=== PATIENT | female | born 1975 | race Caucasian/White ===

== ENCOUNTER 2021-02-22 16:15 | Emergency (ER) | payer BC, SELFPAY ==
--- NOTE | ~2021-02-22 | CT_ITS ---
EXAMINATION: CT abd pelvis lumbar wo con DATE: 02/22/2021 19:32 INDICATION: Right flank pain TECHNIQUE: Computed tomography (CT) of the abdomen, pelvis, and lumbar spine was performed without in travenous contrast. The dose-length product (DLP) was 402.48 mGy-cm. Automated exposure control and i terative reconstruction technique were employed. COMPARISON: 06/20/2013 FINDINGS: Abdomen/pelvis: Minimal dependent atelectasis is present in the lung bases. The heart size is normal. There are changes of interval gastric sleeve surgery. The gallbladder is surgically absent. The live r, spleen, pancreas, and adrenal glands are normal. The kidneys are unremarkable. No stones are ident ified in the kidneys, ureters, or bladder. There is no hydronephrosis or hydroureter. No pathological ly enlarged abdominal or pelvic lymph nodes are identified. There is no free intraperitoneal gas or e vidence of bowel obstruction. The appendix is normal. Lumbar spine: There is no fracture, dislocation, or subluxation. The vertebral body heights, alignmen t, and intervertebral disc spaces are normal. The prevertebral soft tissues are normal. IMPRESSION: 1. No CT correlate for the patient's symptoms. Reviewed, dictated and finalized at location F. [facility]
[2021-02-22 16:17] VITALS: BP 182/90; PULSE 95; RESP 20; TEMP 36.2; O2SAT 99
[2021-02-22 18:36] VITALS: BP 158/104; PULSE 84; RESP 17; TEMP 36.4; O2SAT 98
[2021-02-22 18:41] VITALS: BP 168/72; PULSE 80; RESP 18; O2SAT 99
--- NOTE | 2021-02-22 18:57 | ED.BACK ---
HPI - Back Pain/Injury General Chief Complaint: Back Pain/Injury Stated Complaint: right lower back pain Time Seen by Provider: 02/22/21 18:42 Source: patient Mode of arrival: ambulatory Limitations: no limitations History of Present Illness HPI Narrative: This is a 45 year old female that presents to the ER for right sided flank pain present over the last couple of days. No recent injuries or trauma. Reports the pain is constant. It is burning in nature. Also reports some pressure in her bladder. Denies fever, vomiting, dysuria, hematuria, saddle anesthesia or bowel/bladder incontinence. Related Data Allergies Allergy/AdvReac Type Severity Reaction Status Date / Time metformin Allergy Unknown Verified 12/27/11 16:14 [email or web address] Allergy Unknown Verified 04/03/13 15:17 Review of Systems Review of Systems: CONSTITUTIONAL: Denies fever GASTROINTESTINAL: Denies abdominal pain, nausea, vomiting GENITOURINARY: Denies dysuria or hematuria. SKIN: Denies rash MUSCULOSKELETAL: Reports back pain NEUROLOGIC: Denies numbness, or weakness. All systems reviewed & are unremarkable except as noted in HPI and below PMFSH Surgical History Surgical History (Updated 02/22/21 @ 19:00 by Effie Cisneros PA-C) History of bariatric surgery Family History Family History (Updated 10/10/13 @ 07:13 by DOCTOR UNKNOWN) Father Family history of lung cancer Other Cerebrovascular accident Diabetes mellitus Family history of allergic disorder Family history of cardiovascular disease Hypertension Social History Social History (Updated 02/22/21 @ 19:00 by Effie Cisneros PA-C) Alcohol intake: never Substance use: never Exam Narrative: GENERAL: Well-appearing, well-nourished, and in no acute distress. HEAD: Normocephalic, atraumatic. EYES: EOMI. CHEST: Clear to auscultation. No respiratory distress. No wheezes rales or rhonchi HEART: Regular rate and rhythm. No murmur heard. Normal peripheral pulses. ABDOMEN: Soft, nontender, nondistended, normal active bowel sounds. BACK: Tender to palpation of the right lumbar paraspinal musculature EXTREMITIES: Normal range of motion. No edema. SKIN: Warm, dry, no rash. NEURO: No focal deficits. Alert and oriented x3. Normal gait PSYCH: Normal mood and affect Course Vital Signs Vital signs: Vital Signs Temperature 97.2 F L 02/22/21 16:17 Pulse Rate 95 02/22/21 16:17 Respiratory Rate 20 02/22/21 16:17 Blood Pressure 182/90 H 02/22/21 16:17 Pulse Oximetry 99 02/22/21 16:17 Temperature 97.6 F 02/22/21 18:36 Pulse Rate 80 02/22/21 18:41 Respiratory Rate 18 02/22/21 18:41 Blood Pressure 168/72 H 02/22/21 18:41 Pulse Oximetry 99 02/22/21 18:41 MDM - Back Pain/Injury MDM Narrative Medical decision making narrative: Patient presents to the emergency department for right-sided lower back pain present over the last couple of days. No known injury or trauma. Patient is neurologically intact. She is afebrile and nontoxic-appearing. CBC and metabolic panel without concerning findings. UA without evidence of infection. CT scan of the abdomen/pelvis/lumbar spine without acute findings. Patient was updated on case findings. Reports improvement with IV pain medication. She is stable and felt appropriate for further outpatient evaluation. Instructed to have close follow-up with her primary doctor. She was given warnings to return to the ER. Lab Data Attestation: I reviewed the patient's lab results. Result diagrams: 02/22/21 19:23 02/22/21 19:23 Labs: Lab Results 02/22/21 02/22/21 02/22/21 Range/Units 18:52 19:23 19:23 WBC 6.8 (4.5-10.0) K/mm3 RBC 3.85 L (4.2-5.4) M/mm3 Hgb 12.3 (12.0-15.0) g/dL Hct 35.9 L (37.0-47.0) % MCV 93.2 (80-100) fl MCH 31.9 (26-34) pg MCHC 34.3 (32-36) g/dl RDW 12.4 (11.5-14.5) % Plt Count 201 (150-375) k/mm3 MPV 10.0 (7.4-10.4) fl Im
[2021-02-22 19:08] LABS: Add Urine Microscopic? YES; Appearance Urine Clear (Clear); Bilirubin Urine Negative (Negative); Blood Urine Negative (Negative); Color Urine Yellow (Yellow); Glucose Urine UA Negative (Negative); Ketones Urine Negative (Negative); Leukocyte Esterase Ur Negative LEU/UL (Negative); Mucus Urine Rare /lpf; Nitrate Urine Negative (Negative); Protein Urine Negative (Negative); RBC Urine 0-2 /hpf (0-2); Specific Grav Ur 1.013 (1.001-1.035); Squamous Epithelial Cell Urine Occasional /hpf (Few); WBC Urine 0-3 /hpf
[2021-02-22 19:29] LABS: Basophils Percent Auto 0.4 % (0.2-1.2); Eosinophils Absolute Auto 0.4 K/mm3 (0-0.3); Eosinophils Percent Auto 5.4 % (0-4.4); Hematocrit 35.9 % (37.0-47.0); Hemoglobin 12.3 g/dL (12.0-15.0); Immature Granulocyte Absolute 0.02 K/mm3 (0.00-0.031); Immature Granulocyte Percent A 0.3 % (0-0.5); Lymphocytes Percent Auto 33.8 % (18.3-44.2); Mean Corpuscular HGB Conc 34.3 g/dl (32-36); Mean Corpuscular Hemoglobin 31.9 pg (26-34); Mean Corpuscular Volume 93.2 fl (80-100); Monocytes Absolute Auto 0.5 K/mm3 (0.1-0.6); Monocytes Percent Auto 7.9 % (2.6-8.5); Neutrophils Absolute Auto 3.5 K/mm3 (1.3-6.7); Neutrophils Percent Auto 52.2 % (45.5-73.1); Platelet Count Result 201 k/mm3 (150-375); Red Blood Count 3.85 M/mm3 (4.2-5.4); Red Cell Distribution Width 12.4 % (11.5-14.5); White Blood Count 6.8 K/mm3 (4.5-10.0)
[2021-02-22 19:40] LABS: Anion Gap 6 mmol/L (8-16); Blood Urea Nitrogen 14 mg/dL (7-17); Calcium 9.4 mg/dL (8.4-10.2); Carbon Dioxide 25 mmol/L (22-30); Chloride 105 mmol/L (98-107); Estimated CRCL calculation 113 ml/min; Estimated Glomerular Filt Rate > 60; Glucose 94 mg/dL (65-110); Potassium 3.8 mmol/L (3.4-5.0); Sodium 136 mmol/L (137-145)
[2021-02-22] MEDS: ONDANSETRON INJ 4 MG/2 ML VIAL IV PUSH (20:01)
[2021-02-22] MEDS: MORPHINE SULFATE (*CRX) 4 MG/ML INJ IV PUSH (20:02)
== END 2021-02-22 21:56 | disposition home or self-care (01) ==
PROVIDERS: Physician Assistant; Emergency Provider Emergency Medicine; PCP Internal Medicine
DX: S39.012A Strain of muscle, fascia and tendon of lower back, initial encounter (principal); Z98.84 Bariatric surgery status; X58.XXXA Exposure to other specified factors, initial encounter
CPT/HCPCS: 36415; 72131; 74176; 80048; 81001; 81025; 85025; 96374; 96375; 99284; J0131; J2270; J2405

== ENCOUNTER 2021-06-21 08:19 | Emergency (ER) | payer BC, SELFPAY ==
--- NOTE | ~2021-06-21 | CT_ITS ---
EXAMINATION: CT lumbar spine wo con DATE: 06/21/2021 09:20 INDICATION: Acute low back pain TECHNIQUE: Computed tomography (CT) of the lumbar spine was performed without intravenous contrast. T he dose-length product (DLP) was 733.42 mGy-cm. Iterative reconstruction was used. COMPARISON: 02/22/2021 FINDINGS: There is no fracture, dislocation, or subluxation. The vertebral body heights and intervert ebral disc spaces are normal. The paravertebral soft tissues are unremarkable. IMPRESSION: 1. Normal lumbar spine. Reviewed, dictated and finalized at location A. IMPRESSION: 1. Normal lumbar spine.
[2021-06-21 08:25] VITALS: BP 153/90; PULSE 90; RESP 18; TEMP 37.4; O2SAT 97
[2021-06-21 09:14] LABS: Basophils Percent Auto 0.6 % (0.2-1.2); Eosinophils Absolute Auto 0.6 K/mm3 (0-0.3); Eosinophils Percent Auto 8.7 % (0-4.4); Hematocrit 37.6 % (37.0-47.0); Hemoglobin 13.1 g/dL (12.0-15.0); Immature Granulocyte Absolute 0.01 K/mm3 (0.00-0.031); Immature Granulocyte Percent A 0.2 % (0-0.5); Lymphocytes Absolute Auto 1.76 K/mm3 (0.9-3.2); Lymphocytes Percent Auto 27.8 % (18.3-44.2); Mean Corpuscular HGB Conc 34.8 g/dl (32-36); Mean Corpuscular Volume 91.9 fl (80-100); Mean Platelet Volume 9.8 fl (7.4-10.4); Monocytes Absolute Auto 0.6 K/mm3 (0.1-0.6); Neutrophils Absolute Auto 3.3 K/mm3 (1.3-6.7); Neutrophils Percent Auto 52.7 % (45.5-73.1); Platelet Count Result 177 k/mm3 (150-375); Red Blood Count 4.09 M/mm3 (4.2-5.4); Red Cell Distribution Width 12.8 % (11.5-14.5); White Blood Count 6.3 K/mm3 (4.5-10.0)
[2021-06-21] MEDS: HYDROmorphone HCL INJ (*CRX) 1 MG/ML SYR 0.5 MG IV PUSH (09:16)
[2021-06-21] MEDS: KETOROLAC 15 MG/ML VIAL (*BKC) IV PUSH (09:16)
[2021-06-21 09:25] LABS: Bilirubin Urine Negative (Negative); Blood Urine Negative (Negative); Color Urine Yellow (Yellow); Glucose Urine UA Negative (Negative); Ketones Urine Negative (Negative); Leukocyte Esterase Ur Negative LEU/UL (Negative); Nitrate Urine Negative (Negative); Protein Urine Negative (Negative); Specific Grav Ur 1.025 (1.001-1.035); Urobilinogen Urine 0.2 mg/dL (<2.0); pH Urine 6.5 (5.0-9.0)
[2021-06-21 09:26] LABS: Alanine Aminotransferase 15 U/L (6-35); Albumin Level 4.1 g/dL (3.5-5.1); Alkaline Phosphatase 62 U/L (38-126); Anion Gap 3 mmol/L (8-16); Aspartate Amino Transferase 25 U/L (14-36); Bilirubin,Total 0.4 mg/dL (0.2-1.3); Blood Urea Nitrogen 15 mg/dL (7-17); Calcium 8.7 mg/dL (8.4-10.2); Carbon Dioxide 27 mmol/L (22-30); Chloride 106 mmol/L (98-107); Estimated CRCL calculation 96 ml/min; Estimated Glomerular Filt Rate > 60; Glucose 88 mg/dL (65-110); Potassium 3.5 mmol/L (3.4-5.0); Sodium 136 mmol/L (137-145)
[2021-06-21 09:26] LABS: Add Urine Microscopic? NO; Appearance Urine Clear (Clear)
[2021-06-21 10:08] VITALS: O2SAT 98
[2021-06-21 10:09] VITALS: BP 134/87; O2SAT 97
[2021-06-21 10:15] VITALS: O2SAT 97
[2021-06-21 10:16] VITALS: BP 135/91; O2SAT 98
--- NOTE | 2021-06-21 10:16 | ED.BACK ---
HPI - Back Pain/Injury General Chief Complaint: Back Pain/Injury Stated Complaint: low back pain Time Seen by Provider: 06/21/21 08:25 Source: patient and family Mode of arrival: ambulatory Limitations: no limitations History of Present Illness HPI Narrative: 45-year-old with a history of depression, hypertension here with complaints of low back pain for past few days. Patient denies any trauma or lifting heavy and objects. No history of bladder or bowel incontinence. States there is some bone rubbing in her lower back and it is causing to have severe pain. She denies any urinary symptoms. MD elicited complaint: back pain Onset (ago): day(s) (3) Timing: constant Severity: severe Similar Symptoms Previously: No Quality: aching Location: lumbar spine Radiation: none Exacerbating factors: none Relieving factors: none Context: other (none) Associated symptoms: denies other symptoms Related Data Allergies Allergy/AdvReac Type Severity Reaction Status Date / Time metformin Allergy Unknown Other Verified 06/21/21 08:29 [email or web address] Allergy Unknown Other Verified 06/21/21 08:29 Review of Systems Review of Systems: All systems reviewed & are unremarkable except as noted in HPI and below Constitutional: Constitutional: Reports no additional constitutional complaints Eyes: Eyes: Reports no additional eye complaints ENT: Reports system reviewed and no additional complaints, except as documented Cardiovascular: Cardiovascular: Reports no additional cardiovascular complaints Respiratory: Respiratory: Reports no additional respiratory complaints Gastrointestinal: Gastrointestinal: Reports no additional gastrointestinal complaints Genitourinary: Genitourinary: Reports no additional female genitourinary complaints Musculoskeletal: Musculoskeletal: Reports as per HPI Neurologic: Reports system reviewed and no additional complaints, except as documented PMFSH Surgical History Surgical History History of bariatric surgery Family History Family History Father Family history of lung cancer Other Cerebrovascular accident Diabetes mellitus Family history of allergic disorder Family history of cardiovascular disease Hypertension Social History Social History Alcohol intake: never Substance use: never Exam Narrative: GENERAL: Well-appearing, well-nourished, and in no acute distress. HEAD: Normocephalic, atraumatic. EYES: PERRLA and EOMI. NECK: Supple. CHEST: Clear to auscultation. No respiratory distress. HEART: Regular rate and rhythm. No murmur heard. Normal peripheral pulses. ABDOMEN: Soft, nontender, nondistended, normal active bowel sounds. EXTREMITIES: Normal range of motion. No edema. Back pain in the L5-S1 area. No point tenderness. SLR positive at 40 degrees on the right SKIN: Warm, dry, no rash. NEURO: No focal deficits. Alert and oriented x3. PSYCH: Normal mood and affect. Course Course Emergency Course: Patient comfortably resting on the bed her pain is improved she was able to ambulate to the bathroom. Informed her about the lab work, CT findings. Recommended her to take pain medication and muscle relaxers as prescribed, follow-up with her primary doc. Vital Signs Vital signs: Vital Signs Temperature 37.4 C 06/21/21 08:25 Pulse Rate 90 06/21/21 08:25 Respiratory Rate 18 06/21/21 08:25 Blood Pressure 153/90 H 06/21/21 08:25 Pulse Oximetry 97 06/21/21 08:25 Temperature 37.4 C 06/21/21 08:25 Pulse Rate 90 06/21/21 08:25 Respiratory Rate 18 06/21/21 08:25 Blood Pressure 153/90 H 06/21/21 08:25 Pulse Oximetry 97 06/21/21 08:25 MDM - Back Pain/Injury MDM Narrative Medical decision making narrative: 45-year-old with history of hypertension now having lower back pain with no trauma or lifting she
[2021-06-21 10:35] VITALS: BP 135/91; PULSE 81; RESP 16; O2SAT 97
== END 2021-06-21 10:36 | disposition home or self-care (01) ==
PROVIDERS: Emergency Provider Family Medicine; PCP Internal Medicine
DX: S39.012A Strain of muscle, fascia and tendon of lower back, initial encounter (principal); I10 Essential (primary) hypertension; Z98.84 Bariatric surgery status; X58.XXXA Exposure to other specified factors, initial encounter
CPT/HCPCS: 36415; 72131; 80053; 81003; 85025; 96374; 96375; 99284; J1100; J1170; J1885

== ENCOUNTER 2022-04-24 21:05 | Emergency (ER) | payer BC, SELFPAY ==
[2022-04-24 21:05] VITALS: BP 150/90; PULSE 109; RESP 18; TEMP 38.2; O2SAT 98
--- NOTE | 2022-04-24 21:15 | ED.URI ---
HPI - URI/Sore Throat General Chief Complaint: Upper Respiratory Infection Stated Complaint: Sore Throat Time Seen by Provider: 04/24/22 21:15 Source: patient and RN notes reviewed Mode of arrival: ambulatory Limitations: no limitations History of Present Illness MD elicited complaint: sore throat Onset (ago): day(s) (2) Consistency: constant Severity: moderate Able to tolerate fluids by mouth: Yes Exacerbating factors: swallowing Relieving factors: nothing Associated symptoms: fever, chills, myalgias, headache, sore throat and nausea Related Data Home Medications Medication Instructions Recorded Confirmed esomeprazole magnesium 40 mg 40 mg PO DAILY 04/24/22 04/24/22 capsule,delayed release (Nexium) paroxetine HCl 40 mg tablet 40 mg PO DAILY 04/24/22 04/24/22 Allergies Allergy/AdvReac Type Severity Reaction Status Date / Time metformin Allergy Unknown Other Verified 06/21/21 08:29 [email or web address] Allergy Unknown Other Verified 06/21/21 08:29 [facility] Past Medical History Medical History (Updated 04/25/22 @ 00:00 by Bar Quach) Depression GERD (gastroesophageal reflux disease) Surgical History Surgical History History of bariatric surgery Family History Family History Father Family history of lung cancer Other Cerebrovascular accident Diabetes mellitus Family history of allergic disorder Family history of cardiovascular disease Hypertension Social History Social History Alcohol intake: never Substance use: never Exam Const: General: no acute distress, alert and ill appearing acutely Nutritional Appearance: well nourished Orientation/consciousness: patient oriented x3 Limitations: no limitations HENMT: Head: normal to inspection Ears: TM's normal bilaterally Face/Nose/Sinus: Normal external nose present Face and sinus: normal facial exam Mouth: Yes moist mucous membranes abnormal Throat: uvula midline, abnormal tonsil on the left erythema, exudates and hypertrophy and posterior oropharynx abnormal erythema and exudates Eyes: Conjunctivae: conjunctivae normal Pupils: Equal, round and reactive pupils present EOM: EOMs intact bilaterally Neck: Neck: normal visual inspection and lymphadenopathy left anterior cervical soft and tender Resp: Effort & Inspection: normal respiratory effort Auscultation: clear to auscultation bilaterally Cardio: Rate: regular rate Rhythm: regular rhythm GI: GI Palp: Yes Soft to palpation and No Tenderness to palpation present (GI) Auscultation: normal bowel sounds Back/Spine/Pelvis: Cervical Spine: cervical ROM normal Thoracic/Lumbar Spine: thoraco-lumbar ROM normal Skin: General skin exam: normal color Rashes: no rashes Neuro: General: patient oriented x3, moves all extremities, no focal motor deficits and CN's II-XI intact bilaterally Speech: normal speech Gait exam (Neuro): Normal gait present Extrem: General: normal to inspection and no clubbing, cyanosis or edema Psych: Mental Status: mental status grossly normal Affect: normal affect Attitude: cooperative Course Vital Signs Vital signs: Vital Signs Temperature 38.2 C H 04/24/22 21:05 Pulse Rate 109 H 04/24/22 21:05 Respiratory Rate 18 04/24/22 21:05 Blood Pressure 150/90 H 04/24/22 21:05 Pulse Oximetry 98 04/24/22 21:05 Oxygen Delivery Room Air 04/24/22 21:05 Temperature 38.2 C H 04/24/22 22:20 Pulse Rate 94 04/24/22 22:20 Respiratory Rate 20 04/24/22 22:20 Blood Pressure 132/85 04/24/22 22:20 Pulse Oximetry 98 04/24/22 22:20 Oxygen Delivery Room Air 04/24/22 22:20 MDM - URI/Sore Throat Differential Diagnosis Differential diagnosis: Likely upper respiratory infection, viral infection, bronchitis, influenza, pharyngitis and other (COVID) Lab Data Attestation: I reviewed the
[2022-04-24] MEDS: ACETAMINOPHEN 500 MG TABLET 1000 MG PO (21:21)
[2022-04-24 21:49] VITALS: BP 136/82; PULSE 98; RESP 18; TEMP 38.7; O2SAT 97
[2022-04-24 21:50] VITALS: TEMP 38.7
[2022-04-24 21:52] LABS: Strep Group A RT-PCR DETECTED (Negative)
[2022-04-24 22:04] LABS: Influenza A QL RT-PCR Negative (Negative); Influenza B QL RT-PCR Negative (Negative); SARS-CoV-2 RNA PCR Negative (Negative)
[2022-04-24] MEDS: AMOXICILLIN 250 MG CAP PO (22:14)
[2022-04-24 22:20] VITALS: BP 132/85; PULSE 94; RESP 20; TEMP 38.2; O2SAT 98
== END 2022-04-24 22:22 | disposition home or self-care (01) ==
PROVIDERS: Emergency Provider Emergency Medicine; PCP Internal Medicine
DX: J02.0 Streptococcal pharyngitis (principal); Z20.822 Contact with and (suspected) exposure to COVID-19
CPT/HCPCS: 87636; 87651; 99283; A9270

== ENCOUNTER → 2022-07-06 09:05 | Outpatient (CLI) | payer BC, SELFPAY ==
--- NOTE | ~2022-07-06 | US_ITS ---
US abdomen limited INDICATION: Abdominal pain nausea and vomiting. PROCEDURE: Realtime right upper abdominal ultrasound. COMPARISON: No prior studies for comparison. FINDINGS: The pancreas is normal without focal mass or pancreatic ductal dilation. Liver echotexture is normal without focal mass or intrahepatic biliary dilatation. There is normal directional flow i n the portal vein. Gallbladder is surgically absent. Common bile duct measures 5 mm. No sonographic Camara's sign. IMPRESSION: 1: Unremarkable limited abdominal ultrasound. Reviewed, dictated and finalized at location B.
== END ==
PROVIDERS: PCP Nurse Practitioner Family; Visit Provider Nurse Practitioner Family
DX: R10.10 Upper abdominal pain, unspecified (principal)
CPT/HCPCS: 76705

== ENCOUNTER 2022-07-07 07:39 | Outpatient (CLI) | payer BC, SELFPAY ==
[2022-07-07 08:15] LABS: Basophils Absolute Auto 0.1 K/mm3 (0.0-0.1); Basophils Percent Auto 0.6 % (0.2-1.2); Eosinophils Absolute Auto 0.4 K/mm3 (0-0.3); Eosinophils Percent Auto 4.8 % (0-4.4); Hematocrit 40.3 % (37.0-47.0); Hemoglobin 13.4 g/dL (12.0-15.0); Immature Granulocyte Absolute 0.03 K/mm3 (0.00-0.031); Immature Granulocyte Percent A 0.4 % (0-0.5); Lymphocytes Absolute Auto 2.72 K/mm3 (0.9-3.2); Lymphocytes Percent Auto 33.7 % (18.3-44.2); Mean Corpuscular HGB Conc 33.3 g/dl (32-36); Mean Corpuscular Hemoglobin 30.7 pg (26-34); Mean Corpuscular Volume 92.4 fl (80-100); Mean Platelet Volume 10.3 fl (7.4-10.4); Monocytes Absolute Auto 0.6 K/mm3 (0.1-0.6); Monocytes Percent Auto 7.7 % (2.6-8.5); Neutrophils Absolute Auto 4.3 K/mm3 (1.3-6.7); Neutrophils Percent Auto 52.8 % (45.5-73.1); Platelet Count Result 283 k/mm3 (150-375); Red Blood Count 4.36 M/mm3 (4.2-5.4); Red Cell Distribution Width 13.1 % (11.5-14.5); White Blood Count 8.1 K/mm3 (4.5-10.0)
[2022-07-07 08:22] LABS: Appearance Urine Clear (Clear); Bacteria Urine None Seen /hpf; Bilirubin Urine Negative (Negative); Blood Urine Negative (Negative); Color Urine Yellow (Yellow); Glucose Urine UA Negative (Negative); Ketones Urine Negative (Negative); Leukocyte Esterase Ur 2+ LEU/UL (NEGATIVE); Nitrate Urine Negative (Negative); Non Pathogenic Casts 0-2; Protein Urine Trace mg/dL (Negative); Specific Grav Ur 1.027 (1.001-1.035); Squamous Epithelial Cell Urine Occasional /hpf (Few)
[2022-07-07 08:30] LABS: Add Urine Microscopic? YES
[2022-07-07 09:22] LABS: Vitamin D 25 Hydroxy 15.8 ng/mL
[2022-07-07 09:44] LABS: Alanine Aminotransferase 19 U/L (6-35); Albumin Level 4.3 g/dL (3.5-5.1); Alkaline Phosphatase 74 U/L (38-126); Anion Gap 7 mmol/L (8-16); Aspartate Amino Transferase 29 U/L (14-36); Bilirubin,Total 0.4 mg/dL (0.2-1.3); Blood Urea Nitrogen 11 mg/dL (7-17); Carbon Dioxide 28 mmol/L (22-30); Chloride 105 mmol/L (98-107); Cholesterol 201 mg/dL (0-200); Estimated Glomerular Filt Rate > 60; Glucose 87 mg/dL (65-110); HDL Direct 53 mg/dL; Magnesium 2.2 mg/dL (1.6-2.3); Potassium 3.7 mmol/L (3.4-5.0); Sodium 140 mmol/L (137-145); Triglycerides 113 mg/dL (<150)
[2022-07-07 09:56] LABS: LDL Cholesterol Direct 120 mg/dL
[2022-07-07 10:50] LABS: Folic Acid 3.4 ng/mL (2.76->20)
[2022-07-07 11:20] LABS: Iron 104 ug/dL (37-170)
[2022-07-07 11:31] LABS: Percent Iron Saturation 39 % (20-50)
== END 2022-07-07 07:40 | disposition home or self-care (01) ==
PROVIDERS: PCP Nurse Practitioner Family; Visit Provider Nurse Practitioner Family
DX: Z00.00 Encounter for general adult medical examination without abnormal findings (principal); Z13.29 Encounter for screening for other suspected endocrine disorder; Z13.6 Encounter for screening for cardiovascular disorders; E55.9 Vitamin D deficiency, unspecified; Z98.84 Bariatric surgery status; M62.838 Other muscle spasm; F41.9 Anxiety disorder, unspecified; F32.9 Major depressive disorder, single episode, unspecified; D64.9 Anemia, unspecified
CPT/HCPCS: 36415; 80053; 80061; 81001; 82306; 82607; 82728; 82746; 83540; 83550; 83735; 84443; 85025

== ENCOUNTER 2022-09-23 10:40 | Outpatient (CLI) | payer BC, SELFPAY ==
--- NOTE | ~2022-09-23 | XR_ITS ---
Thoracic spine: Clinical Indication: Back pain AP and lateral views were performed. No fracture is seen. There is normal alignment of the vertebrae. The intervertebral disc spaces appe ar normal. Paravertebral soft tissues appear normal. Impression: No significant abnormalities noted. Reviewed, dictated and finalized at [facility]. Impression: No significant abnormalities noted.
== END 2022-09-23 10:41 | disposition home or self-care (01) ==
PROVIDERS: PCP Nurse Practitioner Family; Visit Provider Nurse Practitioner Family
DX: M54.6 Pain in thoracic spine (principal)
CPT/HCPCS: 72070

== ENCOUNTER 2022-10-09 14:00 | Emergency (ER) | payer BC, SELFPAY ==
--- NOTE | ~2022-10-09 | XR_ITS ---
EXAMINATION: 1. XR femur LT min 2V 2. XR hip BI 2V w AP pelvis DATE: 10/09/2022 15:03 INDICATION: Posterior left hip and buttock pain radiating down the left leg post fall one day prior. TECHNIQUE: 1. Anteroposterior view of the pelvis and anteroposterior and frog-leg lateral views of both the left and right hips were obtained. 2. AP and lateral views of the left femur were each obtained on overlapping proximal and distal image s. COMPARISON: None. FINDINGS: Bone alignment is normal. No fracture or suspected avascular necrosis. Coccygeal profunda and mild os teoarthritis of both hips. Additional mild osteoarthritis at the bilateral sacroiliac joints and mild osteitis pubis. Cystic change at the anterosuperior left femoral neck. Joint space at the left knee appear normal on nonweightbearing imaging. No left knee joint effusion. Soft tissues are unremarkable . IMPRESSION: 1. 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 No acute osseous abn ormality. Reviewed, dictated and finalized at location A. IMPRESSION: 1. Mild polyarticular osteoarthritis in the bilateral hip and sacroiliac joints . No acute osseous abnormality.
[2022-10-09 14:00] VITALS: BP 151/88; PULSE 88; RESP 16; TEMP 37.3; O2SAT 99
[2022-10-09 14:11] VITALS: BP 151/88; PULSE 88; RESP 16; TEMP 37.3; O2SAT 99
[2022-10-09] MEDS: methylPREDNISolone ACETATE 40 MG/ML VIAL 80 MG IM (14:28)
[2022-10-09] MEDS: ORPHENADRINE CITRATE 30 MG/ML 2 ML VIAL 60 MG IM (14:29)
[2022-10-09] MEDS: MORPHINE SULFATE (*CRX) 4 MG/ML INJ IM (14:29)
--- NOTE | 2022-10-09 14:40 | ED.FALL ---
HPI - Fall General Chief Complaint: Fall Stated Complaint: fall Time Seen by Provider: 10/09/22 14:09 Source: patient and family Mode of arrival: ambulatory Limitations: physical limitation History of Present Illness HPI Narrative: 46 yo F with PMHx of soham-en-y gastric bypass surgery, depression, anxiety, presented to ED after sustaining a fall from standing position and landed in the left buttock area. She said pain is 10/10 and she also has numbness and tingling down her LLE. She denied any saddle anesthesia. She has normal urine and bowel habits. MD complaint: fall Onset (ago): hour(s) Fall from: standing Fall witnessed: yes, by family Place fall occurred: street Loss of consciousness: none Prolonged down time: no Symptoms prior to fall: none Context: tripped/slipped Location of injury: pelvis and buttocks Location of injury - extremities: Left: thigh Severity: severe Severity scale (1-10): 10 Quality: stabbing Associated symptoms (after fall): numbness Related Data Allergies Allergy/AdvReac Type Severity Reaction Status Date / Time metformin Allergy Unknown Other Verified 10/09/22 14:10 [email or web address] Allergy Unknown Other Verified 10/09/22 14:10 Review of Systems Constitutional: Constitutional: Reports as per HPI and Reports no additional constitutional complaints Eyes: Eyes: Reports as per HPI and Reports no additional eye complaints ENT: Reports system reviewed and no additional complaints, except as documented and Reports as per HPI Cardiovascular: Cardiovascular: Reports as per HPI and Reports no additional cardiovascular complaints Respiratory: Respiratory: Reports as per HPI and Reports no additional respiratory complaints Gastrointestinal: Gastrointestinal: Reports as per HPI and Reports no additional gastrointestinal complaints Genitourinary: Genitourinary: Reports as per HPI Musculoskeletal: Musculoskeletal: Reports no additional musculoskeletal complaints and Reports as per HPI Integumentary/Breasts: Skin/Breast: Reports system reviewed and no additional complaints, except as docu and Reports as per HPI Neurologic: Reports system reviewed and no additional complaints, except as documented and Reports as per HPI Psychiatric: Psychiatric: Reports no additional psychiatric complaints and Reports as per HPI Endocrine: Endocrine: Reports no additional endocrine complaints and Reports as per HPI Hematologic/Lymphatic: Hematologic/Lymphatic: Reports no additional hematologic/lymphatic complaints and Reports as per HPI Allergic/Immunologic: Allergic/Immunologic: Reports no additional allergic/immunologic complaints and Reports as per HPI [facility] Past Medical History Medical History (Updated 10/09/22 @ 15:32 by Nico Michel MD) Allergies Anemia Anxiety Cholecystectomy planned Depression Elevated BP without diagnosis of hypertension Encounter to establish care GERD (gastroesophageal reflux disease) History of abdominal hernia Insomnia Major depression Migraines Muscle spasm Screening mammogram for breast cancer Thoracic back pain Tobacco abuse Upper abdominal pain Vitamin D deficiency Vitamin deficiency Surgical History Surgical History (Updated 05/31/22 @ 12:03 by Darcie Kwan NP) History of bariatric surgery History of hysterectomy Family History Family History (Updated 05/30/22 @ 10:27 by TODD Aguilar) Father Family history of lung cancer Hypertension Grandparent Cancer Hypertension Depression Diabetes mellitus Anxiety Mother Hypertension Depression Anxiety Sibling Depression Anxiety Other Cerebrovascular accident Family history of allergic disorder Family history of cardiovascular disease Social History Social History Smoking packs per day: 1 Smoking cigarettes per day: 20.0 Smoking status: Current every day smoker Alcohol intake: current Alcohol use details: Rarely Substance u
[2022-10-09 15:24] VITALS: BP 140/78; PULSE 87; RESP 16; O2SAT 99
== END 2022-10-09 15:39 | disposition home or self-care (01) ==
PROVIDERS: Emergency Provider Emergency Medicine; PCP Nurse Practitioner Family
DX: M25.552 Pain in left hip (principal); F17.210 Nicotine dependence, cigarettes, uncomplicated; W01.0XXA Fall on same level from slipping, tripping and stumbling without subsequent striking against object, initial encounter
CPT/HCPCS: 73521; 73552; 96372; 99284; J1030; J2270; J2360

== ENCOUNTER 2022-11-11 11:36 | Emergency (ER) | payer OTHER, BC, SELFPAY ==
--- NOTE | ~2022-11-11 | CT_ITS ---
EXAMINATION: CT cervical spine wo con DATE: 11/11/2022 13:28 INDICATION: Head injury. TECHNIQUE: Computed tomography (CT) of the cervical spine was performed without intravenous contrast. Automated exposure control and iterative reconstruction technique were employed. The dose-length pro duct was 443.12 mGy-cm. COMPARISON: None FINDINGS: There is 9 degrees dextrocurvature of cervical spine. There is mild kyphosis of cervical sp ine. Vertebral body heights are normal. There is mildly decreased disc height at C3-C4. The following disc levels are specifically discussed: C2-C3: There is no uncovertebral joint osteoarthritis. There is mild right and severe left facet join t osteoarthritis. There is mild left neural foraminal stenosis. There is no central canal stenosis. C3-C4: There is mild left uncovertebral joint osteoarthritis. There is moderate left facet joint oste oarthritis. There is no neural foraminal stenosis. There is mild central canal stenosis. C4-C5: There is no uncovertebral joint osteoarthritis. There is no facet joint osteoarthritis. There is no neural foraminal stenosis. There is no central canal stenosis. C5-C6: There is no uncovertebral joint osteoarthritis. There is no facet joint osteoarthritis. There is no neural foraminal stenosis. There is no central canal stenosis. C6-C7: There is no uncovertebral joint osteoarthritis. There is no facet joint osteoarthritis. There is no neural foraminal stenosis. There is mild central canal stenosis. C7-T1: There is no uncovertebral joint osteoarthritis. There is mild bilateral facet joint osteoarthr itis. There is no neural foraminal stenosis. There is no central canal stenosis. IMPRESSION: 1. No fracture. 2. Mild cervical spondylosis. Reviewed, dictated and finalized at location E.
--- NOTE | ~2022-11-11 | CT_ITS ---
EXAMINATION: CT BRAIN W/O DATE: 11/11/2022 13:28 INDICATION: Trauma. TECHNIQUE: Computed tomography (CT) of the head was performed without intravenous contrast. The dose- length product was 681.00 mGy-cm. Automated exposure control and iterative reconstruction technique w ere employed. COMPARISON: No prior studies for comparison. FINDINGS: Normal brain parenchymal volume for age. Normal witt-white differentiation. No acute intrac ranial hemorrhage, infarction, mass or mass effect. No ventriculomegaly or midline shift. Midline sagittal images demonstrate a normal corpus callosum, c raniovertebral junction and sella turcica. Basilar cisterns are patent. Paranasal sinuses and mastoids are pneumatized. No depressed skull fractures. IMPRESSION: 1. No acute intracranial abnormality. Reviewed, dictated and finalized at location B.
--- NOTE | ~2022-11-11 | XR_ITS ---
EXAMINATION: XR hip RT 2V w AP pelvis DATE: 11/11/2022 13:34 INDICATION: Right hip pain. Fall. TECHNIQUE: An anteroposterior view of the pelvis and 2 views of right hip were obtained. COMPARISON: Pelvis and hip radiographs 10/09/2022 FINDINGS: Bone alignment is normal. No fracture. There is mild osteoarthritis of the hips. Osteitis p ubis is noted. IMPRESSION: 1. Mild osteoarthritis of the hips. Reviewed, dictated and finalized at location E.
[2022-11-11 11:41] VITALS: BP 167/92; PULSE 77; RESP 17; TEMP 36.7; O2SAT 100
[2022-11-11] MEDS: ONDANSETRON HCL ODT 4 MG TABLET PO (12:38)
[2022-11-11] MEDS: CYCLOBENZAPRINE HCL 10 MG TABLET PO (12:38)
--- NOTE | 2022-11-11 12:47 | ED.GENADULT ---
HPI - General Adult General Chief complaint: Fall Stated complaint: fall, dizzy Time Seen by Provider: 11/11/22 12:09 History of Present Illness HPI narrative: Sara Rivas is a 46 y/o female who presents with reports of ground level fall, slipping on a wet floor at about 1100 today while at work. She says that she slipped on the floor falling backwards hitting the back of her head and her right hip She reports she was able to get back up, she sat at her desk and then started to feel a little out of it, fuzzy vision so she decided to come get checked out. Reports feeling a little nauseated, with a slight headache - she took Excedrin [employer] Related Data Home Medications Medication Instructions Recorded Confirmed esomeprazole magnesium 40 mg mg 11/11/22 capsule,delayed release Allergies Allergy/AdvReac Type Severity Reaction Status Date / Time metformin Allergy Unknown Other Verified 10/09/22 14:10 varenicline Allergy Unknown Other Verified 10/09/22 14:10 Review of Systems Review of Systems: CONSTITUTIONAL: Denies fever, chills, or sweats. EYES: Denies visual changes, redness, or discharge. ENT: Denies rhinorrhea, congestion, sore throat, or otalgia. CARDIOVASCULAR: Denies chest pain, palpitations, or edema. RESPIRATORY: Denies cough or dyspnea. GASTROINTESTINAL: Denies abdominal pain, nausea, vomiting, or diarrhea. GENITOURINARY: Denies dysuria or hematuria. SKIN: Denies rash or itching. MUSCULOSKELETAL: Denies back pain, joint pain, or myalgia. NEUROLOGIC: Reports headache, Denies numbness. PSYCHIATRIC: Denies anxiety or depression. [facility] Past Medical History Medical History Allergies Anemia Anxiety Cholecystectomy planned Depression Elevated BP without diagnosis of hypertension Encounter to establish care GERD (gastroesophageal reflux disease) History of abdominal hernia Insomnia Major depression Migraines Muscle spasm Screening mammogram for breast cancer Thoracic back pain Tobacco abuse Upper abdominal pain Vitamin D deficiency Vitamin deficiency Surgical History Surgical History History of bariatric surgery History of hysterectomy Family History Family History Father Family history of lung cancer Hypertension Grandparent Cancer Hypertension Depression Diabetes mellitus Anxiety Mother Hypertension Depression Anxiety Sibling Depression Anxiety Other Cerebrovascular accident Family history of allergic disorder Family history of cardiovascular disease Social History Social History Smoking packs per day: 1 Smoking cigarettes per day: 20.0 Smoking status: Current every day smoker Alcohol intake: current Alcohol use details: Rarely Substance use: never Substance use type: does not use Lack of Transportation: No Lack of Food: Never True Current Housing: I Have Housing Concerned About Future Housing: No Difficulty Paying Gas/Electric Bills: No Difficulty Paying for Meds: No Currently Unemployed: No Education: High School Diploma/GED Difficulty w/ Childcare or Family Care: No Exam Narrative: GENERAL: Well-appearing, well-nourished, and in no acute distress. HEAD: Normocephalic, atraumatic. EYES: PERRLA and EOMI. ENT: Nares clear, no rhinorrhea or epistaxis. Mucous membranes moist. Oropharynx without tonsillar hypertrophy exudate or other lesions. NECK: Supple. No adenopathy or masses. No carotid bruits or JVD CHEST: Clear to auscultation. No respiratory distress. No wheezes rales or rhonchi HEART: Regular rate and rhythm. No murmur heard. Normal peripheral pulses. ABDOMEN: Soft, nontender, nondistended, normal active bowel sounds. EXTREMITIES: Normal range of motion. No edema. SKIN: Warm, dry, no rash. NEURO: No f
[2022-11-11 14:09] VITALS: BP 134/97; PULSE 81; RESP 16; O2SAT 97
== END 2022-11-11 14:13 | disposition home or self-care (01) ==
PROVIDERS: Emergency Provider Nurse Practitioner Family; PCP Nurse Practitioner Family
DX: S79.911A Unspecified injury of right hip, initial encounter (principal); K21.9 Gastro-esophageal reflux disease without esophagitis; E55.9 Vitamin D deficiency, unspecified; F41.9 Anxiety disorder, unspecified; F32.9 Major depressive disorder, single episode, unspecified; F17.210 Nicotine dependence, cigarettes, uncomplicated; Z86.2 Personal history of diseases of the blood and blood-forming organs and certain disorders involving the immune mechanism; Z98.84 Bariatric surgery status; Z90.710 Acquired absence of both cervix and uterus; M47.812 Spondylosis without myelopathy or radiculopathy, cervical region; M16.0 Bilateral primary osteoarthritis of hip; W01.0XXA Fall on same level from slipping, tripping and stumbling without subsequent striking against object, initial encounter
CPT/HCPCS: 70450; 72125; 73502; 99284; A9270

== ENCOUNTER 2024-01-27 11:13 | Emergency (ER) | payer SELFPAY ==
--- NOTE | ~2024-01-27 | XR_ITS ---
EXAMINATION: XR tibia fibula RT 2V, XR ankle RT min 3V DATE: 01/27/2024 11:49 INDICATION: Trauma to the right lower leg with pain and swelling at the right ankle TECHNIQUE: 1. Anteroposterior and lateral views of the right tibia and fibula were obtained. 2. Anteroposterior, oblique, mortise, and lateral views of the right ankle were obtained. COMPARISON: None. FINDINGS: Bone alignment is normal. No fracture. Joint spaces appear normal at the right knee, ankle and visual ized mid and hindfoot. Moderate-sized Achilles and plantar calcaneal spurs. Mild subcutaneous edema a t the medial aspect of the distal lower leg and extending over the medial malleolus. No ankle joint e ffusion. IMPRESSION: 1. No osseous abnormality. Reviewed, dictated and finalized at location A. R OFF DRYING KILN IMPRESSION: 1. No osseous abnormality. IMPRESSION: 1. No osseous abnormality.
[2024-01-27 11:15] VITALS: BP 148/90; PULSE 84; RESP 20; TEMP 37.4
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
[2024-01-27] MEDS: KETOROLAC 30 MG/ML VIAL (*BKC) IM (12:02)
[2024-01-27 12:21] VITALS: BP 137/84; PULSE 74; RESP 20; TEMP 36.8; O2SAT 98
--- OUTSIDE RECORDS SUMMARY | 2024-01-31 09:09 | XMS_ITS | Continuity of Care Document ---
Author Organization [facility] Address [address] [place] [address] [address] [place] [address] Phone Care Team Providers Care [place]us[place] Name Role Phone Zheng OD, Ciro Unavailable Unavailable Procedures Procedure Date Eye Exam & Treatment Advance Directives Directive Yes / No Effective Date File Name No Information Encounters Encounter Description Practice Location Reason(s) For Visit Diagnoses Date Provider Providers Copied on Encounter [facility], [address] [place] [address] [address], [place], [place], [id number], [place] tel:[phone] [facility] No Information 8-200 9 Zheng OD Ciro. [address] [facility] [place] , [address], [place], [address], [place]. tel:[phone] Family History Family Member Type Diagnosis Age At Onset No Information Payers Payer name Insurance type Covered constitution party ID Authoriza tion(s) Medicaid [facility] [id number] Social History Type Description Quantity Date Captured [...]
--- OUTSIDE RECORDS SUMMARY | 2024-01-31 11:31 | XMS_ITS | Continuity of Care Document ---
Author Organization [facility] Address [address] [place] [address] [address] [place] [address] Phone Care Team Providers Care [employer] Name Role Phone Zheng OD, Ciro Unavailable Unavailable Procedures Procedure Date Eye Exam & Treatment Advance Directives Directive Yes / No Effective Date File Name No Information Encounters Encounter Description Practice Location Reason(s) For Visit Diagnoses Date Provider Providers Copied on Encounter [facility], [address] [place] [address] [address], [place], [place], [id number], [place] tel:[phone] [facility] No Information 8-200 9 Zheng OD Ciro. [address] [facility] [place] , [address], [place], [address], [place]. tel:[phone] Family History Family Member Type Diagnosis Age At Onset No Information Payers Payer name Insurance type Covered republican ID Authoriza tion(s) Medicaid [facility] [id number] Social History Type Description Quantity Date Captured [...]
== END 2024-01-27 12:21 | disposition home or self-care (01) ==
PROVIDERS: Emergency Provider Internal Medicine Critical Care Medicine
DX: S80.11XA Contusion of right lower leg, initial encounter (principal); S93.401A Sprain of unspecified ligament of right ankle, initial encounter; F17.210 Nicotine dependence, cigarettes, uncomplicated; Z23 Encounter for immunization; W50.0XXA Accidental hit or strike by another person, initial encounter
CPT/HCPCS: 73590; 73610; 90471; 96372; 99284; J1885

== ENCOUNTER 2024-02-22 19:43 | Observation (INO) | payer OTHER, SELFPAY ==
[2024-02-22] VITALS (28 sets, daily range): BP systolic 113–157; BP diastolic 72–97; PULSE 63–110; RESP 13–22; TEMP 36.6; O2SAT 97–100; BMI 26.1
--- NOTE | ~2024-02-22 | CT_ITS ---
EXAMINATION: CTA chest abdomen DATE: 02/22/2024 21:23 INDICATION: chest pain radiating to back, suspected dissection . TECHNIQUE: Computed tomography (CT) of the chest, abdomen, and pelvis was performed with 100 mL Omnip aque-350 intravenous contrast in the arterial phase. Automated exposure control and iterative reconst ruction technique were employed. The dose-length product was 653.26 mGy-cm. COMPARISON: CT abdomen pelvis 02/22/2021 FINDINGS: CHEST: Thoracic aorta: No significant dilation. No dissection. Lung parenchyma and airways: Lungs and airways are clear. Thoracic inlet, axillae and chest wall: No thyroid or soft tissue mass. No axillary lymphadenopathy. Mediastinum: No mass or lymphadenopathy. Heart and pericardium: Normal heart size. No pericardial effusion. Coronary artery calcifications: . Pleura: No effusion or mass. Thoracic bones: No acute osseous finding in the chest. ABDOMEN/PELVIS: Liver: Normal. Biliary/Gallbladder: Gallbladder is absent. No bile duct dilation. Pancreas: No mass or duct dilation. Spleen: Normal. Adrenals:No mass. Kidneys: No suspicious mass, obstructing stone, or hydronephrosis. GI tract: Status post gastric sleeve surgery. Moderate gastric wall edema. No small or large bowel di lation. Normal appendix. Mesentery/Peritoneum: No ascites, mass, or free air. Retroperitoneum: No mass Pelvis: Normal urinary bladder. Absent uterus. Bilateral ovaries not confidently identified. Soft Tissues: Soft tissues and body wall unremarkable. Abdominopelvic bones: No acute osseous finding in the abdomen/pelvis. IMPRESSION: Moderate gastritis. Reviewed, dictated and finalized at location K. [employer] IMPRESSION: Moderate gastritis.
--- NOTE | 2024-02-22 19:45 | ECG_ITS ---
Test Date: 2024-02-22 19:44:49 Measurements Intervals [place] Rate: 84 P: 24 MD: 167 QRS: 9 QRSD: 88 T: 25 QT: 366 QTc: 435 Interpretive Statements SINUS RHYTHM No previous ECG available for comparison Electronically Signed On 02-23-2024 16:18:10 DATA SCIENCE AND IOT MANAGER by Vianney Jones M.D.
--- NOTE | 2024-02-22 19:47 | ED_ITS ---
HPI - General Adult General Chief complaint: Shortness of Breath/Dyspnea Stated complaint: chest pain Time Seen by Provider: 02/22/24 19:44 History of Present Illness HPI narrative: Sara is a 48F with a PMH of insomnia, GERD, tobacco abuse, anxiety, previous bariatric surgery, and anemia that presented to the ED with chest pain. She has right sided chest pain that radiates to her back and she feels short of breath for a couple hours how. She is also very nervous. No vomiting or syncope reported. Related Data Home Medications ?Medication ?Instructions ?Recorded ?Confirmed ?Last Taken ?Type esomeprazole magnesium 40 mg 40 mg PO Q24H 11/11/22 02/22/24 02/22/24 History capsule,delayed release Allergies Allergy/AdvReac Type Severity Reaction Status Date / Time metformin Allergy Unknown Other Verified 02/22/24 20:10 [email or web address] Allergy Unknown Other Verified 02/22/24 20:10 Review of Systems 2 Review of Systems: All systems reviewed & are unremarkable except as noted in HPI and below PMFSH Past Medical History Medical History Thoracic back pain Migraines Vitamin D deficiency Vitamin deficiency Insomnia Screening mammogram for breast cancer Tobacco abuse Elevated BP without diagnosis of hypertension Encounter to establish care History of abdominal hernia Upper abdominal pain Major depression Anemia Muscle spasm Anxiety Allergies Cholecystectomy planned Depression GERD (gastroesophageal reflux disease) Surgical History Surgical History History of hysterectomy History of bariatric surgery Family History Family History Father Family history of lung cancer Hypertension Grandparent Cancer Hypertension Depression Diabetes mellitus Anxiety Mother Hypertension Depression Anxiety Sibling Depression Anxiety Other Cerebrovascular accident Family history of allergic disorder Family history of cardiovascular disease Social History Social History Smoking packs per day: 1 Smoking cigarettes per day: 20.0 Years smoked: 33 Smoking pack-years: 33.00 Smoking status: Current every day smoker Alcohol intake: current Drinks per week: 1 Alcohol use details: Rarely Substance use: former Substance use type: marijuana Do You Feel Safe in your Home?: Yes Lack of Transportation: No Lack of Food: Never True Current Housing: I Have Housing Concerned About Future Housing: No Difficulty Paying Gas/Electric Bills: No Difficulty Paying for Meds: No Currently Unemployed: No Education: High School Diploma/GED Difficulty w/ Childcare or Family Care: No Spiritual care concerns: No Exam 2 Const: General: cooperative, healthy appearing, no acute distress, well developed, alert, awake and Physically active Orientation/consciousness: o riented to person, oriented to place and oriented to time HENMT: Head: normal to inspection, normocephalic and atraumatic Ears: h earing grossly normal bilaterally and external ears normal Face/Nose/Sinus: N ormal external nose present Eyes: General: appearance normal, both eyes and all related structures P eriorbital: periorbital findings normal Sclera: sclerae normal Pupils: E qual, round and reactive pupils present Neck: Neck: normal visual inspection Chest: Chest palpation & inspection: normal inspection of the chest Resp: Effort & Inspection: normal respiratory effort, able to speak in complete sentences and no respiratory distress Auscultation: clear to auscultation bilaterally Cardio: Jugular venous distension: no JVD Rate: regular rate Rhythm: r egular rhythm GI: Inspection: normal to inspection GI Palp: Yes Soft to palpation A uscultation: normal bowel sounds Skin: General skin exam: normal color and no rashes or lesions noted Neuro: General: oriented to person, oriented to place and oriented to time Cranial nerves: Yes Equal, round and reactive pupils present Extrem: General: normal to inspection Course Course Emergency Course: Ordered labs, EKG, CTA, morphine and ativan EKG showed NSR with a rate of 84, normal axis, and no ST elevation/depression EXAMINATION: CTA chest abdomen DATE: 02/22/2024 21:23 INDICATION: chest pain radiating to back, suspected dissection . TECHNIQUE: Computed tomography (CT) of the chest, abdomen, and pelvis was performed with 100 mL Omnipaque-350 intravenous contrast in the arterial phase. Automated exposure control and iterative reconstruction technique were employed. The dose-length product was 653.26 mGy-cm. COMPARISON: CT abdomen pelvis 02/22/2021 FINDINGS: CHEST: Thoracic aorta: No significant dilation. No dissection. Lung parenchyma and airways: Lungs and airways are clear. Thoracic inlet, axillae and chest wall: No thyroid or soft tissue mass. No axillary lymphadenopathy. Mediastinum: No mass or lymphadenopathy. Heart and pericardium: Normal heart size. No pericardial effusion. Coronary artery calcifications: . Pleura: No effusion or mass. Thoracic bones: No acute osseous finding in the chest. ABDOMEN/PELVIS: Liver: Normal. Biliary/Gallbladder: Gallbladder is absent. No bile duct dilation. Pancreas: No mass or duct dilation. Spleen: Normal. Adrenals:No mass. Kidneys: No suspicious mass, obstructing stone, or hydronephrosis. GI tract: Status post gastric sleeve surgery. Moderate gastric wall edema. No small or large bowel dilation. Normal appendix. Mesentery/Peritoneum: No ascites, mass, or free air. Retroperitoneum: No mass Pelvis: Normal urinary bladder. Absent uterus. Bilateral ovaries not confidently identified. Soft Tissues: Soft tissues and body wall unremarkable. Abdominopelvic bones: No acute osseous finding in the abdomen/pelvis. IMPRESSION: Moderate gastritis. Labs are largely unremarkable GI cocktail was given with no effect. Next nitro was given which significantly improved her pain. Given her strong family history of heart problems, smoking status, and continued will admit for observation and repeat troponin Vital Signs Vital signs: Vital Signs Pulse Rate 88 02/22/24 19:45 Oxygen Delivery Room Air 02/22/24 19:45 Temperature 98.2 F 02/23/24 04:00 Pulse Rate 81 02/23/24 04:00 Respiratory Rate 16 02/23/24 04:00 Blood Pressure 144/82 H 02/23/24 04:00 Pulse Oximetry 98 02/23/24 04:00 Oxygen Delivery Room Air 02/23/24 04:00 Medical Decision Making Vital Signs Vital Signs: Vital Signs Pulse Rate 88 02/22/24 19:45 Oxygen Delivery Room Air 02/22/24 19:45 Temperature 98.2 F 02/23/24 04:00 Pulse Rate 81 02/23/24 04:00 Respiratory Rate 16 02/23/24 04:00 Blood Pressure 144/82 H 02/23/24 04:00 Pulse Oximetry 98 02/23/24 04:00 Oxygen Delivery Room Air 02/23/24 04:00 Lab Data 02/22/24 19:55 02/22/24 19:55 Labs: Lab Results 02/22/24 Range/Units 19:55 WBC 9.8 (4.8-10.8) K/mm3 RBC 4.34 (4.20-5.40) M/mm3 Hgb 13.4 (12.0-15.0) g/dL Hct 39.9 (35.0-49.0) % MCV 91.9 (78.0-102.0) fL MCH 30.9 (27.0-31.0) pg MCHC 33.6 (32-36) g/dL RDW 12.7 (11.6-14.4) % Plt Count 242 (150-420) K/mm3 MPV 10.4 (9.2-11.8) fl Immature Gran % (Auto) 0.2 H (0.0-0.0) % Neut % (Auto) 55.4 (50.0-70.0) % Lymph % (Auto) 32.7 (18.0-42.0) % Josephine % (Auto) 5.8 (2.0-11.0) % Eos % (Auto) 5.4 (1.0-6.0) % Baso % (Auto) 0.5 (0.0-1.0) % Lymph # (Auto) 3.20 (1.10-4.50) K/mm3 Josephine # (Auto) 0.57 (0.10-0.90) K/mm3 Eos # (Auto) 0.53 H (0.02-0.50) K/mm3 Baso # (Auto) 0.05 (0.00-0.10) K/mm3 Abs Immat Gran (auto) 0.02 H (0.00-0.00) K/mm3 Absolute Neuts (auto) 5.42 (1.70-7.20) K/mm3 Absolute Nucleated RBC 0.00 (0.00-0.00) K/mm3 Nucleated RBC % 0.0 (0-0.0) % PT 10.7 (9.50-12.1) Seconds INR 1.0 Sodium 140 (136-145) mmol/L Potassium 3.4 L (3.5-5.1) mmol/L Chloride 104 (98-108) mmol/L Carbon Dioxide 25 (21-32) mmol/L Anion Gap 11 (4-12) mmol/L BUN 13 (7-18) mg/dL Creatinine 0.68 (0.55-1.02) mg/dL Estim Creat Clear Calc 83 ml/min Estimated GFR > 60 (59 - ) Glucose 122 H (70-99) mg/dL Calculated Osmolality 291 (285-295) mOsm/kg Calcium 9.4 (8.5-10.1) mg/dL Magnesium 1.9 (1.8-2.4) mg/dL Total Bilirubin 0.3 (0.00-1.00) mg/dL AST < 10 L (15-37) U/L ALT 12 L (14-59) U/L Alkaline Phosphatase 77 (46-116) U/L Troponin I 6.6 (0.00-60.4) ng/L NT-Pro-B Natriuret Pep 94 (0-125) pg/mL Total Protein 7.1 (6.4-8.2) g/dL Albumin 4.1 (3.4-5.0) g/dL Influenza A (RT-PCR) Negative (Negative) Influenza B (RT-PCR) Negative (Negative) RSV (RT-PCR) Negative (Negative) SARS-CoV-2 RNA (RT-PCR) Negative (Negative) Discharge Plan Discharge Clinical Impression: Chest pain Patient Disposition: Acute Care [facility] Condition: Serious
[2024-02-22 20:02] LABS: Basophils Absolute Auto 0.05 K/mm3 (0.00-0.10); Basophils Percent Auto 0.5 % (0.0-1.0); Eosinophils Absolute Auto 0.53 K/mm3 (0.02-0.50); Eosinophils Percent Auto 5.4 % (1.0-6.0); Hematocrit 39.9 % (35.0-49.0); Hemoglobin 13.4 g/dL (12.0-15.0); Immature Granulocyte Absolute 0.02 K/mm3 (0.00-0.00); Immature Granulocyte Percent A 0.2 % (0.0-0.0); Lymphocytes Percent Auto 32.7 % (18.0-42.0); Mean Corpuscular HGB Conc 33.6 g/dL (32-36); Mean Corpuscular Hemoglobin 30.9 pg (27.0-31.0); Mean Corpuscular Volume 91.9 fL (78.0-102.0); Mean Platelet Volume 10.4 fl (9.2-11.8); Monocytes Absolute Auto 0.57 K/mm3 (0.10-0.90); Monocytes Percent Auto 5.8 % (2.0-11.0); Neutrophils Absolute Auto 5.42 K/mm3 (1.70-7.20); Neutrophils Percent Auto 55.4 % (50.0-70.0); Platelet Count Result 242 K/mm3 (150-420); Red Blood Count 4.34 M/mm3 (4.20-5.40); Red Cell Distribution Width 12.7 % (11.6-14.4); White Blood Count 9.8 K/mm3 (4.8-10.8)
[2024-02-22] MEDS: MORPHINE SULFATE (*CRX) 4 MG/ML INJ IV PUSH (20:13)
[2024-02-22] MEDS: LORazepam INJ (*CRX) 2 MG/ML VIAL 0.5 MG IV PUSH (20:14)
[2024-02-22 20:15] LABS: Prothrombin Time 10.7 Seconds (9.50-12.1)
[2024-02-22 20:28] LABS: Alanine Aminotransferase 12 U/L (14-59); Albumin Level 4.1 g/dL (3.4-5.0); Alkaline Phosphatase 77 U/L (46-116); Anion Gap 11 mmol/L (4-12); Aspartate Amino Transferase < 10 U/L (15-37); Bilirubin,Total 0.3 mg/dL (0.00-1.00); Blood Urea Nitrogen 13 mg/dL (7-18); Calcium 9.4 mg/dL (8.5-10.1); Carbon Dioxide 25 mmol/L (21-32); Chloride 104 mmol/L (98-108); Estimated CRCL calculation 83 ml/min; Estimated Glomerular Filt Rate > 60; Glucose 122 mg/dL (70-99); Magnesium 1.9 mg/dL (1.8-2.4); NT Pro B Type Natriuretic Pept 94 pg/mL (0-125); Osmolality Calculated 291 mOsm/kg (285-295); Potassium 3.4 mmol/L (3.5-5.1); Sodium 140 mmol/L (136-145); Total Protein 7.1 g/dL (6.4-8.2); Troponin I 6.6 ng/L (0.00-60.4)
[2024-02-22 20:39] LABS: Influenza A QL RT-PCR Negative (Negative); Influenza B QL RT-PCR Negative (Negative); RSV RNA, RT-PCR Negative (Negative); SARS-CoV-2 RNA PCR Negative (Negative)
[2024-02-22] MEDS: MAG HYDROX/ALUMINUM HYD/SIMETH 30 ML, PHENobarb/HYOSCY/ATROPINE/SCOP 32.4 MG, LIDOCAINE... PO (22:01)
[2024-02-22] MEDS: NITROGLYCERIN SL 0.4 MG TABLET SUBLINGUAL (22:43)
--- NOTE | 2024-02-22 23:40 | ADMGEN ---
This patient, Sara Handley, was admitted to 2nd Floor Room 208-2. Patient/family oriented to hospital policies and general routines including ID bracelet, bed and alarms, visiting hours, pain management, procedures, bathroom and other care routines, personal items, smoking policy, room service/diet, and visiting hours. Information on how to activate the Rapid Response Team has been discussed. Patient/Family are encouraged to report perceived risks to care and to ask questions if they do not understand what they are told or what they should do.
[2024-02-23] VITALS: BP 132/94; PULSE 71; RESP 16; TEMP 36.7; O2SAT 97
[2024-02-23] MEDS: MORPHINE SULFATE (*CRX) 2 MG/ML INJ IV PUSH ×2 (00:25→15:55)
[2024-02-23] MEDS: LORazepam INJ (*CRX) 2 MG/ML VIAL 1 MG IV PUSH (00:39)
[2024-02-23] MEDS: MAG HYDROX/AL HYDROX/SIMETH 30 ML UDC PO (01:10)
[2024-02-23 03:24] LABS: Troponin I 9.1 ng/L (0.00-60.4)
[2024-02-23 04:00] VITALS: BP 144/82; PULSE 81; RESP 16; TEMP 36.8; O2SAT 98
[2024-02-23 08:00] VITALS: BP 130/90; PULSE 82; RESP 16; TEMP 36.1; O2SAT 95
[2024-02-23 10:13] LABS: Basophils Absolute Auto 0.03 K/mm3 (0.00-0.10); Basophils Percent Auto 0.4 % (0.0-1.0); Eosinophils Absolute Auto 0.47 K/mm3 (0.02-0.50); Eosinophils Percent Auto 6.7 % (1.0-6.0); Hematocrit 37.8 % (35.0-49.0); Hemoglobin 12.5 g/dL (12.0-15.0); Immature Granulocyte Absolute 0.02 K/mm3 (0.00-0.00); Immature Granulocyte Percent A 0.3 % (0.0-0.0); Lymphocytes Absolute Auto 1.66 K/mm3 (1.10-4.50); Lymphocytes Percent Auto 23.5 % (18.0-42.0); Mean Corpuscular HGB Conc 33.1 g/dL (32-36); Mean Corpuscular Hemoglobin 30.5 pg (27.0-31.0); Mean Corpuscular Volume 92.2 fL (78.0-102.0); Mean Platelet Volume 9.9 fl (9.2-11.8); Monocytes Absolute Auto 0.63 K/mm3 (0.10-0.90); Monocytes Percent Auto 8.9 % (2.0-11.0); Neutrophils Absolute Auto 4.24 K/mm3 (1.70-7.20); Neutrophils Percent Auto 60.2 % (50.0-70.0); Platelet Count Result 221 K/mm3 (150-420); Red Cell Distribution Width 12.8 % (11.6-14.4); White Blood Count 7.1 K/mm3 (4.8-10.8)
[2024-02-23 10:31] LABS: Alanine Aminotransferase 26 U/L (14-59); Albumin Level 3.6 g/dL (3.4-5.0); Alkaline Phosphatase 78 U/L (46-116); Anion Gap 8 mmol/L (4-12); Aspartate Amino Transferase 22 U/L (15-37); Bilirubin,Total 0.4 mg/dL (0.00-1.00); Blood Urea Nitrogen 11 mg/dL (7-18); Calcium 8.9 mg/dL (8.5-10.1); Carbon Dioxide 26 mmol/L (21-32); Chloride 106 mmol/L (98-108); Estimated CRCL calculation 96 ml/min; Estimated Glomerular Filt Rate > 60; Glucose 82 mg/dL (70-99); Osmolality Calculated 288 mOsm/kg (285-295); Potassium 4.3 mmol/L (3.5-5.1); Sodium 140 mmol/L (136-145)
[2024-02-23 10:31] LABS: Magnesium 2.1 mg/dL (1.8-2.4)
[2024-02-23] MEDS: ACETAMINOPHEN 500 MG TABLET 1000 MG PO (10:43)
[2024-02-23] MEDS: ASPIRIN 325 MG ENTERIC TABLET PO (10:44)
[2024-02-23] MEDS: ENOXAPARIN 40 MG/0.4 ML SYRINGE SUB-Q (10:45)
[2024-02-23] MEDS: FLUoxetine HCL 20 MG CAPSULE 40 MG PO (10:45)
[2024-02-23] MEDS: DOCUSATE SODIUM 100 MG CAPSULE PO (10:46)
--- NOTE | 2024-02-23 11:02 | PM.IMHP ---
H&P: HPI History of Present Illness Date/Time: 02/23/24 11:02 Chief Complaint: shortness a breath/dyspnea Narrative: This is a 48-year-old female significant past medical history of migraines, insomnia, vitamin-D deficiency, tobacco abuse, depression, anemia, anxiety, GERD, gastric sleeve surgery who presented to the hospital with increased shortness of breath and dyspnea. Patient states that she has been under a lot of stress since [place] and is dealing with some family issues. She noticed that she has become more short of breath just with talking and Started having right-sided chest pain that radiates to her back that does not go away with rest. She was treated for anxiety in the past however she stopped all of her medications about 8 months ago due to weight gain. She states she feels anxious all the time however even with her anxiety in the past she has never had chest pain and shortness of breath associated with it. She states she has a family history of coronary artery disease and has had a few family members with MIs and congestive heart failure. She admits to smoking 1 pack of cigarettes per day. She did receive nitroglycerin and morphine in the ED which did relieve her chest pain temporarily. She states after that dose she was able to take a deep breath for the 1st time in a while. She denies any fever, chills, nausea, vomiting, diarrhea, abdominal pain. She denies any recent sick contacts. Workup in the hospital included a chest / abdomen CTA which showed moderate gastritis, no dissection. Initial labs showed a normal white blood cell count of 9.8, potassium 3.4, magnesium 1.9, troponin negative x2, proBNP was only 94. Respiratory panel was negative for influenza a and B, RSV, COVID. EKG showed sinus rhythm with a rate of 84, QTC 435. Patient was given 4 mg IV push morphine, Ativan, Maalox, and nitroglycerin while in the ED. spoke with Dr. Jones personalized living manager at [facility] who states she will need a stress test and accepts consult with hospitalist admitting. Spoke with Dr. Celestin ( hospitalist) who accepts admission. Spoke with data warehouse administrator at [facility] for bed placement. Patient and family is agreeable to transfer. Review of Systems Review of Systems: All systems reviewed & are unremarkable except as noted in HPI and below Constitutional: Constitutional: Reports as per HPI and Reports no additional constitutional complaints Eyes: Eyes: Reports as per HPI and Reports no additional eye complaints ENT: Reports system reviewed and no additional complaints, except as documented and Reports as per HPI Cardiovascular: Cardiovascular: Reports as per HPI and Reports no additional cardiovascular complaints Respiratory: Respiratory: Reports as per HPI and Reports no additional respiratory complaints Gastrointestinal: Gastrointestinal: Reports as per HPI and Reports no additional gastrointestinal complaints Genitourinary: Genitourinary: Reports no additional female genitourinary complaints and Reports as per HPI Musculoskeletal: Musculoskeletal: Reports no additional musculoskeletal complaints and Reports as per HPI Integumentary/Breasts: Skin/Breast: Reports system reviewed and no additional complaints, except as docu and Reports as per HPI Neurologic: Reports system reviewed and no additional complaints, except as documented and Reports as per HPI Psychiatric: Psychiatric: Reports no additional psychiatric complaints and Reports as per HPI [facility] Past Medical History Medical History Thoracic back pain Migraines Vitamin D deficiency Vitamin deficiency Insomnia Screening mammogram for breast cancer Tobacco abuse Elevated BP without diagnosis of hypertension Encounter to establish care History of abdominal hernia Upper abdominal pain Major depression Anemia Muscle spasm Anxiety Allergies Cholecystectomy planned Depression GERD (gastroesophageal reflux disease) Surgical History Surgical History History of hysterectomy History of bariatric surgery Family History Family History Father Family history of lung cancer Hypertension Grandparent Cancer Hypertension Depression Diabetes mellitus Anxiety Mother Hypertension Depression Anxiety Sibling Depression Anxiety Other Cerebrovascular accident Family history of allergic disorder Family history of cardiovascular disease Social History Social History Smoking packs per day: 1 Smoking cigarettes per day: 20.0 Years smoked: 33 Smoking pack-years: 33.00 Smoking status: Current every day smoker Alcohol intake: current Drinks per week: 1 Alcohol use details: Rarely Substance use: former Substance use type: marijuana Do You Feel Safe in your Home?: Yes Lack of Transportation: No Lack of Food: Never True Current Housing: I Have Housing Concerned About Future Housing: No Difficulty Paying Gas/Electric Bills: No Difficulty Paying for Meds: No Currently Unemployed: No Education: High School Diploma/GED Difficulty w/ Childcare or Family Care: No Spiritual care concerns: No Meds Home Medications and Allergies Home Medications ?Medication ?Instructions ?Recorded ?Confirmed ?Type ergocalciferol (vitamin D2) 1,250 1,250 mcg PO WEEKLY #13 caps 07/12/22 02/22/24 Rx mcg (50,000 unit) capsule fluoxetine 40 mg capsule 40 mg PO DAILY #30 caps 07/12/22 02/22/24 Rx quetiapine 25 mg tablet (Seroquel) 25 mg PO QHS #30 tabs 07/12/22 02/22/24 Rx buspirone 5 mg tablet See Rx Instructions PO BID #180 10/03/22 02/22/24 Rx tabs cyclobenzaprine 10 mg tablet 10 mg PO TID PRN muscle spasm #30 10/09/22 02/22/24 Rx tabs esomeprazole magnesium 40 mg 40 mg PO Q24H 11/11/22 02/22/24 History capsule,delayed release Allergies Allergy/AdvReac Type Severity Reaction Status Date / Time metformin Allergy Unknown Other Verified 02/22/24 20:10 [email or web address] Allergy Unknown Other Verified 02/22/24 20:10 Vital Signs Vital Signs - 24 hr 02/22/24 19:45 02/22/24 19:45 02/22/24 19:47 Temperature Pulse Rate 88 88 Respiratory Rate 15 Blood Pressure Pulse Oximetry 100 Oxygen Delivery Room Air 02/22/24 19:48 02/22/24 20:01 02/22/24 20:04 Temperature 97.9 F Pulse Rate 86 89 94 Respiratory Rate 20 18 Blood Pressure 157/97 H 150/86 H Pulse Oximetry 100 100 98 Oxygen Delivery Room Air 02/22/24 20:16 02/22/24 20:17 02/22/24 20:30 Temperature Pulse Rate 94 98 95 Respiratory Rate 18 20 Blood Pressure 140/79 Pulse Oximetry 98 97 98 Oxygen Delivery 02/22/24 20:31 02/22/24 21:26 02/22/24 21:30 Temperature Pulse Rate 89 80 81 Respiratory Rate 21 H 15 16 Blood Pressure 136/75 Pulse Oximetry 98 97 97 Oxygen Delivery 02/22/24 21:31 02/22/24 21:45 02/22/24 21:46 Temperature Pulse Rate 80 80 75 Respiratory Rate 16 20 19 Blood Pressure 130/72 125/79 Pulse Oximetry 99 97 99 Oxygen Delivery 02/22/24 22:00 02/22/24 22:01 02/22/24 22:15 Temperature Pulse Rate 80 71 70 Respiratory Rate 19 17 16 Blood Pressure 127/85 Pulse Oximetry 99 99 98 Oxygen Delivery 02/22/24 22:16 02/22/24 22:30 02/22/24 22:31 Temperature Pulse Rate 69 70 72 Respiratory Rate 14 21 H 16 Blood Pressure 128/83 134/87 Pulse Oximetry 99 99 99 Oxygen Delivery 02/22/24 22:45 02/22/24 22:46 02/22/24 23:00 Temperature Pulse Rate 87 110 H 66 Respiratory Rate 18 22 H 15 Blood Pressure 138/93 H Pulse Oximetry 99 98 99 Oxygen Delivery 02/22/24 23:01 02/22/24 23:03 02/22/24 23:15 Temperature Pulse Rate 63 71 70 Respiratory Rate 15 16 15 Blood Pressure 129/85 Pulse Oximetry 99 97 97 Oxygen Delivery Room Air 02/22/24 23:16 02/22/24 23:24 02/23/24 00:00 Temperature 98.1 F Pulse Rate 73 84 71 Respiratory Rate 13 16 Blood Pressure 113/79 132/94 H Pulse Oximetry 98 97 Oxygen Delivery Room Air 02/23/24 04:00 02/23/24 08:00 Temperature 98.2 F 97 F L Pulse Rate 81 82 Respiratory Rate 16 16 Blood Pressure 144/82 H 130/90 Pulse Oximetry 98 95 Oxygen Delivery Room Air Room Air Exam Narrative: General: In no acute distress, well nourished Head: atraumatic, no encephalopathy Eyes: EOMI, PERRLA, sclera clear ENT: moist mucous membranes, nasal passages clear Neck: supple, no JVD, no adenopathy, trachea midline Cardiac: Normal S1 and S2. RRR, No murmur, gallops or friction rubs, peripheral pulses intact. Reports right sided chest pain that radiates to her back even at rest Respiratory: Lungs clear to auscultation, no adventitious lung sounds, currently on room air. SOB with rest and exertion. Gastrointestinal: soft, non-distended, non-tender, normoactive bowel sounds. : voiding without difficulty. Extremities: moves all extremities well, no edema, good ROM, strength 5/5 Skin: clean, dry, intact. No wounds or lesions. Neuro: Alert and oriented x4, cranial nerves intact, no neuro deficits. Psych: normal mood, normal affect, interactive H&P: Results Labs Labs: Short CBC 02/22/24 02/23/24 Range/Units 19:55 10:05 WBC 9.8 7.1 (4.8-10.8) K/mm3 Hgb 13.4 12.5 (12.0-15.0) g/dL Hct 39.9 37.8 (35.0-49.0) % Plt Count 242 221 (150-420) K/mm3 BMP 02/22/24 02/23/24 19:55 09:52 Sodium 140 140 Potassium 3.4 L 4.3 Chloride 104 106 Carbon Dioxide 25 26 BUN 13 11 Creatinine 0.68 0.58 Glucose 122 H 82 Calcium 9.4 8.9 Cardiac Enzymes 02/22/24 02/23/24 Range/Units 19:55 03:00 Troponin I 6.6 9.1 (0.00-60.4) ng/L Liver Function 02/22/24 02/23/24 Range/Units 19:55 09:52 Total Bilirubin 0.3 0.4 (0.00-1.00) mg/dL AST < 10 L 22 (15-37) U/L ALT 12 L 26 (14-59) U/L Alkaline Phosphatase 77 78 (46-116) U/L Albumin 4.1 3.6 (3.4-5.0) g/dL Imaging chest/abdomen CTA: Radiologist's impression: EXAMINATION: CTA chest abdomen DATE: 02/22/2024 21:23 INDICATION: chest pain radiating to back, suspected dissection . TECHNIQUE: Computed tomography (CT) of the chest, abdomen, and pelvis was performed with 100 mL Omnipaque-350 intravenous contrast in the arterial phase. Automated exposure control and iterative reconstruction technique were employed. The dose-length product was 653.26 mGy-cm. COMPARISON: CT abdomen pelvis 02/22/2021 FINDINGS: CHEST: Thoracic aorta: No significant dilation. No dissection. Lung parenchyma and airways: Lungs and airways are clear. Thoracic inlet, axillae and chest wall: No thyroid or soft tissue mass. No axillary lymphadenopathy. Mediastinum: No mass or lymphadenopathy. Heart and pericardium: Normal heart size. No pericardial effusion. Coronary artery calcifications: . Pleura: No effusion or mass. Thoracic bones: No acute osseous finding in the chest. ABDOMEN/PELVIS: Liver: Normal. Biliary/Gallbladder: Gallbladder is absent. No bile duct dilation. Pancreas: No mass or duct dilation. Spleen: Normal. Adrenals:No mass. Kidneys: No suspicious mass, obstructing stone, or hydronephrosis. GI tract: Status post gastric sleeve surgery. Moderate gastric wall edema. No small or large bowel dilation. Normal appendix. Mesentery/Peritoneum: No ascites, mass, or free air. Retroperitoneum: No mass Pelvis: Normal urinary bladder. Absent uterus. Bilateral ovaries not confidently identified. Soft Tissues: Soft tissues and body wall unremarkable. Abdominopelvic bones: No acute osseous finding in the abdomen/pelvis. IMPRESSION: Moderate gastritis. Reviewed, dictated and finalized at location [facility]. E[facility] SINGER Assessment and Plan Assessment and plan (1) Unstable angina: Code(s): I20.0 - Unstable angina Status: Acute Assessment and Plan: reporting chest associated shortness that is not relieved with rest she states she felt better after she was given the morphine and the nitroglycerin in the ED. She states that the pain in her chest was relieved and she was able to breathe better however today she reporting shortness a breath and chest pain that is described as burning in nature and radiates to her mid back. CTA of the chest and abdomen was negative for dissection or PE and only showed acute gastritis EKG showing sinus rhythm with a rate of 84, QTC 433 will continue morphine and nitroglycerin p.r.n. for chest pain spoke with Dr. Jones at [facility] who is a personalized living manager and agrees to consult with hospitalist admitting and currently is recommending stress testing plan for transfer to tertiary hospital for cardiac services (2) Dyspnea: Code(s): R06.00 - Dyspnea, unspecified Status: Acute Assessment and Plan: Differential including anxiety/panic attack versus stable angina versus unstable angina Was given Ativan, Morphine, and Nitroglycerin while in the ER (3) Anxiety: Code(s): F41.9 - Anxiety disorder, unspecified Status: Acute Assessment and Plan: Continue Buspar (4) Migraines: Code(s): G43.909 - Migraine, unspecified, not intractable, without status migrainosus Status: Acute Assessment and Plan: patient given 1 g of Tylenol, 325 mg of aspirin and is drinking a caffeinated soda will add Excedrin migraine once this is available through pharmacy (5) Major depression: Code(s): F32.9 - Major depressive disorder, single episode, unspecified Status: Acute Assessment and Plan: Continue prozac (6) Elevated BP without diagnosis of hypertension: Code(s): R03.0 - Elevated blood-pressure reading, without diagnosis of hypertension Status: Acute Assessment and Plan: blood pressures ranging 130/90 to 144/82 not on any current home meds for blood pressure Quality VTE Prophylaxis VTE prophylaxis: pharmacologic ordered Hospitalist MIPS Advance Care Plan I have confirmed that the patient's Advanced Care Plan is present, code status is documented, or surrogate decision maker is listed in patient medical record.: Yes Medication Reconciliation I have utilized all available resources to obtain, update and review the patients current medications (includes all prescriptions, OTC, herbals, cannabis, and nutritional supplements).: Yes
[2024-02-23 11:55] VITALS: BP 149/98; PULSE 66; RESP 16; TEMP 36.2; O2SAT 98
--- NOTE | 2024-02-23 13:20 | PM.TDS ---
Transfer Discharge Sum: Prov Provider Date of admission: 02/22/24 23:02 Primary care physician: Darcie Kwan NP Admitting clinician: Gorge Guerra MD Attending physician on discharge: Luis Guerra Discharging clinician: Sita Thornton Anticipated date of transfer: 02/23/24 Receiving physician/facility: [facility] with Dr. Celestin accepting Dr. Jones Reroller Hand agrees to consult DS: Admitting Diagnosis Discharge Date 02/23/24 Admitting Diagnosis unstable angina dyspnea anxiety migraines major depression elevated blood pressure without diagnosis of hypertension Transfer Discharge Sum: Med Medications Active and Home Medications: Home Medications ergocalciferol (vitamin D2) 1,250 mcg (50,000 unit) capsule 1,250 mcg PO WEEKLY #13 caps 07/12/22 [Rx Confirmed 02/22/24] fluoxetine 40 mg capsule 40 mg PO DAILY #30 caps 07/12/22 [Rx Confirmed 02/22/24] quetiapine 25 mg tablet (Seroquel) 25 mg PO QHS #30 tabs 07/12/22 [Rx Confirmed 02/22/24] buspirone 5 mg tablet See Rx Instructions PO BID #180 tabs 10/03/22 [Rx Confirmed 02/22/24] cyclobenzaprine 10 mg tablet 10 mg PO TID PRN muscle spasm #30 tabs 10/09/22 [Rx Confirmed 02/22/24] esomeprazole magnesium 40 mg capsule,delayed release 40 mg PO Q24H 11/11/22 [History Confirmed 02/22/24] Active Medications Acetaminophen (Acetaminophen 325 Mg Tablet) 650 mg PO Q4H PRN PRN Reason: Mild Pain (1-3) or Fever Al Hydrox/Mg Hydrox/Simethicone (Mag Hydrox/Al Hydrox/Simeth 30 Ml Udc) 30 ml PO QID PRN PRN Reason: Dyspepsia Last Admin: 02/23/24 01:10 Dose: 30 ml Buspirone HCl (Buspirone Hcl 5 Mg Tablet) 5 mg PO Q12HR STEPHON Cyclobenzaprine HCl (Cyclobenzaprine Hcl 10 Mg Tablet) 10 mg PO TID PRN PRN Reason: muscle spasm Docusate Sodium (Docusate Sodium 100 Mg Capsule) 100 mg PO BID STEPHON Last Admin: 02/23/24 10:46 Dose: 100 mg Enoxaparin Sodium (Enoxaparin 40 Mg/0.4 Ml Syringe) 40 mg SUB-Q DAILY [facility] Last Admin: 02/23/24 10:45 Dose: 40 mg Fluoxetine HCl (Fluoxetine Hcl 20 Mg Capsule) 40 mg PO DAILY [facility] Last Admin: 02/23/24 10:45 Dose: 40 mg Morphine Sulfate (Morphine Sulfate (*Crx) 2 Mg/Ml Inj) 2 mg IV PUSH Q4H PRN PRN Reason: Pain Rated 7-10 Last Admin: 02/23/24 00:25 Dose: 2 mg Naloxone HCl (Naloxone Hcl 0.4 Mg/Ml Vial) 0.1 mg IV PUSH Q2M PRN PRN Reason: Opiate Reversal Nicotine (Nicotine (*Pbkc) 21 Mg Patch) 1 patch TRANSDERM DAILY [facility] Nitroglycerin (Nitroglycerin Sl 0.4 Mg Tablet) 0.4 mg SUBLINGUAL Q5MIN PRN PRN Reason: Chest Pain Nonformulary Drug ( Excedrin Migraine: Apap 250mg/Asa 250mg /Caffeine 65mg Per Cap) 1 each PO BID PRN PRN Reason: Headache Stop: 03/24/24 16:59 Ondansetron HCl (Ondansetron Inj 4 Mg/2 Ml Vial) 4 mg IV PUSH Q6H PRN PRN Reason: Nausea And Vomiting Quetiapine Fumarate (Quetiapine Fumarate 25 Mg Tablet) 25 mg PO QHS [facility] Transfer Discharge Sum: Hosp Hospital Course Hospital course: Sara Handley is a 48 year old female with significant past medical history of migraines, insomnia, vitamin-D deficiency, tobacco abuse, depression, anemia, anxiety, GERD, gastric sleeve surgery who presented to the hospital with increased shortness of breath and dyspnea. Patient states that she has been under a lot of stress since [place] and is dealing with some family issues. She noticed that she has become more short of breath just with talking and Started having right-sided chest pain that radiates to her back that does not go away with rest. She was treated for anxiety in the past however she stopped all of her medications about 8 months ago due to weight gain. She states she feels anxious all the time however even with her anxiety in the past she has never had chest pain and shortness of breath associated with it. She states she has a family history of coronary artery disease and has had a few family members with MIs and congestive heart failure. She admits to smoking 1 pack of cigarettes per day. She did receive nitroglycerin and morphine in the ED which did relieve her chest pain temporarily. She states after that dose she was able to take a deep breath for the 1st time in a while. She denies any fever, chills, nausea, vomiting, diarrhea, abdominal pain. She denies any recent sick contacts. Workup in the hospital included a chest / abdomen CTA which showed moderate gastritis, no dissection. Initial labs showed a normal white blood cell count of 9.8, potassium 3.4, magnesium 1.9, troponin negative x2, proBNP was only 94. Respiratory panel was negative for influenza a and B, RSV, COVID. EKG showed sinus rhythm with a rate of 84, QTC 435. Patient was given 4 mg IV push morphine, Ativan, Maalox, and nitroglycerin while in the ED. spoke with Dr. Jones adaptive physical education teacher at [facility] who states she will need a stress test and accepts consult with hospitalist admitting. Spoke with Dr. Celestin ( hospitalist) who accepts admission. Spoke with switch house operator at [facility] for bed placement. Patient and family is agreeable to transfer. final diagnosis: unstable angina, anxiety, hypertension Time Spent with Patient Time attestation: Total time spent providing and/or coordinating transfer services: Exam Narrative: General: In no ac [place] distress, well nourished Head: a traumatic, no ence phalopathy Eyes: E NIKIA, PERRLA, scler a clear ENT: moist mucous membranes, nasal passages cl ear Neck: supple, no JVD, no adenopa thy, trachea midli ne Cardiac: Normal S1 and S2. RRR, No murmur, gallops or friction rubs, peripheral pulses intact. Reports r ight sided chest p ain that radiates to her back even a t rest Respiratory : Lungs clear to a uscultation, no ad ventitious lung so unds, currently on room air. SOB wit h rest and exertio n. Gastrointestin al: soft, non-dist ended, non-tender, normoactive bowel sounds. : voidi ng without difficu lty. Extremities: moves all extremit ies well, no edema , good ROM, streng 06/17 Skin: clean , dry, intact. No wounds or lesions. Neuro: Alert and oriented x4, cran ial nerves intact, no neuro deficits . Psych: normal m ood, normal affect , interactive DS: Data Data Completed and Pending Completed studies during hospitalization: abdomen chest CTA Pending studies at discharge: none Labs on day of discharge: Labs from last 24 hours 02/23/24 02/23/24 02/23/24 10:06 10:05 09:52 WBC 7.1 RBC 4.10 L Hgb 12.5 Hct 37.8 MCV 92.2 MCH 30.5 MCHC 33.1 RDW 12.8 Plt Count 221 MPV 9.9 Immature Gran % (Auto) 0.3 H Neut % (Auto) 60.2 Lymph % (Auto) 23.5 [place] % (Auto) 8.9 Eos % (Auto) 6.7 H Baso % (Auto) 0.4 Lymph # (Auto) 1.66 [place] # (Auto) 0.63 Eos # (Auto) 0.47 Baso # (Auto) 0.03 Abs Immat Gran (auto) 0.02 H Absolute Neuts (auto) 4.24 Absolute Nucleated RBC 0.00 Nucleated RBC % 0.0 PT INR Sodium 140 Potassium 4.3 Chloride 106 Carbon Dioxide 26 Anion Gap 8 BUN 11 Creatinine 0.58 Estim Creat Clear Calc 96 Estimated GFR > 60 Glucose 82 Calculated Osmolality 288 Calcium 8.9 Magnesium 2.1 Total Bilirubin 0.4 AST 22 ALT 26 Alkaline Phosphatase 78 Troponin I NT-Pro-B Natriuret Pep Total Protein 6.0 L Albumin 3.6 Influenza A (RT-PCR) Influenza B (RT-PCR) RSV (RT-PCR) SARS-CoV-2 RNA (RT-PCR) 02/23/24 02/22/24 03:00 19:55 WBC 9.8 RBC 4.34 Hgb 13.4 Hct 39.9 MCV 91.9 MCH 30.9 MCHC 33.6 RDW 12.7 Plt Count 242 MPV 10.4 Immature Gran % (Auto) 0.2 H Neut % (Auto) 55.4 Lymph % (Auto) 32.7 [place] % (Auto) 5.8 Eos % (Auto) 5.4 Baso % (Auto) 0.5 Lymph # (Auto) 3.20 [place] # (Auto) 0.57 Eos # (Auto) 0.53 H Baso # (Auto) 0.05 Abs Immat Gran (auto) 0.02 H Absolute Neuts (auto) 5.42 Absolute Nucleated RBC 0.00 Nucleated RBC % 0.0 PT 10.7 INR 1.0 Sodium 140 Potassium 3.4 L Chloride 104 Carbon Dioxide 25 Anion Gap 11 BUN 13 Creatinine 0.68 Estim Creat Clear Calc 83 Estimated GFR > 60 Glucose 122 H Calculated Osmolality 291 Calcium 9.4 Magnesium 1.9 Total Bilirubin 0.3 AST < 10 L ALT 12 L Alkaline Phosphatase 77 Troponin I 9.1 6.6 NT-Pro-B Natriuret Pep 94 Total Protein 7.1 Albumin 4.1 Influenza A (RT-PCR) Negative Influenza B (RT-PCR) Negative RSV (RT-PCR) Negative SARS-CoV-2 RNA (RT-PCR) Negative Procedures/Treatments: none Imaging Radiologist's impression: EXAMINATION: CTA chest abdomen DATE: 02/22/2024 21:23 INDICATION: chest pain radiating to back, suspected dissection . TECHNIQUE: Computed tomography (CT) of the chest, abdomen, and pelvis was performed with 100 mL Omnipaque-350 intravenous contrast in the arterial phase. Automated exposure control and iterative reconstruction technique were employed. The dose-length product was 653.26 mGy-cm. COMPARISON: CT abdomen pelvis 02/22/2021 FINDINGS: CHEST: Thoracic aorta: No significant dilation. No dissection. Lung parenchyma and airways: Lungs and airways are clear. Thoracic inlet, axillae and chest wall: No thyroid or soft tissue mass. No axillary lymphadenopathy. Mediastinum: No mass or lymphadenopathy. Heart and pericardium: Normal heart size. No pericardial effusion. Coronary artery calcifications: . Pleura: No effusion or mass. Thoracic bones: No acute osseous finding in the chest. ABDOMEN/PELVIS: Liver: Normal. Biliary/Gallbladder: Gallbladder is absent. No bile duct dilation. Pancreas: No mass or duct dilation. Spleen: Normal. Adrenals:No mass. Kidneys: No suspicious mass, obstructing stone, or hydronephrosis. GI tract: Status post gastric sleeve surgery. Moderate gastric wall edema. No small or large bowel dilation. Normal appendix. Mesentery/Peritoneum: No ascites, mass, or free air. Retroperitoneum: No mass Pelvis: Normal urinary bladder. Absent uterus. Bilateral ovaries not confidently identified. Soft Tissues: Soft tissues and body wall unremarkable. Abdominopelvic bones: No acute osseous finding in the abdomen/pelvis. IMPRESSION: Moderate gastritis. Reviewed, dictated and finalized at location [facility]. ING AND PRINTING MACHINE OPERATOR
[2024-02-23] MEDS: busPIRone HCL 5 MG TABLET PO (13:25)
[2024-02-23 13:38] LABS: Cholesterol 204 mg/dL (0-200); HDL Direct 53 mg/dL (40-60); LDL Cholesterol Calculated 131 mg/dL (<130); Triglycerides 98 mg/dL (0-150)
--- NOTE | 2024-02-23 13:50 | PC.NURSE ---
housekeeping room inspector from [employer] has called with room assignment and number to call for report
[2024-02-23] MEDS: NICOTINE (*PBKC) 21 MG PATCH 1 PATCH TRANSDERM (15:57)
[2024-02-23] MEDS: ASPIRIN 81 MG ENTERIC TABLET PO (15:57)
[2024-02-23 16:00] VITALS: BP 148/88; PULSE 68; RESP 18; TEMP 36.1; O2SAT 96
== END 2024-02-23 16:45 | disposition short-term general hospital (02) ==
LOC: CHSED 23:10 → CHS2ND 02-23 07:18
PROVIDERS: Admitting Provider Internal Medicine; Emergency Provider Family Medicine; PCP Nurse Practitioner Family; Visit Provider Nurse Practitioner Acute Care
DX: I20.0 Unstable angina (principal); F41.9 Anxiety disorder, unspecified; I10 Essential (primary) hypertension; R06.00 Dyspnea, unspecified; G43.909 Migraine, unspecified, not intractable, without status migrainosus; F32.9 Major depressive disorder, single episode, unspecified; R03.0 Elevated blood-pressure reading, without diagnosis of hypertension; F17.210 Nicotine dependence, cigarettes, uncomplicated; G47.00 Insomnia, unspecified; K21.9 Gastro-esophageal reflux disease without esophagitis; E55.9 Vitamin D deficiency, unspecified; D64.9 Anemia, unspecified; Z79.899 Other long term (current) drug therapy; Z98.84 Bariatric surgery status; Z82.49 Family history of ischemic heart disease and other diseases of the circulatory system
CPT/HCPCS: 36415; 71275; 74175; 80053; 80061; 83735; 83880; 84484; 85025; 85610; 87637; 93005; 96374; 96375; 96376; 99285; A9270; J1650; J2060; J2270; Q9967

== ENCOUNTER 2024-02-23 17:21 | Inpatient (IN) | payer OTHER, SELFPAY ==
--- NOTE | ~2024-02-23 | CT_ITS ---
EXAMINATION: CTA chest PE protocol DATE: 02/24/2024 11:14 INDICATION: Chest pain radiating to back. Rule out pulmonary embolus. TECHNIQUE: Computed tomography angiography (CTA) of the chest was performed with 100 mL Omnipaque-350 intravenous contrast timed to evaluate the pulmonary arteries. Coronal maximum intensity projection 3D-reconstructions were created by the technologist. Automated exposure control and iterative reconst ruction technique were employed. Exam dose: 312.63 mGy-cm total exam DLP. COMPARISON: 02/22/2024 CTA chest abdomen FINDINGS: There is diagnostic contrast enhancement of the pulmonary arteries and no evidence of pulmo nary embolism. No thoracic aortic aneurysm or dissection is evident. Normal heart size. No hilar or mediastinal mass lesion or lymphadenopathy. Mild discoid atelectasis or scarring in the dependent lower lobes, right greater than left. The lungs are otherwise clear. Small sliding hiatal hernia. Status post gastric bypass. Status post cholecystectomy. Normal morphology of the adrenal glands. Included skeletal structures are unremarkable; no suspicious osteolytic or osteoblastic lesions. IMPRESSION: No evidence of pulmonary embolism Reviewed, dictated and finalized at [facility]. Reviewed, dictated and finalized at [facility]. OYEE RELATIONS MANAGER
--- NOTE | ~2024-02-23 | XR_ITS ---
XR chest 1V portable DATE: 02/24/2024 12:28 INDICATION: Shortness of breath TECHNIQUE: Portable upright AP chest on 02/24/20244 hours COMPARISON: 02/24/2024 CTA chest FINDINGS: Normal heart size. No hilar or mediastinal enlargement. Mild discoid atelectasis in the rig ht lung base. No pulmonary infiltrate or consolidation, pleural effusion or pulmonary vascular conges tion or pneumothorax is detected otherwise. Osteopenia. IMPRESSION: Mild discoid atelectasis at right lung base; otherwise no active cardiopulmonary disease Reviewed, dictated and finalized at [facility]. EATION TECHNICIAN IMPRESSION: Mild discoid atelectasis at right lung base; otherwise no active ca rdiopulmonary disease
--- NOTE | ~2024-02-23 | US_ITS ---
US venous doppler [facility] DATE: 02/24/2024 11:45 INDICATION: Rule out DVT TECHNIQUE: Real-time and color flow imaging and Doppler analysis of the veins of both lower extremiti es COMPARISON: None FINDINGS: There is spontaneous and phasic flow and normal augmentation and color flow signal and norm al compression of the deep veins of both lower extremities. The greater saphenous veins are patent. IMPRESSION: No evidence of deep venous thrombosis of the lower extremities Reviewed, dictated and finalized at [facility]. Reviewed, dictated and finalized at [facility]. HOOKER HAND
--- NOTE | 2024-02-23 17:21 | ADMGEN ---
This patient, Sara Handley, was admitted to Medical Room 341-01. Patient/family oriented to hospital policies and general routines including ID bracelet, bed and alarms, visiting hours, pain management, procedures, bathroom and other care routines, personal items, smoking policy, room service/diet, and visiting hours. Information on how to activate the Rapid Response Team has been discussed. Patient/Family are encouraged to report perceived risks to care and to ask questions if they do not understand what they are told or what they should do.
[2024-02-23 17:37] VITALS: BMI 26.6
--- NOTE | 2024-02-23 19:04 | PM.IMHP ---
H&P: HPI History of Present Illness Date/Time: 02/23/24 19:04 Chief Complaint: Unstable Angina Anxiety Narrative: This is a 48-year-old female significant past medical history of migraines, insomnia, vitamin-D deficiency, tobacco abuse, depression, anemia, anxiety, GERD, gastric sleeve surgery who presented to the hospital with increased shortness of breath and dyspnea. Patient originally presented to [facility] and was an inpatient transfer to [facility] for cardiac work up. Patient states that she has been under a lot of stress since Ran and is dealing with some family issues. She noticed that she has become more short of breath just with talking and Started having right-sided chest pain that radiates to her back that does not go away with rest. She was treated for anxiety in the past however she stopped all of her medications about 8 months ago due to weight gain. She states she feels anxious all the time however even with her anxiety in the past she has never had chest pain and shortness of breath associated with it. She states she has a family history of coronary artery disease and has had a few family members with MIs and congestive heart failure. She admits to smoking 1 pack of cigarettes per day. She did receive nitroglycerin and morphine in the ED which did relieve her chest pain. She states after that dose she was able to take a deep breath for the 1st time in a while. She denies any fever, chills, nausea, vomiting, diarrhea, abdominal pain. She denies any recent sick contacts. Workup in the hospital included a chest / abdomen CTA which showed moderate gastritis, no dissection. Initial labs showed a normal white blood cell count of 9.8, potassium 3.4, magnesium 1.9, troponin negative x2, proBNP was only 94. Respiratory panel was negative for influenza A and B, RSV, COVID. EKG showed sinus rhythm with a rate of 84, QTC 435, no ST elevation. Patient was given 4 mg IV push morphine, Ativan, Maalox, and nitroglycerin while in the ED at [facility]. Cardiology consulted. Review of Systems Review of Systems: All systems reviewed & are unremarkable except as noted in HPI and below Constitutional: Constitutional: Reports as per HPI and Reports no additional constitutional complaints Eyes: Eyes: Reports as per HPI and Reports no additional eye complaints ENT: Reports system reviewed and no additional complaints, except as documented and Reports as per HPI Cardiovascular: Cardiovascular: Reports as per HPI and Reports no additional cardiovascular complaints Respiratory: Respiratory: Reports as per HPI and Reports no additional respiratory complaints Gastrointestinal: Gastrointestinal: Reports as per HPI and Reports no additional gastrointestinal complaints Genitourinary: Genitourinary: Reports no additional female genitourinary complaints and Reports as per HPI Musculoskeletal: Musculoskeletal: Reports no additional musculoskeletal complaints and Reports as per HPI Integumentary/Breasts: Skin/Breast: Reports system reviewed and no additional complaints, except as docu and Reports as per HPI Neurologic: Reports system reviewed and no additional complaints, except as documented and Reports as per HPI Psychiatric: Psychiatric: Reports no additional psychiatric complaints and Reports as per HPI [facility] Past Medical History Medical History Thoracic back pain Migraines Vitamin D deficiency Vitamin deficiency Insomnia Screening mammogram for breast cancer Tobacco abuse Elevated BP without diagnosis of hypertension Encounter to establish care History of abdominal hernia Upper abdominal pain Major depression Anemia Muscle spasm Anxiety Allergies Cholecystectomy planned Depression GERD (gastroesophageal reflux disease) Surgical History Surgical History History of hysterectomy History of bariatric surgery Family History Family History Father Family history of lung cancer Hypertension Heart disease Grandparent Cancer Hypertension Depression Diabetes mellitus Anxiety Acute myocardial infarction Heart disease Mother Hypertension Depression Anxiety Sibling Depression Anxiety Other Cerebrovascular accident Family history of allergic disorder Family history of cardiovascular disease Social History Social History Smoking packs per day: 1 Smoking cigarettes per day: 20.0 Years smoked: 33 Smoking pack-years: 33.00 Smoking status: Current every day smoker Tobacco type: cigarettes Alcohol intake: current Drinks per week: 1 Alcohol use details: Rarely Substance use: former Substance use type: marijuana Do You Feel Safe in your Home?: Yes Lack of Transportation: No Lack of Food: Never True Current Housing: I Have Housing Concerned About Future Housing: No Difficulty Paying Gas/Electric Bills: No Difficulty Paying for Meds: No Currently Unemployed: No Education: High School Diploma/GED Difficulty w/ Childcare or Family Care: No Spiritual care concerns: No Meds Home Medications and Allergies Home Medications ?Medication ?Instructions ?Recorded ?Confirmed ?Type ergocalciferol (vitamin D2) 1,250 1,250 mcg PO WEEKLY #13 caps 07/12/22 02/23/24 Rx mcg (50,000 unit) capsule fluoxetine 40 mg capsule 40 mg PO DAILY #30 caps 07/12/22 02/23/24 Rx quetiapine 25 mg tablet (Seroquel) 25 mg PO QHS #30 tabs 07/12/22 02/23/24 Rx buspirone 5 mg tablet See Rx Instructions PO BID #180 10/03/22 02/23/24 Rx tabs cyclobenzaprine 10 mg tablet 10 mg PO TID PRN muscle spasm #30 10/09/22 02/23/24 Rx tabs esomeprazole magnesium 40 mg 40 mg PO Q24H 11/11/22 02/23/24 History capsule,delayed release aspirin 81 mg tablet,delayed 81 mg PO QAM #1 tablet 02/23/24 02/23/24 Rx release nicotine 21 mg/24 hr daily 1 patch transdermal DAILY #1 ea 02/23/24 02/23/24 Rx transdermal patch (Nicoderm CQ) nitroglycerin 0.4 mg sublingual 0.4 mg sublingual Q5MIN PRN Chest 02/23/24 02/23/24 Rx tablet (Nitrostat) Pain #1 tablet Allergies Allergy/AdvReac Type Severity Reaction Status Date / Time metformin Allergy Unknown Other Verified 02/22/24 20:10 [email or web address] Allergy Unknown Other Verified 02/22/24 20:10 Exam Narrative: General: In no ac [place] distress, well nourished Head: a traumatic, no ence phalopathy Eyes: E NIKIA, PERRLA, scler a clear ENT: moist mucous membranes, nasal passages cl ear Neck: supple, no JVD, no adenopa thy, trachea midli ne Cardiac: Normal S1 and S2. RRR, No murmur, gallops or friction rubs, peripheral pulses intact. Reports r ight sided chest p ain that radiates to her back even a t rest Respiratory : Lungs clear to a uscultation, no ad ventitious lung so unds, currently on room air. SOB wit h rest and exertio n. Gastrointestin al: soft, non-dist ended, non-tender, normoactive bowel sounds. : voidi ng without difficu lty. Extremities: moves all extremit ies well, no edema , good ROM, streng th 06/17 Skin: clean , dry, intact. No wounds or lesions. Neuro: Alert and oriented x4, cran ial nerves intact, no neuro deficits . Psych: normal m ood, normal affect , interactive Assessment and Plan Assessment and plan (1) Unstable angina: Code(s): I20.0 - Unstable angina Status: Acute Assessment and Plan: reporting chest associated shortness that is not relieved with rest she states she felt better after she was given the morphine and the nitroglycerin in the ED. She states that the pain in her chest was relieved and she was able to breathe better however today she reporting shortness a breath and chest pain that is described as burning in nature and radiates to her mid back. CTA of the chest and abdomen was negative for dissection or PE and only showed acute gastritis EKG showing sinus rhythm with a rate of 84, QTC 433--no ST elevation Troponin negative x2 will continue morphine and nitroglycerin p.r.n. for chest pain Cardiology consulted Stress testing ordered Echo ordered Heart healthy diet ordered Lipid panel showing total cholesterol 204, LDL 131, HDL 53 (2) Dyspnea: Code(s): R06.00 - Dyspnea, unspecified Status: Acute Assessment and Plan: Differential including anxiety/panic attack versus stable angina versus unstable angina Was given Ativan, Morphine, and Nitroglycerin while in the ER (3) Migraines: Code(s): G43.909 - Migraine, unspecified, not intractable, without status migrainosus Status: Acute Assessment and Plan: patient given 1 g of Tylenol, 325 mg of aspirin and is drinking a caffeinated soda Excedrin migraine ordered (4) GERD (gastroesophageal reflux disease): Code(s): K21.9 - Gastro-esophageal reflux disease without esophagitis Status: Acute Assessment and Plan: Will start protonix (5) Elevated BP without diagnosis of hypertension: Code(s): R03.0 - Elevated blood-pressure reading, without diagnosis of hypertension Status: Acute Assessment and Plan: blood pressures ranging 130/90 to 144/82 not on any current home meds for blood pressure (6) Anxiety: Code(s): F41.9 - Anxiety disorder, unspecified Status: Acute Assessment and Plan: Continue Buspar Xanax PRN (7) Major depression: Code(s): F32.9 - Major depressive disorder, single episode, unspecified Status: Acute Assessment and Plan: Continue Prozac Quality VTE Prophylaxis VTE prophylaxis: pharmacologic ordered Hospitalist [facility] Advance Care Plan I have confirmed that the patient's Advanced Care Plan is present, code status is documented, or surrogate decision maker is listed in patient medical record.: Yes Medication Reconciliation I have utilized all available resources to obtain, update and review the patients current medications (includes all prescriptions, OTC, herbals, cannabis, and nutritional supplements).: Yes
[2024-02-23 19:40] LABS: Troponin I < 0.012 ng/mL (0.000-0.034)
[2024-02-23 20:00] VITALS: PULSE 69
--- NOTE | 2024-02-23 20:31 | P.HP_ITS ---
H&P: HPI History of Present Illness Date/Time: 02/23/24 20:31 [facility] Past Medical History Medical History Thoracic back pain Migraines Vitamin D deficiency Vitamin deficiency Insomnia Screening mammogram for breast cancer Tobacco abuse Elevated BP without diagnosis of hypertension Encounter to establish care History of abdominal hernia Upper abdominal pain Major depression Anemia Muscle spasm Anxiety Allergies Cholecystectomy planned Depression GERD (gastroesophageal reflux disease) Surgical History Surgical History History of hysterectomy History of bariatric surgery Family History Family History Father Family history of lung cancer Hypertension Heart disease Grandparent Cancer Hypertension Depression Diabetes mellitus Anxiety Acute myocardial infarction Heart disease Mother Hypertension Depression Anxiety Sibling Depression Anxiety Other Cerebrovascular accident Family history of allergic disorder Family history of cardiovascular disease Social History Social History Smoking packs per day: 1 Smoking cigarettes per day: 20.0 Years smoked: 33 Smoking pack-years: 33.00 Smoking status: Current every day smoker Tobacco type: cigarettes Alcohol intake: current Drinks per week: 1 Alcohol use details: Rarely Substance use: former Substance use type: marijuana Do You Feel Safe in your Home?: Yes Lack of Transportation: No Lack of Food: Never True Current Housing: I Have Housing Concerned About Future Housing: No Difficulty Paying Gas/Electric Bills: No Difficulty Paying for Meds: No Currently Unemployed: No Education: High School Diploma/GED Difficulty w/ Childcare or Family Care: No Spiritual care concerns: No Meds Home Medications and Allergies Home Medications ?Medication ?Instructions ?Recorded ?Confirmed ?Type ergocalciferol (vitamin D2) 1,250 1,250 mcg PO WEEKLY #13 caps 07/12/22 02/23/24 Rx mcg (50,000 unit) capsule fluoxetine 40 mg capsule 40 mg PO DAILY #30 caps 07/12/22 02/23/24 Rx quetiapine 25 mg tablet (Seroquel) 25 mg PO QHS #30 tabs 07/12/22 02/23/24 Rx buspirone 5 mg tablet See Rx Instructions PO BID #180 10/03/22 02/23/24 Rx tabs cyclobenzaprine 10 mg tablet 10 mg PO TID PRN muscle spasm #30 10/09/22 02/23/24 Rx tabs esomeprazole magnesium 40 mg 40 mg PO Q24H 11/11/22 02/23/24 History capsule,delayed release aspirin 81 mg tablet,delayed 81 mg PO QAM #1 tablet 02/23/24 02/23/24 Rx release nicotine 21 mg/24 hr daily 1 patch transdermal DAILY #1 ea 02/23/24 02/23/24 Rx transdermal patch (Nicoderm CQ) nitroglycerin 0.4 mg sublingual 0.4 mg sublingual Q5MIN PRN Chest 02/23/24 02/23/24 Rx tablet (Nitrostat) Pain #1 tablet Allergies Allergy/AdvReac Type Severity Reaction Status Date / Time metformin Allergy Unknown Other Verified 02/22/24 20:10 [email or web address] Allergy Unknown Other Verified 02/22/24 20:10 H&P: Results Labs Labs: Cardiac Enzymes 02/23/24 Range/Units 19:15 Troponin I < 0.012 (0.000-0.034) ng/mL
[2024-02-23] MEDS: QUEtiapine FUMARATE 25 MG TABLET PO (21:56)
[2024-02-23 22:00] VITALS: BP 131/71; PULSE 64; RESP 20; TEMP 36.1; O2SAT 98
[2024-02-23 22:41] LABS: Troponin I < 0.012 ng/mL (0.000-0.034)
[2024-02-23 23:02] VITALS: BP 131/71; PULSE 64; RESP 20; TEMP 36.1; O2SAT 98
[2024-02-24] VITALS (18 sets, daily range): BP systolic 111–151; BP diastolic 64–97; PULSE 63–90; RESP 16–20; TEMP 36.1–36.8; O2SAT 97–100
--- NOTE | 2024-02-24 | ECHO_ITS ---
Patient Info Name: Sara Handley Age: 48 years : 1975 Gender: Female Accession #: $[id number]$ Ht: 66 in Wt: 164 lbs BSA: 1.88 m2 HR: 80 bpm BP: 111 / 64 mmHg Heart Rhythm: Sinus Rhythm Technical Quality: Good Exam Date: 02/24/2024 2:55 PM Exam Location: Echo Lab Exam Room: 341 Patient Status: Inpatient Admit Date: 02/23/2024 Fireworks Display Specialist: Shruthi Lind RDCS Referring Physician: Norberto RICE; Exam Type: CA echo doppler color flow Study Info Complete two-dimensional, color flow and Doppler transthoracic echocardiogram is performed. Summary 1. Complete two-dimensional, color flow and Doppler transthoracic echocardiogram is performed. 2. The anterior wall, and apical lateral wall are hypokinetic. 3. Left ventricular chamber dimension is normal. 4. Left ventricular systolic function is normal, estimated at 65-70%. 5. There is mildly increased left ventricular wall thickness. 6. The left ventricular diastolic function is grade I diastolic dysfunction. 7. There is mild aortic valve regurgitation. 8. There is mild mitral valve regurgitation. 9. There is mild tricuspid valve regurgitation. 10. There is mild pulmonic regurgitation. 11. The aortic root size at the sinus of Valsalva is mildly dilated. Left Ventricle Left ventricular chamber dimension is normal. Left ventricular systolic function is normal, estimated at 65-70%. There is mildly increased left ventricular wall thickness. The left ventricular diastolic function is grade I diastolic dysfunction. The anterior wall, and apical lateral wall are hypokinetic. All other bean appear normal. Right Ventricle Right ventricular chamber dimension is normal. Right ventricular systolic function is normal. Left Atria Left atrial chamber dimension is normal. Right Atria Right atrial chamber dimension is normal. Atrial Septum Intact interatrial septum visualized by color flow imaging. Aortic Valve The aortic valve is trileaflet. There is no aortic valve sclerosis. There is no aortic valve stenosis. There is mild aortic valve regurgitation. Pulmonic Valve The pulmonic valve is normal. There is no pulmonic valve stenosis. There is mild pulmonic regurgitation. Mitral Valve The mitral valve has normal leaflets. There is no mitral valve stenosis. There is mild mitral valve regurgitation. Tricuspid Valve The tricuspid valve leaflets are normal. There is no significant tricuspid valve stenosis. There is mild tricuspid valve regurgitation. No pulmonary hypertension, estimated pulmonary arterial systolic pressure is 30 mmHg. Pericardium/Pleural The pericardium appears normal. There is no pericardial effusion. Inferior Vena Cava Normal inferior vena cava with >50% collapse upon inspiration consistent with normal right atrial pressure, 5 mmHg. Aorta The aortic root size at the sinus of Valsalva is mildly dilated. Left Ventricular Outflow Tract Name Value Normal LVOT 2D LVOT Diameter 2.4 cm LVOT Doppler LVOT Peak Gradient 3 mmHg LVOT Mean Gradient 2 mmHg LVOT VTI 17 cm LVOT VTI/AV VTI Ratio 0.8 LVOT Stroke Volume 77 ml LVOT CO 5.9 l/min LVOT CI 3.2 l/min/m2 Pulmonic Valve Name Value Normal PV Doppler PV Peak Gradient 3 mmHg PV Regurgitation Doppler RI Peak End Diastolic Velocity 97 cm/s Mitral Valve Name Value Normal MV Doppler MV Peak Gradient 3 mmHg MV Mean Gradient 1 mmHg MV Decel Kimball 250 cm/s2 MV PHT 74 ms MV Area (PHT) 3.0 cm2 4.0-5.0 MV Area (Cont Eq VTI) 4.5 cm2 MV Diastolic Function MV E Peak Velocity 64 cm/s MV A Peak Velocity 83 cm/s MV E/A 0.8 MV Decel Time 254 ms MV Annular TDI MV E/e' (Septal) 11.4 <=8.0 MV E/e' (Lateral) 7.6 <=8.0 MV E/e' (Average) 9.5 Tricuspid Valve Name Value Normal TV Regurgitation Doppler TR Peak Velocity 251 cm/s TR Peak Gradient 25 mmHg Estimated PAP/RSVP RA Pressure 5 mmHg <=5 PA Systolic Pressure 30 mmHg <36 RV Systolic Pressure 30 mmHg <36 Aortic Valve Name Value Normal AV Doppler AV Peak Velocity 112 cm/s AV Peak Gradient 5 mmHg AV Mean Gradient 3 mmHg AV VTI 22 cm AV Area (Cont Eq VTI) 3.6 cm2 >=3.0 AV Area (Cont Eq Jeff) 3.7 cm2 AV Regurgitation 2D LVOT Area 4.6 cm2 Ventricles Name Value Normal LV Dimensions 2D/MM IVS Diastolic Thickness (2D) 0.9 cm 0.6-1.0 LVID Diastole (2D) 5.0 cm 3.8-5.2 LVIW Diastolic Thickness (2D) 0.9 cm 0.6-0.9 LVID Systole (2D) 3.6 cm 2.2-3.5 LVOT Diameter 2.4 cm LV Mass (2D Cubed) 165.57 g 67.00-162.00 LV Mass Index (2D Cubed) 88 g/m2 43-95 Relative Wall Thickness (2D) 0.38 LV Fractional Shortening/Ejection Fraction 2D/MM LV Fractional Shortening (2D) 27 % 27-45 LV EF (2D Teichcarolz) 52 % 54-74 LV Diastolic Volume (4C MOD) 137 ml LV EF (4C MOD) 66 % LV Diastolic Length (4C) 8.9 cm LV Systolic Length (4C) 7.7 cm LV Stroke Volume (4C MOD) 90 ml Atria Name Value Normal LA Dimensions LA Volume (4C A-L) 69 ml RA Dimensions RA Area (4C) 16.1 cm2 <=18.0 Wall Motion Scoring Wall Motion Scoring Index: 1.24 Report Signatures
[2024-02-24] MEDS: NITROGLYCERIN SL 0.4 MG TABLET SUBLINGUAL ×3 (01:32→01:41)
--- NOTE | 2024-02-24 01:41 | ECG_ITS ---
Test Date: 2024-02-24 01:49:54 Measurements Intervals [place] Rate: 58 P: 31 ND: 194 QRS: 53 QRSD: 81 T: 66 QT: 487 QTc: 481 Interpretive Statements SINUS BRADYCARDIA WITH SINUS ARRHYTHMIA LOW QRS VOLTAGE IN PRECORDIAL LEADS [QRS DEFLECTION < 1.0 mV IN CHEST LEADS] PROLONGED QT INTERVAL NONSPECIFIC T-WAVE ABNORMALITY ABNORMAL ECG Electronically Signed On 02-24-2024 10:48:58 BEATER TENDER by David Shaw M.D.
[2024-02-24] MEDS: MORPHINE SULFATE (*CRX) 2 MG/ML INJ IV PUSH ×2 (01:48→18:22)
--- NOTE | 2024-02-24 02:03 | PC.NURSE ---
was called to the bedside by slab polisher at 0125. The slab polisher states she entered the room to draw labs and woke the patient up. At that time the patient reported having right chest pain. Tahir juan and fiction and nonfiction writer prose went to bedside, administered nitro x 3 along with morphine and patient reports pain how now subsided. An EKG was obtained and tahir juan contacted hospitalistOmayra to make aware and review the EKG.
[2024-02-24 02:08] LABS: Troponin I < 0.012 ng/mL (0.000-0.034)
[2024-02-24 06:18] LABS: Basophils Percent Auto 0.6 % (0.2-1.2); Eosinophils Absolute Auto 0.4 K/mm3 (0-0.3); Hematocrit 37.8 % (37.0-47.0); Hemoglobin 12.4 g/dL (12.0-15.0); Immature Granulocyte Absolute 0.02 K/mm3 (0.00-0.031); Immature Granulocyte Percent A 0.4 % (0-0.5); Lymphocytes Absolute Auto 2.28 K/mm3 (0.9-3.2); Lymphocytes Percent Auto 42.5 % (18.3-44.2); Mean Corpuscular HGB Conc 32.8 g/dl (32-36); Mean Corpuscular Hemoglobin 31.6 pg (26-34); Mean Corpuscular Volume 96.4 fl (80-100); Mean Platelet Volume 10.7 fl (7.4-10.4); Monocytes Absolute Auto 0.5 K/mm3 (0.1-0.6); Monocytes Percent Auto 9.7 % (2.6-8.5); Neutrophils Absolute Auto 2.1 K/mm3 (1.3-6.7); Neutrophils Percent Auto 38.8 % (45.5-73.1); Platelet Count Result 195 k/mm3 (150-375); Red Blood Count 3.92 M/mm3 (4.2-5.4); Red Cell Distribution Width 12.9 % (11.5-14.5); White Blood Count 5.4 K/mm3 (4.5-10.0)
[2024-02-24 06:25] LABS: Alanine Aminotransferase 14 U/L (6-35); Albumin Level 3.7 g/dL (3.5-5.1); Alkaline Phosphatase 55 U/L (38-126); Anion Gap 5 mmol/L (4-12); Aspartate Amino Transferase 18 U/L (14-36); Bilirubin,Total 0.5 mg/dL (0.2-1.3); Blood Urea Nitrogen 14 mg/dL (7-17); Calcium 8.8 mg/dL (8.4-10.2); Carbon Dioxide 29 mmol/L (22-30); Chloride 105 mmol/L (98-107); Estimated CRCL calculation 95 ml/min; Estimated Glomerular Filt Rate > 60; Glucose 77 mg/dL (65-110); Magnesium 2.4 mg/dL (1.6-2.3); Sodium 139 mmol/L (137-145)
--- NOTE | 2024-02-24 07:34 | P.PNIM_ITS ---
Progress Note: A&P Assessment and Plan (1) Angina at rest: Code(s): I20.89 - Other forms of angina pectoris Status: Acute Assessment and Plan: reporting chest associated shortness that is not relieved with rest * she states she felt better after she was given the morphine and the nitroglycerin in the ED. She states that the pain in her chest was relieved and she was able to breathe better however today she reporting shortness a breath and chest pain that is described as burning in nature and radiates to her mid back. * CTA of the chest and abdomen was negative for dissection or PE and only showed acute gastritis * EKG showing sinus rhythm with a rate of 84, QTC 433--no ST elevation * Troponin negative x2 * will continue morphine and nitroglycerin p.r.n. for chest pain * Cardiology consulted and ruled out unstable angina * D-dimer < 0.27 * repeat chest CTA today to rule out PE per Dr. Shaw request even though the first one did not show PE or dissection was also negative * venous dopplers negative for DVT * Will also obtain venous dopplers to rule out DVT * Stress testing ordered * Echo ordered STAT * Heart healthy diet ordered * Lipid panel showing total cholesterol 204, LDL 131, HDL 53 * Will add Protonix for any possible acid reflux she may have. She was noted to have a sliding hiatal hernia on CTA of the chest * Will obtain chest x-ray to rule out rib fracture (2) Dyspnea: Code(s): R06.00 - Dyspnea, unspecified Status: Acute Assessment and Plan: Differential including anxiety/panic attack versus stable angina versus unstable angina * Was given Ativan, Morphine, and Nitroglycerin while in the ER (3) Migraines: Code(s): G43.909 - Migraine, unspecified, not intractable, without status migrainosus Status: Acute Assessment and Plan: * patient given 1 g of Tylenol, 325 mg of aspirin and is drinking a caffeinated soda * Excedrin migraine ordered (4) GERD (gastroesophageal reflux disease): Code(s): K21.9 - Gastro-esophageal reflux disease without esophagitis Status: Acute Assessment and Plan: * Will start protonix (5) Elevated BP without diagnosis of hypertension: Code(s): R03.0 - Elevated blood-pressure reading, without diagnosis of hypertension Status: Acute Assessment and Plan: * blood pressures ranging 130/90 to 144/82 * not on any current home meds for blood pressure (6) Anxiety: Code(s): F41.9 - Anxiety disorder, unspecified Status: Acute Assessment and Plan: * Continue Buspar * Xanax PRN (7) Major depression: Code(s): F32.9 - Major depressive disorder, single episode, unspecified Status: Acute Assessment and Plan: * Continue Prozac Time Spent With Patient Time with patient: 25 - 35 minutes Subjective Date/time seen: 02/24/24 07:34 Interval history: Interval history: This is a 48-year-old female significant past medical history of migraines, insomnia, vitamin-D deficiency, tobacco abuse, depression, anemia, anxiety, GERD, gastric sleeve surgery who presented to the hospital with increased shortness of breath and dyspnea. Patient originally presented to [facility] and was an inpatient transfer to [facility] for cardiac work up. Patient states that she has been under a lot of stress since [place] and is dealing with some family issues. She noticed that she has become more short of breath just with talking and Started having right-sided chest pain that radiates to her back that does not go away with rest. She was treated for anxiety in the past however she stopped all of her medications about 8 months ago due to weight gain. She states she feels anxious all the time however even with her anxiety in the past she has never had chest pain and shortness of breath associated with it. She states she has a family history of coronary artery disease and has had a few family members with MIs and congestive heart failure. She admits to smoking 1 pack of cigarettes per day. She did receive nitroglycerin and morphine in the ED which did relieve her chest pain. She states after that dose she was able to take a deep breath for the 1st time in a while. She denies any fever, chills, nausea, vomiting, diarrhea, abdominal pain. She denies any recent sick contacts. Workup in the hospital included a chest / abdomen CTA which showed moderate gastritis, no dissection. Initial labs showed a normal white blood cell count of 9.8, potassium 3.4, magnesium 1.9, troponin negative x2, proBNP was only 94. Respiratory panel was negative for influenza A and B, RSV, COVID. EKG showed sinus rhythm with a rate of 84, QTC 435, no ST elevation. Patient was given 4 mg IV push morphine, Ativan, Maalox, and nitroglycerin while in the ED at [facility]. Cardiology consulted. Subjective: Troponin negative x5, D- dimer was < 0.27. Cardiology requesting Chest CTA to rule out PE even though she had one at [facility] which did not show PE. Dr. Shaw believes this to be more pleuritic in nature than anginal and is not unstable angina. Patient reports that she still has the chest pain today. She describes it as burning in nature and goes all the way through to her back. I did ask her about any GI issues and she admits that she has had some acid reflux in the past but it has never felt like this. She states that the heart burn pain goes away when eating. Labs and imaging reviewed. Review of Systems Review of Systems: All systems reviewed & are unremarkable except as noted in HPI and below Constitutional: Constitutional: Reports as per HPI and Reports no additional constitutional complaints Eyes: Eyes: Reports as per HPI and Reports no additional eye complaints ENT: Reports system reviewed and no additional complaints, except as documented and Reports as per HPI Cardiovascular: Cardiovascular: Reports as per HPI and Reports no additional cardiovascular complaints Respiratory: Respiratory: Reports as per HPI and Reports no additional respiratory complaints Gastrointestinal: Gastrointestinal: Reports as per HPI and Reports no additional gastrointestinal complaints Genitourinary: Genitourinary: Reports no additional female genitourinary complaints and Reports as per HPI Musculoskeletal: Musculoskeletal: Reports no additional musculoskeletal complaints and Reports as per HPI Integumentary/Breasts: Skin/Breast: Reports system reviewed and no additional complaints, except as docu and Reports as per HPI Neurologic: Reports system reviewed and no additional complaints, except as documented and Reports as per HPI Psychiatric: Psychiatric: Reports no additional psychiatric complaints and Reports as per HPI Exam Narrative: General: In no ac [place] distress, well nourished Head: a traumatic, no ence phalopathy Eyes: E NIKIA, PERRLA, scler a clear ENT: moist mucous membranes, nasal passages cl ear Neck: supple, no JVD, no adenopa thy, trachea midli ne Cardiac: Normal S1 and S2. RRR, No murmur, gallops or friction rubs, peripheral pulses intact. Reports r ight sided chest p ain that radiates to her back even a t rest Respiratory : Lungs clear to a uscultation, no ad ventitious lung so unds, currently on room air. SOB wit h rest and exertio n. Gastrointestin al: soft, non-dist ended, non-tender, normoactive bowel sounds. : voidi ng without difficu lty. Extremities: moves all extremit ies well, no edema , good ROM, streng th 06/17 Skin: clean , dry, intact. No wounds or lesions. Neuro: Alert and oriented x4, cran ial nerves intact, no neuro deficits . Psych: normal m ood, normal affect , interactive Objective Data Vital Signs Vital Signs: Vital Signs - 24 hr 02/23/24 20:00 02/23/24 22:00 02/23/24 23:02 Temperature 97.0 F L Pulse Rate 69 64 Respiratory Rate 20 Blood Pressure 131/71 Pulse Oximetry 98 Oxygen Delivery Room Air 02/24/24 00:00 02/24/24 01:30 02/24/24 01:32 Temperature 97.2 F L Pulse Rate 75 65 75 Respiratory Rate Blood Pressure 151/90 H 148/95 H Pulse Oximetry 100 100 Oxygen Delivery 02/24/24 01:35 02/24/24 01:36 02/24/24 01:40 Temperature Pulse Rate 88 83 83 Respiratory Rate Blood Pressure 136/97 H 134/90 125/80 Pulse Oximetry 100 98 99 Oxygen Delivery 02/24/24 01:44 02/24/24 04:00 Temperature Pulse Rate 78 68 Respiratory Rate 18 Blood Pressure 119/79 Pulse Oximetry 99 Oxygen Delivery Meds/Results Medications: Active Medications Generic Name Dose Route Start Last Admin Trade Name Freq PRN Reason Stop Dose Admin Acetaminophen 650 mg 02/23/24 19:22 Acetaminophen 325 Mg Tablet PO Q4H PRN Mild Pain (1-3) or Fever Acetaminophen/Aspirin/Caffeine 1 tablet 02/23/24 19:21 Acetaminophen/Aspirin/Caffeine 250-250-65 Mg Tablet PO Q6H PRN Pain Rated 1-3 Aspirin 81 mg 02/24/24 09:00 Aspirin 81 Mg Enteric Tablet PO QAM STEPHON Buspirone HCl 0 mg 02/24/24 09:00 Buspirone Hcl 5 Mg Tablet PO BID [facility] Cyclobenzaprine HCl 10 mg 02/23/24 19:21 Cyclobenzaprine Hcl 10 Mg Tablet PO TID PRN muscle spasm Enoxaparin Sodium 40 mg 02/24/24 09:00 Enoxaparin 40 Mg/0.4 Ml Syringe SUB-Q DAILY [facility] Fluoxetine HCl 40 mg 02/24/24 09:00 Fluoxetine Hcl 20 Mg Capsule PO DAILY [facility] Miscellaneous Information 1 each 02/24/24 00:01 Med Rec Order Clarification XX 03/25/24 00:00 CLARIFY [facility] Morphine Sulfate 2 mg 02/23/24 19:22 02/24/24 01:48 Morphine Sulfate (*Crx) 2 Mg/Ml Inj IV PUSH 2 mg Q4H PRN Administration Chest Pain Nicotine 1 patch 02/24/24 09:00 Nicotine (*Pbkc) 21 Mg Patch TRANSDERM DAILY [facility] Nitroglycerin 0.4 mg 02/23/24 18:35 02/24/24 01:41 Nitroglycerin Sl 0.4 Mg Tablet SUBLINGUAL 0.4 mg Q5MIN PRN Administration Chest Pain Nitroglycerin 0.4 mg 02/23/24 19:21 Nitroglycerin Sl 0.4 Mg Tablet SUBLINGUAL Q5MIN PRN Chest Pain Ondansetron HCl 4 mg 02/23/24 19:22 Ondansetron Inj 4 Mg/2 Ml Vial IV PUSH Q6H PRN Nausea And Vomiting Perflutren Lipid Microsphere 0 ml 02/23/24 19:28 Perflutren Lipid Microspheres 1.5 Ml Vial Diluted To 10 Ml Total Volume IV PUSH 02/26/24 19:28 ONCE PRN adequate visualization Protocol Quetiapine Fumarate 25 mg 02/23/24 21:00 02/23/24 21:56 Quetiapine Fumarate 25 Mg Tablet PO 25 mg QHS [facility] Administration Labs Labs: Laboratory Results - last 24 hr 02/23/24 02/23/24 02/24/24 19:15 22:13 01:25 WBC RBC Hgb Hct MCV MCH MCHC RDW Plt Count MPV Immature Gran % (Auto) Neut % (Auto) Lymph % (Auto) [place] % (Auto) Eos % (Auto) Baso % (Auto) Lymph # (Auto) [place] # (Auto) Eos # (Auto) Baso # (Auto) Abs Immat Gran (auto) Absolute Neuts (auto) Absolute Nucleated RBC Nucleated RBC % Sodium Potassium Chloride Carbon Dioxide Anion Gap BUN Creatinine Estim Creat Clear Calc Estimated GFR Glucose Calcium Magnesium Total Bilirubin AST ALT Alkaline Phosphatase Troponin I < 0.012 < 0.012 < 0.012 Total Protein Albumin 02/24/24 05:35 WBC 5.4 RBC 3.92 L Hgb 12.4 Hct 37.8 MCV 96.4 MCH 31.6 MCHC 32.8 RDW 12.9 Plt Count 195 MPV 10.7 H Immature Gran % (Auto) 0.4 Neut % (Auto) 38.8 L Lymph % (Auto) 42.5 [place] % (Auto) 9.7 H Eos % (Auto) 8.0 H Baso % (Auto) 0.6 Lymph # (Auto) 2.28 [place] # (Auto) 0.5 Eos # (Auto) 0.4 H Baso # (Auto) 0.0 Abs Immat Gran (auto) 0.02 Absolute Neuts (auto) 2.1 Absolute Nucleated RBC 0.000 Nucleated RBC % 0.0 Sodium 139 Potassium 4.0 Chloride 105 Carbon Dioxide 29 Anion Gap 5 BUN 14 Creatinine 0.59 L Estim Creat Clear Calc 95 Estimated GFR > 60 Glucose 77 Calcium 8.8 Magnesium 2.4 H Total Bilirubin 0.5 AST 18 ALT 14 Alkaline Phosphatase 55 Troponin I Total Protein 6.0 L Albumin 3.7 Quality VTE Prophylaxis VTE prophylaxis: pharmacologic ordered
[2024-02-24] MEDS: ACETAMINOPHEN/ASPIRIN/CAFFEINE 250-250-65 MG TABLET 1 TABLET PO (08:55)
[2024-02-24] MEDS: ASPIRIN 81 MG ENTERIC TABLET PO (09:19)
[2024-02-24] MEDS: FLUoxetine HCL 20 MG CAPSULE 40 MG PO (09:20)
[2024-02-24] MEDS: busPIRone HCL 5 MG TABLET PO ×2 (09:20→17:06)
[2024-02-24] MEDS: NICOTINE (*PBKC) 21 MG PATCH 1 PATCH TRANSDERM (09:22)
--- NOTE | 2024-02-24 10:00 | PM.CNCAR ---
Assessment and Plan Assessment and plan (1) Chest pain: Code(s): R07.9 - Chest pain, unspecified Status: Acute Assessment and Plan: She has chest pain that is clearly pleuritic. It does not sound anginal. It is sharp in nature and worsened by deep breathing. She did have a leg injury and at some swelling in her leg. No pericardial effusion was noted on previous CT scan. No mention of pulmonary embolism which is something that needs to be ruled out. 2D echocardiogram Doppler is ordered will be reviewed. Will check a D-dimer and will discuss with hospitalist regarding CT scan chest to rule out for pulmonary embolism. Depending on workup, she may require stress test but obviously given an EKG was shows no significant ST or T-wave abnormalities and negative troponins x5, stress test will be deferred until the workup is complete and possibly order on Monday depending on results of other tests. Continue aspirin 81 mg p.o. daily. (2) Elevated BP without diagnosis of hypertension: Code(s): R03.0 - Elevated blood-pressure reading, without diagnosis of hypertension Status: Acute (3) Anxiety: Code(s): F41.9 - Anxiety disorder, unspecified Status: Acute Assessment and Plan: Overall needs better treatment (4) Tobacco abuse: Code(s): Z72.0 - Tobacco use Status: Acute Assessment and Plan: Tobacco cessation performed (5) Dyspnea: Code(s): R06.00 - Dyspnea, unspecified Status: Acute Assessment and Plan: Acute dyspnea: Consider underlying lung disease, pulmonary embolism, unlikely angina be a not excluded, pericardial disease, COPD versus anxiety versus other History of Present Illness History of Present Illness Consult date/time: 02/24/24 10:00 Requesting physician: Sita Thornton, [employer] Consult reason: Other (Unstable angina) Reason For Visit: Unstable Angina/Direct Admit Narrative: Reason for consultation: Unstable angina Date of service 02/24/2024 Requesting provider: Sita Thornton History: Patient is a 48-year-old female who has a history of migraine headaches, bariatric surgery, panic attacks, anxiety, GERD who started to have some chest pain 3-4 days ago at this point. Pain started by deep breathing. She was also short of breath with doing things such as talking. She was and take some deep breaths in order to catch up and that would result and sharp pain that radiated into the back. She has ruled out for myocardial infarction with serial troponins negative x5. She takes Tylenol and ibuprofen and Excedrin for migraine headaches. Symptoms progressed over the next couple of days and eventually she went to the emergency department now 2 days ago at [place] and has been transferred down here to [place] for further workup and evaluation. She continues to have some shortness of breath and sharp chest pain by deep breathing. She has been given some anxiety medications without much benefit. She has been given some morphine which dull is a pain and helps her sleep. She denies any significant swelling. She did have an ankle injury recently and some swelling around her right lower leg. No palpitations, syncope, presyncope, paroxysmal nocturnal dyspnea or orthopnea. Her panic attack pain is in situational and will radiate down her right arm. It is a pressure sensation that will last 5-6 minutes at a time and has been ongoing for years. Her current symptoms are not similar to her previous panic disorder. Review of Systems Review of Systems: All systems reviewed & are unremarkable except as noted in HPI and below Constitutional: Constitutional: Denies body ache(s) Eyes: Eyes: Denies blurry vision ENT: Denies Normal hearing present Cardiovascular: Cardiovascular: Reports chest pain Respiratory: Respiratory: Reports dyspnea Gastrointestinal: Gastrointestinal: Denies abdominal pain Genitourinary: Genitourinary: Denies hematuria Musculoskeletal: Musculoskeletal: Denies back pain Integumentary/Breasts: Skin/Breast: Denies erythema Neurologic: Denies Abnormal speech present Psychiatric: Psychiatric: Reports anxiety Endocrine: Endocrine: Denies excessive sweating Hematologic/Lymphatic: Hematologic/Lymphatic: Denies easy bleeding Allergic/Immunologic: Allergic/Immunologic: Denies GI upset with certain foods PMFSH Past Medical History Medical History Thoracic back pain Migraines Vitamin D deficiency Vitamin deficiency Insomnia Screening mammogram for breast cancer Tobacco abuse Elevated BP without diagnosis of hypertension Encounter to establish care History of abdominal hernia Upper abdominal pain Major depression Anemia Muscle spasm Anxiety Allergies Cholecystectomy planned Depression GERD (gastroesophageal reflux disease) Surgical History Surgical History History of hysterectomy History of bariatric surgery Family History Family History Father Family history of lung cancer Hypertension Heart disease Grandparent Cancer Hypertension Depression Diabetes mellitus Anxiety Acute myocardial infarction Heart disease Mother Hypertension Depression Anxiety Sibling Depression Anxiety Other Cerebrovascular accident Family history of allergic disorder Family history of cardiovascular disease Social History Social History Smoking packs per day: 1 Smoking cigarettes per day: 20.0 Years smoked: 33 Smoking pack-years: 33.00 Smoking status: Current every day smoker Tobacco type: cigarettes Alcohol intake: current Drinks per week: 1 Alcohol use details: Rarely Substance use: former Substance use type: marijuana Do You Feel Safe in your Home?: Yes Lack of Transportation: No Lack of Food: Never True Current Housing: I Have Housing Concerned About Future Housing: No Difficulty Paying Gas/Electric Bills: No Difficulty Paying for Meds: No Currently Unemployed: No Education: High School Diploma/GED Difficulty w/ Childcare or Family Care: No Spiritual care concerns: No Meds Home Medications and Allergies Home Medications ?Medication ?Instructions ?Recorded ?Confirmed ?Type ergocalciferol (vitamin D2) 1,250 1,250 mcg PO WEEKLY #13 caps 07/12/22 02/23/24 Rx mcg (50,000 unit) capsule fluoxetine 40 mg capsule 40 mg PO DAILY #30 caps 07/12/22 02/23/24 Rx quetiapine 25 mg tablet (Seroquel) 25 mg PO QHS #30 tabs 07/12/22 02/23/24 Rx buspirone 5 mg tablet See Rx Instructions PO BID #180 10/03/22 02/23/24 Rx tabs cyclobenzaprine 10 mg tablet 10 mg PO TID PRN muscle spasm #30 10/09/22 02/23/24 Rx tabs esomeprazole magnesium 40 mg 40 mg PO Q24H 11/11/22 02/23/24 History capsule,delayed release aspirin 81 mg tablet,delayed 81 mg PO QAM #1 tablet 02/23/24 02/23/24 Rx release nicotine 21 mg/24 hr daily 1 patch transdermal DAILY #1 ea 02/23/24 02/23/24 Rx transdermal patch (Nicoderm CQ) nitroglycerin 0.4 mg sublingual 0.4 mg sublingual Q5MIN PRN Chest 02/23/24 02/23/24 Rx tablet (Nitrostat) Pain #1 tablet Allergies Allergy/AdvReac Type Severity Reaction Status Date / Time metformin Allergy Unknown Other Verified 02/22/24 20:10 [email or web address] Allergy Unknown Other Verified 02/22/24 20:10 Vital Signs Vital Signs - 24 hr 02/23/24 20:00 02/23/24 22:00 02/23/24 22:00 Temperature 36.1 C L Pulse Rate 69 64 Respiratory Rate 20 Blood Pressure 131/71 Pulse Oximetry 98 Oxygen Delivery Room Air 02/23/24 22:00 02/23/24 23:02 02/24/24 00:00 Temperature 36.1 C L 36.1 C L Pulse Rate 64 64 75 Respiratory Rate 20 20 Blood Pressure 131/71 131/71 Pulse Oximetry 98 98 Oxygen Delivery 02/24/24 01:30 02/24/24 01:32 02/24/24 01:35 Temperature 36.2 C L Pulse Rate 65 75 88 Respiratory Rate Blood Pressure 151/90 H 148/95 H 136/97 H Pulse Oximetry 100 100 100 Oxygen Delivery 02/24/24 01:36 02/24/24 01:40 02/24/24 01:44 Temperature Pulse Rate 83 83 78 Respiratory Rate 18 Blood Pressure 134/90 125/80 119/79 Pulse Oximetry 98 99 99 Oxygen Delivery 02/24/24 04:00 02/24/24 06:00 02/24/24 08:00 Temperature 36.8 C Pulse Rate 68 84 67 Respiratory Rate 20 Blood Pressure 132/72 Pulse Oximetry 98 Oxygen Delivery Exam Narrative: alert oriented appears stated age Const: General: comfortable and no acute distress HENMT: Face/Nose/Sinus: Normal nares present Mouth: Yes moist mucous membranes Eyes: General: appearance normal, both eyes and all related structures Sclera: sclerae normal Neck: Neck: supple and no JVD Chest: Other: Mildly tender right upper chest wall Resp: Effort & Inspection: normal respiratory effort Auscultation: wheezes Cardio: Rate: regular rate Rhythm: regular rhythm Heart sounds: no murmurs and no rubs GI: Inspection: non-distended GI Palp: Yes Soft to palpation Auscultation: normal bowel sounds Skin: General skin exam: normal color Neuro: Speech: normal speech Extrem: General: normal to inspection Psych: Mental Status: mental status grossly normal Results Labs and Meds 02/24/24 05:35 02/24/24 05:35 Lab results: Cardiac Enzymes 02/23/24 02/23/24 02/24/24 Range/Units 19:15 22:13 01: AST (14-36) U/L Troponin I < 0.012 < 0.012 < 0.012 (0.000-0.034) ng/mL 02/24/24 Range/Units 05:35 AST 18 (14-36) U/L Troponin I (0.000-0.034) ng/mL CBC 02/24/24 Range/Units 05:35 WBC 5.4 (4.5-10.0) K/mm3 RBC 3.92 L (4.2-5.4) M/mm3 Hgb 12.4 (12.0-15.0) g/dL Hct 37.8 (37.0-47.0) % Plt Count 195 (150-375) k/mm3 Lymph # (Auto) 2.28 (0.9-3.2) K/mm3 [place] # (Auto) 0.5 (0.1-0.6) K/mm3 Eos # (Auto) 0.4 H (0-0.3) K/mm3 Baso # (Auto) 0.0 (0.0-0.1) K/mm3 Comprehensive Metabolic Panel 02/24/24 Range/Units 05:35 Sodium 139 (137-145) mmol/L Potassium 4.0 (3.4-5.0) mmol/L Chloride 105 (98-107) mmol/L Carbon Dioxide 29 (22-30) mmol/L BUN 14 (7-17) mg/dL Creatinine 0.59 L (0.7-1.0) mg/dL Glucose 77 (65-110) mg/dL Calcium 8.8 (8.4-10.2) mg/dL AST 18 (14-36) U/L ALT 14 (6-35) U/L Alkaline Phosphatase 55 (38-126) U/L Total Protein 6.0 L (6.3-8.2) g/dL Albumin 3.7 (3.5-5.1) g/dL Intake and Output 02/23/24 02/24/24 02/24/24 23:59 07:59 15:59 Intake Total 500 Balance 500 Intake: Oral 500 Other: # Unmeasured Voids 2 EKG is personally reviewed and independently interpreted showing normal sinus rhythm, long QT interval, nonspecific T-wave abnormality. No ST or T-wave deviation. Abnormal ECG
[2024-02-24 11:11] LABS: D Dimer < 0.27 ug/mL (<0.48)
[2024-02-24] MEDS: PANTOPRAZOLE 40 MG TABLET PO (17:06)
[2024-02-24] MEDS: NITROGLYCERIN OINTMENT 1 INCH DOSE TRANSDERM (18:31)
--- NOTE | 2024-02-24 19:26 | PC.NURSE ---
This patient, Sara Handley, was transferred to [facility] on 02/24/24 at 1926. Personal belongings sent with patient. Report given to CALI Partida. Appropriate documentation sent with patient.
[2024-02-24 19:49] LABS: Basophils Absolute Auto 0.1 K/mm3 (0.0-0.1); Basophils Percent Auto 0.6 % (0.2-1.2); Eosinophils Absolute Auto 0.5 K/mm3 (0-0.3); Eosinophils Percent Auto 6.6 % (0-4.4); Hematocrit 39.2 % (37.0-47.0); Hemoglobin 13.2 g/dL (12.0-15.0); Immature Granulocyte Absolute 0.02 K/mm3 (0.00-0.031); Immature Granulocyte Percent A 0.3 % (0-0.5); Lymphocytes Absolute Auto 2.59 K/mm3 (0.9-3.2); Lymphocytes Percent Auto 33.1 % (18.3-44.2); Mean Corpuscular HGB Conc 33.7 g/dl (32-36); Mean Corpuscular Hemoglobin 31.5 pg (26-34); Mean Corpuscular Volume 93.6 fl (80-100); Mean Platelet Volume 10.4 fl (7.4-10.4); Monocytes Absolute Auto 0.6 K/mm3 (0.1-0.6); Monocytes Percent Auto 8.1 % (2.6-8.5); Neutrophils Percent Auto 51.3 % (45.5-73.1); Platelet Count Result 222 k/mm3 (150-375); Red Blood Count 4.19 M/mm3 (4.2-5.4); Red Cell Distribution Width 12.8 % (11.5-14.5); White Blood Count 7.8 K/mm3 (4.5-10.0)
[2024-02-24 19:59] LABS: Cholesterol 194 mg/dL (0-200); HDL Direct 48 mg/dL; Triglycerides 217 mg/dL (<150)
[2024-02-24 20:00] LABS: INR 0.9; Prothrombin Time 12.8 Seconds (11.1-14.7)
[2024-02-24 20:01] LABS: Partial Thromboplastin Time 32.2 Seconds (22.3-36.8)
[2024-02-24 20:10] LABS: LDL Cholesterol Direct 109 mg/dL
[2024-02-24] MEDS: HEPARIN SOD/D5W 100 UNITS/ML 25,000 UNITS/250 ML BAG 8 UNITS IV CONT (20:19)
[2024-02-24] MEDS: QUEtiapine FUMARATE 25 MG TABLET PO (20:32)
[2024-02-25] VITALS (14 sets, daily range): BP systolic 101–122; BP diastolic 57–83; PULSE 66–95; RESP 14–24; TEMP 36.4–36.8; O2SAT 95–100
[2024-02-25] MEDS: NITROGLYCERIN OINTMENT 1 INCH DOSE TRANSDERM ×5 (00:27→23:04)
[2024-02-25] MEDS: ACETAMINOPHEN 325 MG TABLET 650 MG PO ×2 (00:31→09:21)
[2024-02-25 03:34] LABS: Basophils Percent Auto 0.5 % (0.2-1.2); Eosinophils Absolute Auto 0.4 K/mm3 (0-0.3); Eosinophils Percent Auto 6.8 % (0-4.4); Hematocrit 37.3 % (37.0-47.0); Hemoglobin 12.1 g/dL (12.0-15.0); Immature Granulocyte Absolute 0.01 K/mm3 (0.00-0.031); Immature Granulocyte Percent A 0.2 % (0-0.5); Lymphocytes Absolute Auto 2.23 K/mm3 (0.9-3.2); Lymphocytes Percent Auto 36.2 % (18.3-44.2); Mean Corpuscular HGB Conc 32.4 g/dl (32-36); Mean Corpuscular Hemoglobin 30.9 pg (26-34); Mean Corpuscular Volume 95.2 fl (80-100); Mean Platelet Volume 10.3 fl (7.4-10.4); Monocytes Absolute Auto 0.5 K/mm3 (0.1-0.6); Monocytes Percent Auto 8.6 % (2.6-8.5); Neutrophils Absolute Auto 2.9 K/mm3 (1.3-6.7); Neutrophils Percent Auto 47.7 % (45.5-73.1); Platelet Count Result 192 k/mm3 (150-375); Red Blood Count 3.92 M/mm3 (4.2-5.4); Red Cell Distribution Width 12.8 % (11.5-14.5); White Blood Count 6.2 K/mm3 (4.5-10.0)
[2024-02-25 03:46] LABS: Partial Thromboplastin Time 44.9 Seconds (22.3-36.8)
[2024-02-25 03:52] LABS: Alanine Aminotransferase 12 U/L (6-35); Albumin Level 3.6 g/dL (3.5-5.1); Alkaline Phosphatase 59 U/L (38-126); Anion Gap 3 mmol/L (4-12); Aspartate Amino Transferase 18 U/L (14-36); Bilirubin,Total 0.4 mg/dL (0.2-1.3); Blood Urea Nitrogen 17 mg/dL (7-17); Calcium 8.9 mg/dL (8.4-10.2); Carbon Dioxide 27 mmol/L (22-30); Chloride 107 mmol/L (98-107); Estimated CRCL calculation 96 ml/min; Estimated Glomerular Filt Rate > 60; Glucose 90 mg/dL (65-110); Sodium 137 mmol/L (137-145)
[2024-02-25] MEDS: HEPARIN SODIUM 5,000 UNITS/ML VIAL 4000 UNITS IV PUSH (04:11)
[2024-02-25] MEDS: ACETAMINOPHEN/ASPIRIN/CAFFEINE 250-250-65 MG TABLET 1 TABLET PO (07:22)
--- NOTE | 2024-02-25 08:15 | ECG_ITS ---
Test Date: 2024-02-25 08:06:28 Measurements Intervals [place] Rate: 69 P: 29 ND: 180 QRS: -2 QRSD: 91 T: -8 QT: 432 QTc: 464 Interpretive Statements SINUS RHYTHM NONSPECIFIC T-WAVE ABNORMALITY PROLONGED QT INTERVAL NONSPECIFIC T-WAVE ABNORMALITY ABNORMAL ECG Electronically Signed On 02-25-2024 08:41:53 [employer] by David Shaw M.D.
[2024-02-25] MEDS: FLUoxetine HCL 20 MG CAPSULE 40 MG PO (09:18)
[2024-02-25] MEDS: busPIRone HCL 5 MG TABLET PO ×2 (09:19→16:54)
[2024-02-25] MEDS: ATORVASTATIN 40 MG TABLET PO (09:19)
[2024-02-25] MEDS: ASPIRIN 81 MG ENTERIC TABLET PO (09:19)
[2024-02-25] MEDS: PANTOPRAZOLE 40 MG TABLET PO ×2 (09:19→16:54)
--- NOTE | 2024-02-25 09:31 | P.PNIM_ITS ---
Progress Note: A&P Assessment and Plan (1) Angina at rest: Code(s): I20.89 - Other forms of angina pectoris Status: Acute Assessment and Plan: reporting chest associated shortness that is not relieved with rest * she states she felt better after she was given the morphine and the nitroglycerin in the ED. She states that the pain in her chest was relieved and she was able to breathe better however today she reporting shortness a breath and chest pain that is described as burning in nature and radiates to her mid back. * CTA of the chest and abdomen was negative for dissection or PE and only showed acute gastritis * EKG showing sinus rhythm with a rate of 84, QTC 433--no ST elevation * Troponin negative x2 * will continue morphine and nitroglycerin p.r.n. for chest pain * Cardiology consulted and ruled out unstable angina * D-dimer < 0.27 * repeat chest CTA today to rule out PE per Dr. Shaw request even though the first one did not show PE or dissection was also negative * venous dopplers negative for DVT * Will also obtain venous dopplers to rule out DVT * Stress testing ordered * Echo ordered STAT * Heart healthy diet ordered * Lipid panel showing total cholesterol 204, LDL 131, HDL 53 * Will add Protonix for any possible acid reflux she may have. She was noted to have a sliding hiatal hernia on CTA of the chest * Will obtain chest x-ray to rule out rib fracture 02/24 * Echo showing anterior wall, and apical lateral wall hypokinesis, LV systolic function was normal with an estimated EF of 65-70%, grade 1 diastolic dysfunction. * Continue Heparin infusion per ACS protocol * Cardiology following, ? plan for cardiac cath tomorrow * EKG today shown NSR with nonspecific T wave abnormality, prolonged QTc 464, rate of 69 (2) Dyspnea: Code(s): R06.00 - Dyspnea, unspecified Status: Acute Assessment and Plan: Differential including anxiety/panic attack versus stable angina versus unstable angina * Was given Ativan, Morphine, and Nitroglycerin while in the ER (3) Migraines: Code(s): G43.909 - Migraine, unspecified, not intractable, without status migrainosus Status: Acute Assessment and Plan: * patient given 1 g of Tylenol, 325 mg of aspirin and is drinking a caffeinated soda * Excedrin migraine ordered (4) GERD (gastroesophageal reflux disease): Code(s): K21.9 - Gastro-esophageal reflux disease without esophagitis Status: Acute Assessment and Plan: * Will start protonix 02/24 * Continue protonix BID * Symptoms have improved since starting Protonix * Reports that her burning pain goes away after eating, concerns for duodenal ulcer * GI consult (5) Elevated BP without diagnosis of hypertension: Code(s): R03.0 - Elevated blood-pressure reading, without diagnosis of hypertension Status: Acute Assessment and Plan: * blood pressures ranging 130/90 to 144/82 * not on any current home meds for blood pressure (6) Anxiety: Code(s): F41.9 - Anxiety disorder, unspecified Status: Acute Assessment and Plan: * Continue Buspar * Xanax PRN (7) Major depression: Code(s): F32.9 - Major depressive disorder, single episode, unspecified Status: Acute Assessment and Plan: * Continue Prozac Time Spent With Patient Time with patient: 25 - 35 minutes Subjective Date/time seen: 02/25/24 09:31 Interval history: Interval history: This is a 48-year-old female significant past medical history of migraines, insomnia, vitamin-D deficiency, tobacco abuse, depression, anemia, anxiety, GERD, gastric sleeve surgery who presented to the hospital with increased shortness of breath and dyspnea. Patient originally presented to [facility] and was an inpatient transfer to [facility] for cardiac work up. Patient states that she has been under a lot of stress since Ran and is dealing with some family issues. She noticed that she has become more short of breath just with talking and Started having right-sided chest pain that radiates to her back that does not go away with rest. She was treated for anxiety in the past however she stopped all of her medications about 8 months ago due to weight gain. She states she feels anxious all the time however even with her anxiety in the past she has never had chest pain and shortness of breath associated with it. She states she has a family history of coronary artery disease and has had a few family members with MIs and congestive heart failure. She admits to smoking 1 pack of cigarettes per day. She did receive nitroglycerin and morphine in the ED which did relieve her chest pain. She states after that dose she was able to take a deep breath for the 1st time in a while. She denies any fever, chills, nausea, vomiting, diarrhea, abdominal pain. She denies any recent sick contacts. Workup in the hospital included a chest / abdomen CTA which showed moderate gastritis, no dissection. Initial labs showed a normal white blood cell count of 9.8, potassium 3.4, magnesium 1.9, troponin negative x2, proBNP was only 94. Respiratory panel was negative for influenza A and B, RSV, COVID. EKG showed sinus rhythm with a rate of 84, QTC 435, no ST elevation. Patient was given 4 mg IV push morphine, Ativan, Maalox, and nitroglycerin while in the ED at [facility]. Cardiology consulted. Subjective: Patient states that she is still SOB and chest discomfort today at rest. She did say that the Protonix BID has helped tremendously with the burning pain. She may have two different issues going on here. She is currently resting comfortably on heparin infusion. Labs and imaging reviewed. Review of Systems Review of Systems: All systems reviewed & are unremarkable except as noted in HPI and below Constitutional: Constitutional: Reports as per HPI and Reports no additional constitutional complaints Eyes: Eyes: Reports as per HPI and Reports no additional eye complaints ENT: Reports system reviewed and no additional complaints, except as documented and Reports as per HPI Cardiovascular: Cardiovascular: Reports as per HPI and Reports no additional cardiovascular complaints Respiratory: Respiratory: Reports as per HPI and Reports no additional respiratory complaints Gastrointestinal: Gastrointestinal: Reports as per HPI and Reports no additional gastrointestinal complaints Genitourinary: Genitourinary: Reports no additional female genitourinary complaints and Reports as per HPI Musculoskeletal: Musculoskeletal: Reports no additional musculoskeletal complaints and Reports as per HPI Integumentary/Breasts: Skin/Breast: Reports system reviewed and no additional complaints, except as docu and Reports as per HPI Neurologic: Reports system reviewed and no additional complaints, except as documented and Reports as per HPI Psychiatric: Psychiatric: Reports no additional psychiatric complaints and Reports as per HPI Exam Narrative: General: In no ac kirti distress, well nourished Cardiac : Normal S1 and S2 . RRR, No murmur, gallops or fricti on rubs, periphera l pulses intact. S till reporting tita st discomfort Resp iratory: Lungs laura ar to auscultation , no adventitious lung sounds, curre ntly on room air. SOB with rest and exertion. Gastroi ntestinal: soft, n on-distended, non- tender, normoactiv e bowel sounds. : voiding without difficulty. Neuro: Alert and oriente d x4 Objective Data Vital Signs Vital Signs: Vital Signs - 24 hr 02/24/24 12:00 02/24/24 14:46 02/24/24 16:00 Temperature 97.9 F Pulse Rate 63 80 69 Respiratory Rate 17 Blood Pressure 111/64 Pulse Oximetry 97 Oxygen Delivery 02/24/24 18:21 02/24/24 19:16 02/24/24 20:00 Temperature 97.0 F L 97.0 F L Pulse Rate 72 72 Respiratory Rate 16 20 Blood Pressure 135/84 139/78 Pulse Oximetry 99 100 Oxygen Delivery Room Air 02/24/24 20:00 02/24/24 21:02 02/24/24 22:00 Temperature 97.8 F Pulse Rate 66 65 90 Respiratory Rate 18 Blood Pressure 124/78 Pulse Oximetry 100 Oxygen Delivery 02/25/24 00:00 02/25/24 00:00 02/25/24 00:00 Temperature 98.1 F Pulse Rate 70 81 Respiratory Rate 18 Blood Pressure 112/63 Pulse Oximetry 100 Oxygen Delivery Room Air 02/25/24 02:00 02/25/24 04:00 02/25/24 04:00 Temperature Pulse Rate 79 74 Respiratory Rate Blood Pressure Pulse Oximetry Oxygen Delivery Room Air 02/25/24 04:00 02/25/24 06:00 02/25/24 08:00 Temperature 98.2 F 97.6 F Pulse Rate 74 71 67 Respiratory Rate 18 16 Blood Pressure 116/70 117/63 Pulse Oximetry 100 96 Oxygen Delivery Intake/Output Intake/Output: Intake & Output 02/22/24 02/23/24 02/24/24 02/25/24 23:59 23:59 23:59 23:59 Intake Total 1280 312.9 Output Total 1 Balance 1279 312.9 Meds/Results Medications: Active Medications Generic Name Dose Route Start Last Admin Trade Name Freq PRN Reason Stop Dose Admin Acetaminophen 650 mg 02/23/24 19:22 02/25/24 09:21 Acetaminophen 325 Mg Tablet PO 650 mg Q4H PRN Administration Mild Pain (1-3) or Fever Acetaminophen/Aspirin/Caffeine 1 tablet 02/23/24 19:21 02/25/24 07:22 Acetaminophen/Aspirin/Caffeine 250-250-65 Mg Tablet PO 1 tablet Q6H PRN Administration Pain Rated 1-3 Aspirin 81 mg 02/24/24 09:00 02/25/24 09:19 Aspirin 81 Mg Enteric Tablet PO 81 mg QAM STEPHON Administration Atorvastatin Calcium 40 mg 02/25/24 09:00 02/25/24 09:19 Atorvastatin 40 Mg Tablet PO 40 mg DAILY [facility] Administration Buspirone HCl 5 mg 02/24/24 09:00 02/25/24 09:19 Buspirone Hcl 5 Mg Tablet PO 5 mg BID [facility] Administration Cyclobenzaprine HCl 10 mg 02/23/24 19:21 Cyclobenzaprine Hcl 10 Mg Tablet PO TID PRN muscle spasm Fluoxetine HCl 40 mg 02/24/24 09:00 02/25/24 09:18 Fluoxetine Hcl 20 Mg Capsule PO 40 mg DAILY [facility] Administration Heparin Sodium (Porcine) 4,000 units 02/24/24 18:15 02/25/24 04:11 Heparin Sodium 5,000 Units/Ml Vial IV PUSH 4,000 units PRN PRN Administration aPTT less than 55 seconds Heparin Sodium (Porcine) 2,500 units 02/24/24 18:15 Heparin Sodium 5,000 Units/Ml Vial IV PUSH PRN PRN aPTT 55 - 70 seconds Heparin Sodium/Dextrose 25,000 units in 250 mls @ 11 mls/hr 02/24/24 18:15 02/25/24 04:11 Heparin Sodium/D5w 100 Units/Ml IV CONT 1,100 units/hr .[id number] [facility] 11 mls/hr Titration Protocol 1,100 UNITS/HR Morphine Sulfate 2 mg 02/23/24 19:22 02/24/24 18:22 Morphine Sulfate (*Crx) 2 Mg/Ml Inj IV PUSH 2 mg Q4H PRN Administration Chest Pain Nitroglycerin 0.4 mg 02/23/24 19:21 Nitroglycerin Sl 0.4 Mg Tablet SUBLINGUAL Q5MIN PRN Chest Pain Nitroglycerin 1 inch 02/24/24 18:20 02/25/24 05:30 Nitroglycerin Ointment 1 Inch Dose TRANSDERM 1 inch Q6HR [facility] Administration Ondansetron HCl 4 mg 02/23/24 19:22 Ondansetron Inj 4 Mg/2 Ml Vial IV PUSH Q6H PRN Nausea And Vomiting Pantoprazole Sodium 40 mg 02/24/24 17:00 02/25/24 09:19 Pantoprazole 40 Mg Tablet PO 40 mg BID [facility] Administration Perflutren Lipid Microsphere 0 ml 02/23/24 19:28 Perflutren Lipid Microspheres 1.5 Ml Vial Diluted To 10 Ml Total Volume IV PUSH 02/26/24 19:28 ONCE PRN adequate visualization Protocol Perflutren Lipid Microsphere 0 ml 02/24/24 14:11 Perflutren Lipid Microspheres 1.5 Ml Vial Diluted To 10 Ml Total Volume IV PUSH 02/27/24 14:12 ONCE PRN adequate visualization Protocol Quetiapine Fumarate 25 mg 02/23/24 21:00 02/24/24 20:32 Quetiapine Fumarate 25 Mg Tablet PO 25 mg QHS [facility]PH[facility] Administration Radiology Results: ITS Impressions Chest CTA 02/24/24 11:18 IMPRESSION: No evidence of pulmonary embolism Venous Doppler Study 02/24/24 12:22 IMPRESSION: No evidence of deep venous thrombosis of the lower extremities Chest X-Ray 02/24/24 13:41 IMPRESSION: Mild discoid atelectasis at right lung base; otherwise no active cardiopulmonary disease Labs Labs: Laboratory Results - last 24 hr 02/24/24 02/24/24 02/25/24 10:34 19:43 03:20 WBC 7.8 6.2 RBC 4.19 L 3.92 L Hgb 13.2 12.1 Hct 39.2 37.3 MCV 93.6 95.2 MCH 31.5 30.9 MCHC 33.7 32.4 RDW 12.8 12.8 Plt Count 222 192 MPV 10.4 10.3 Immature Gran % (Auto) 0.3 0.2 Neut % (Auto) 51.3 47.7 Lymph % (Auto) 33.1 36.2 [place] % (Auto) 8.1 8.6 H Eos % (Auto) 6.6 H 6.8 H Baso % (Auto) 0.6 0.5 Lymph # (Auto) 2.59 2.23 [place] # (Auto) 0.6 0.5 Eos # (Auto) 0.5 H 0.4 H Baso # (Auto) 0.1 0.0 Abs Immat Gran (auto) 0.02 0.01 Absolute Neuts (auto) 4.0 2.9 Absolute Nucleated RBC 0.000 0.000 Nucleated RBC % 0.0 0.0 PT 12.8 INR 0.9 APTT 32.2 44.9 H D-Dimer < 0.27 Sodium 137 Potassium 4.0 Chloride 107 Carbon Dioxide 27 Anion Gap 3 L BUN 17 Creatinine 0.58 L Estim Creat Clear Calc 96 Estimated GFR > 60 Glucose 90 Calcium 8.9 Total Bilirubin 0.4 AST 18 ALT 12 Alkaline Phosphatase 59 Total Protein 6.0 L Albumin 3.6 Triglycerides 217 H Cholesterol 194 LDL Cholesterol Direct 109 HDL Direct 48 Quality VTE Prophylaxis VTE prophylaxis: pharmacologic ordered
[2024-02-25] MEDS: MORPHINE SULFATE (*CRX) 2 MG/ML INJ IV PUSH (11:33)
--- NOTE | 2024-02-25 12:01 | ECG_ITS ---
Test Date: 2024-02-25 12:09:23 Measurements Intervals [place] Rate: 63 P: 24 VT: 178 QRS: -6 QRSD: 93 T: -12 QT: 441 QTc: 454 Interpretive Statements SINUS RHYTHM NONSPECIFIC T-WAVE ABNORMALITY ABNORMAL ECG Compared to ECG 02/25/2024 08:06:28 Prolonged QT interval no longer present T-wave abnormality still present Electronically Signed On 02-25-2024 15:34:20 [place] by David Shaw M.D.
--- NOTE | 2024-02-25 12:01 | P.PNCA_ITS ---
Progress Note: A&P Assessment and Plan (1) Chest pain: Code(s): R07.9 - Chest pain, unspecified Status: Acute Assessment and Plan: Chest pain better with nitroglycerin. Continue heparin drip, nitroglycerin, as pirin, morphine. Will add low-dose metoprolol 12.5 mg p.o. b.i.d.. Her chest pain recurred with walking to the bathroom. She should be at bedrest at this point. Will recheck an EKG now but EKG this morning showed no acute ST or T- wave abnormalities. Repeat a troponin stat also. NPO (2) Elevated BP without diagnosis of hypertension: Code(s): R03.0 - Elevated blood-pressure reading, without diagnosis of hypertension Status: Acute (3) Anxiety: Code(s): F41.9 - Anxiety disorder, unspecified Status: Acute Assessment and Plan: Overall needs better treatment (4) Tobacco abuse: Code(s): Z72.0 - Tobacco use Status: Acute Assessment and Plan: Tobacco cessation performed (5) Dyspnea: Code(s): R06.00 - Dyspnea, unspecified Status: Acute Assessment and Plan: Possibly anginal Subjective Date/time seen: 02/25/24 12:01 Interval history: 48-year-old admitted for chest pain. Troponins negative to this point. Date of service 02/25/2024: Wall motion abnormalities noted by echocardiogram. Transfer to IMU yesterday and started on heparin drip, nitroglycerin paste and other meds. She does think that the nitroglycerin did help. She did go to the bathroom within the past hour and redeveloped some pain. She was given some morphine and her symptoms are improving. Review of Systems Review of Systems: All systems reviewed & are unremarkable except as noted in HPI and below Constitutional: Constitutional: Denies body ache(s) and Denies excessive sweating Eyes: Eyes: Denies blurry vision ENT: Denies Normal hearing present Cardiovascular: Cardiovascular: Reports chest pain and Reports dyspnea Respiratory: Respiratory: Reports dyspnea Gastrointestinal: Gastrointestinal: Denies abdominal pain Genitourinary: Genitourinary: Denies hematuria Musculoskeletal: Musculoskeletal: Denies back pain Integumentary/Breasts: Skin/Breast: Denies erythema Neurologic: Denies Normal hearing present and Denies Abnormal speech present Psychiatric: Psychiatric: Reports anxiety Endocrine: Endocrine: Denies excessive sweating Hematologic/Lymphatic: Hematologic/Lymphatic: Denies easy bleeding Allergic/Immunologic: Allergic/Immunologic: Denies GI upset with certain foods Exam Narrative: alert oriented appears stated age Const: General: comfortable and no acute distress HENMT: Face/Nose/Sinus: Normal nares present Mouth: Yes moist mucous membranes Eyes: General: appearance normal, both eyes and all related structures Sclera: sclerae normal Neck: Neck: supple and no JVD Chest: Other: Mildly tender right upper chest wall Resp: Effort & Inspection: normal respiratory effort Auscultation: clear to auscultation bilaterally Cardio: Rate: regular rate Rhythm: regular rhythm Heart sounds: no murmurs and no rubs GI: Inspection: non-distended Auscultation: normal bowel sounds Skin: General skin exam: normal color Neuro: Cranial nerves: No Normal hearing present Speech: normal speech and No Abnormal speech present Extrem: General: normal to inspection Psych: Mental Status: mental status grossly normal Objective Data Vital Signs Vital Signs: Vital Signs - 24 hr 02/24/24 14:46 02/24/24 16:00 02/24/24 18:21 Temperature 36.6 C 36.1 C L Pulse Rate 80 69 72 Respiratory Rate 17 16 Blood Pressure 111/64 135/84 Pulse Oximetry 97 99 Oxygen Delivery 02/24/24 19:16 02/24/24 20:00 02/24/24 20:00 Temperature 36.1 C L Pulse Rate 72 66 Respiratory Rate 20 Blood Pressure 139/78 Pulse Oximetry 100 Oxygen Delivery Room Air 02/24/24 21:02 02/24/24 22:00 02/25/24 00:00 Temperature 36.6 C 36.7 C Pulse Rate 65 90 70 Respiratory Rate 18 18 Blood Pressure 124/78 112/63 Pulse Oximetry 100 100 Oxygen Delivery 02/25/24 00:00 02/25/24 00:00 02/25/24 02:00 Temperature Pulse Rate 81 79 Respiratory Rate Blood Pressure Pulse Oximetry Oxygen Delivery Room Air 02/25/24 04:00 02/25/24 04:00 02/25/24 04:00 Temperature 36.8 C Pulse Rate 74 74 Respiratory Rate 18 Blood Pressure 116/70 Pulse Oximetry 100 Oxygen Delivery Room Air 02/25/24 06:00 02/25/24 08:00 02/25/24 08:00 Temperature 36.4 C Pulse Rate 71 67 Respiratory Rate 16 Blood Pressure 117/63 Pulse Oximetry 96 Oxygen Delivery Room Air Intake/Output Intake/Output: Intake & Output 02/22/24 02/23/24 02/24/24 02/25/24 23:59 23:59 23:59 23:59 Intake Total 1280 632.8 Output Total 1 800 Balance 1279 -167.2 Meds/Results Medications: Active Medications Generic Name Dose Route Start Last Admin Trade Name Freq PRN Reason Stop Dose Admin Acetaminophen 650 mg 02/23/24 19:22 02/25/24 09:21 Acetaminophen 325 Mg Tablet PO 650 mg Q4H PRN Administration Mild Pain (1-3) or Fever Acetaminophen/Aspirin/Caffeine 1 tablet 02/23/24 19:21 02/25/24 07:22 Acetaminophen/Aspirin/Caffeine 250-250-65 Mg Tablet PO 1 tablet Q6H PRN Administration Pain Rated 1-3 Aspirin 81 mg 02/24/24 09:00 02/25/24 09:19 Aspirin 81 Mg Enteric Tablet PO 81 mg QAM STEPH[facility] Administration Atorvastatin Calcium 40 mg 02/25/24 09:00 02/25/24 09:19 Atorvastatin 40 Mg Tablet PO 40 mg DAILY [facility] Administration Buspirone HCl 5 mg 02/24/24 09:00 02/25/24 09:19 Buspirone Hcl 5 Mg Tablet PO 5 mg BID [facility] Administration Cyclobenzaprine HCl 10 mg 02/23/24 19:21 Cyclobenzaprine Hcl 10 Mg Tablet PO TID PRN muscle spasm Fluoxetine HCl 40 mg 02/24/24 09:00 02/25/24 09:18 Fluoxetine Hcl 20 Mg Capsule PO 40 mg DAILY [facility] Administration Heparin Sodium (Porcine) 4,000 units 02/24/24 18:15 02/25/24 04:11 Heparin Sodium 5,000 Units/Ml Vial IV PUSH 4,000 units PRN PRN Administration aPTT less than 55 seconds Heparin Sodium (Porcine) 2,500 units 02/24/24 18:15 Heparin Sodium 5,000 Units/Ml Vial IV PUSH PRN PRN aPTT 55 - 70 seconds Heparin Sodium/Dextrose 25,000 units in 250 mls @ 10 mls/hr 02/24/24 18:15 02/25/24 11:27 Heparin Sodium/D5w 100 Units/Ml IV CONT 1,000 units/hr .Q24H [facility] 10 mls/hr Titration Protocol 1,000 UNITS/HR Morphine Sulfate 2 mg 02/23/24 19:22 02/25/24 11:33 Morphine Sulfate (*Crx) 2 Mg/Ml Inj IV PUSH 2 mg Q4H PRN Administration Chest Pain Nitroglycerin 0.4 mg 02/23/24 19:21 Nitroglycerin Sl 0.4 Mg Tablet SUBLINGUAL Q5MIN PRN Chest Pain Nitroglycerin 1 inch 02/24/24 18:20 02/25/24 11:32 Nitroglycerin Ointment 1 Inch Dose TRANSDERM 1 inch Q6HR [facility] Administration Ondansetron HCl 4 mg 02/23/24 19:22 Ondansetron Inj 4 Mg/2 Ml Vial IV PUSH Q6H PRN Nausea And Vomiting Pantoprazole Sodium 40 mg 02/24/24 17:00 02/25/24 09:19 Pantoprazole 40 Mg Tablet PO 40 mg BID [facility] Administration Perflutren Lipid Microsphere 0 ml 02/23/24 19:28 Perflutren Lipid Microspheres 1.5 Ml Vial Diluted To 10 Ml Total Volume IV PUSH 02/26/24 19:28 ONCE PRN adequate visualization Protocol Perflutren Lipid Microsphere 0 ml 02/24/24 14:11 Perflutren Lipid Microspheres 1.5 Ml Vial Diluted To 10 Ml Total Volume IV PUSH 02/27/24 14:12 ONCE PRN adequate visualization Protocol Quetiapine Fumarate 25 mg 02/23/24 21:00 02/24/24 20:32 Quetiapine Fumarate 25 Mg Tablet PO 25 mg QHS STEPHON Administration Radiology Results: ITS Impressions Chest CTA 02/24/24 11:18 IMPRESSION: No evidence of pulmonary embolism Venous Doppler Study 02/24/24 12:22 IMPRESSION: No evidence of deep venous thrombosis of the lower extremities Chest X-Ray 02/24/24 13:41 IMPRESSION: Mild discoid atelectasis at right lung base; otherwise no active cardiopulmonary disease Labs Labs: Laboratory Results - last 24 hr 02/24/24 02/25/24 02/25/24 19:43 03:20 10:10 WBC 7.8 6.2 RBC 4.19 L 3.92 L Hgb 13.2 12.1 Hct 39.2 37.3 MCV 93.6 95.2 MCH 31.5 30.9 MCHC 33.7 32.4 RDW 12.8 12.8 Plt Count 222 192 MPV 10.4 10.3 Immature Gran % (Auto) 0.3 0.2 Neut % (Auto) 51.3 47.7 Lymph % (Auto) 33.1 36.2 [place] % (Auto) 8.1 8.6 H Eos % (Auto) 6.6 H 6.8 H Baso % (Auto) 0.6 0.5 Lymph # (Auto) 2.59 2.23 [place] # (Auto) 0.6 0.5 Eos # (Auto) 0.5 H 0.4 H Baso # (Auto) 0.1 0.0 Abs Immat Gran (auto) 0.02 0.01 Absolute Neuts (auto) 4.0 2.9 Absolute Nucleated RBC 0.000 0.000 Nucleated RBC % 0.0 0.0 PT 12.8 INR 0.9 APTT 32.2 44.9 H 122.0 H Sodium 137 Potassium 4.0 Chloride 107 Carbon Dioxide 27 Anion Gap 3 L BUN 17 Creatinine 0.58 L Estim Creat Clear Calc 96 Estimated GFR > 60 Glucose 90 Calcium 8.9 Total Bilirubin 0.4 AST 18 ALT 12 Alkaline Phosphatase 59 Total Protein 6.0 L Albumin 3.6 Triglycerides 217 H Cholesterol 194 LDL Cholesterol Direct 109 HDL Direct 48
[2024-02-25 12:41] LABS: Troponin I < 0.012 ng/mL (0.000-0.034)
--- NOTE | 2024-02-25 14:44 | P.CONGI_ITS ---
Assessment and Plan Assessment and plan (1) Chest pain: Code(s): R07.9 - Chest pain, unspecified Status: Acute Assessment and Plan: cardiology on board, noted abnormal wall motion by echo, pain improved after NGT and possible unstable angina no signs of bleeding with normal h/h, no nausea she has underlying GERD after previous gastric sleeve I will recommend continue management for gerd with ppi, carafate given possible cardiac source of her symptoms I think that EGD is not urgent and this can be done as outpatient (2) Unstable angina: Code(s): I20.0 - Unstable angina Status: Acute Assessment and Plan: by cardiology on heparin gtt (3) GERD (gastroesophageal reflux disease): Code(s): K21.9 - Gastro-esophageal reflux disease without esophagitis Status: Acute Assessment and Plan: ppi (4) History of bariatric surgery: Code(s): Z98.84 - Bariatric surgery status Status: Acute (5) Dyspnea: Code(s): R06.00 - Dyspnea, unspecified Status: Acute (6) Tobacco abuse: Code(s): Z72.0 - Tobacco use Status: Acute GI Consult Note Consult date/time: 02/25/24 14:44 Reason for consult: gerd, chest pain HPI: Sara Handley is a 48 year old female with past medical history of migraines, tobacco abuse, depression, anxiety, gastric ulcer about 8 years ago when had last EGD then had gastric sleeve surgery with more GERD symptoms using omeprazole OTC daily and tums as needed. She was admitted to hospital with increased shortness of breath and new onset of chest pain. Evaluated by cardiology, chest pain improved after NTG, also had wall motion abnormalities noted by echocardiogram, negative troponin. Patient had similar episode when had GI issue. She denies nausea or abdominal pain. She is managed as angina with heparin gtt. Review of Systems 2 Constitutional: Constitutional: Denies chills Eyes: Eyes: Denies blurry vision ENT: Reports Normal hearing present Cardiovascular: Cardiovascular: Reports chest pain Respiratory: Respiratory: Reports dyspnea on exertion Gastrointestinal: Gastrointestinal: Denies abdominal pain and Denies nausea Genitourinary: Genitourinary: Denies dysuria Musculoskeletal: Musculoskeletal: Denies neck pain Integumentary/Breasts: Skin/Breast: Denies rash Neurologic: Denies Abnormal speech present Psychiatric: Psychiatric: Denies behavioral changes [facility] Past Medical History Medical History Thoracic back pain Migraines Vitamin D deficiency Vitamin deficiency Insomnia Screening mammogram for breast cancer Tobacco abuse Elevated BP without diagnosis of hypertension Encounter to establish care History of abdominal hernia Upper abdominal pain Major depression Anemia Muscle spasm Anxiety Allergies Cholecystectomy planned Depression GERD (gastroesophageal reflux disease) Surgical History Surgical History History of hysterectomy History of bariatric surgery Family History Family History Father Family history of lung cancer Hypertension Heart disease Grandparent Cancer Hypertension Depression Diabetes mellitus Anxiety Acute myocardial infarction Heart disease Mother Hypertension Depression Anxiety Sibling Depression Anxiety Other Cerebrovascular accident Family history of allergic disorder Family history of cardiovascular disease Social History Social History Smoking packs per day: 1 Smoking cigarettes per day: 20.0 Years smoked: 33 Smoking pack-years: 33.00 Smoking status: Current every day smoker Tobacco type: cigarettes Alcohol intake: current Drinks per week: 1 Alcohol use details: Rarely Substance use: former Substance use type: marijuana Do You Feel Safe in your Home?: Yes Lack of Transportation: No Lack of Food: Never True Current Housing: I Have Housing Concerned About Future Housing: No Difficulty Paying Gas/Electric Bills: No Difficulty Paying for Meds: No Currently Unemployed: No Education: High School Diploma/GED Difficulty w/ Childcare or Family Care: No Spiritual care concerns: No Meds Home Medications and Allergies Home Medications ?Medication ?Instructions ?Recorded ?Confirmed ?Type ergocalciferol (vitamin D2) 1,250 1,250 mcg PO WEEKLY #13 caps 07/12/22 02/23/24 Rx mcg (50,000 unit) capsule fluoxetine 40 mg capsule 40 mg PO DAILY #30 caps 07/12/22 02/23/24 Rx quetiapine 25 mg tablet (Seroquel) 25 mg PO QHS #30 tabs 07/12/22 02/23/24 Rx buspirone 5 mg tablet See Rx Instructions PO BID #180 10/03/22 02/23/24 Rx tabs cyclobenzaprine 10 mg tablet 10 mg PO TID PRN muscle spasm #30 10/09/22 02/23/24 Rx tabs esomeprazole magnesium 40 mg 40 mg PO Q24H 11/11/22 02/23/24 History capsule,delayed release aspirin 81 mg tablet,delayed 81 mg PO QAM #1 tablet 02/23/24 02/23/24 Rx release nicotine 21 mg/24 hr daily 1 patch transdermal DAILY #1 ea 02/23/24 02/23/24 Rx transdermal patch (Nicoderm CQ) nitroglycerin 0.4 mg sublingual 0.4 mg sublingual Q5MIN PRN Chest 02/23/24 02/23/24 Rx tablet (Nitrostat) Pain #1 tablet Allergies Allergy/AdvReac Type Severity Reaction Status Date / Time metformin Allergy Unknown Other Verified 02/22/24 20:10 [email or web address] Allergy Unknown Other Verified 02/22/24 20:10 Vital Signs Vital Signs - 24 hr 02/24/24 14:46 02/24/24 16:00 02/24/24 18:21 Temperature 97.9 F 97.0 F L Pulse Rate 80 69 72 Respiratory Rate 17 16 Blood Pressure 111/64 135/84 Pulse Oximetry 97 99 Oxygen Delivery 02/24/24 19:16 02/24/24 20:00 02/24/24 20:00 Temperature 97.0 F L Pulse Rate 72 66 Respiratory Rate 20 Blood Pressure 139/78 Pulse Oximetry 100 Oxygen Delivery Room Air 02/24/24 21:02 02/24/24 22:00 02/25/24 00:00 Temperature 97.8 F 98.1 F Pulse Rate 65 90 70 Respiratory Rate 18 18 Blood Pressure 124/78 112/63 Pulse Oximetry 100 100 Oxygen Delivery 02/25/24 00:00 02/25/24 00:00 02/25/24 02:00 Temperature Pulse Rate 81 79 Respiratory Rate Blood Pressure Pulse Oximetry Oxygen Delivery Room Air 02/25/24 04:00 02/25/24 04:00 02/25/24 04:00 Temperature 98.2 F Pulse Rate 74 74 Respiratory Rate 18 Blood Pressure 116/70 Pulse Oximetry 100 Oxygen Delivery Room Air 02/25/24 06:00 02/25/24 08:00 02/25/24 08:00 Temperature 97.6 F Pulse Rate 71 67 Respiratory Rate 16 Blood Pressure 117/63 Pulse Oximetry 96 Oxygen Delivery Room Air 02/25/24 12:00 Temperature 97.8 F Pulse Rate 66 Respiratory Rate 24 H Blood Pressure 122/83 Pulse Oximetry 98 Oxygen Delivery Exam 2 Narrative: alert oriented appears stated age Const: General: comfortable and no acute distress HENMT: Face/Nose/Sinus: Normal nares present Mouth: Yes moist mucous membranes Eyes: General: appearance normal, both eyes and all related structures S clera: sclerae normal Neck: Neck: supple Chest: Other: Mildly tender right upper chest wall Resp: Effort & Inspection: normal respiratory effort Auscultation: clear to auscultation bilaterally Cardio: Rate: regular rate Rhythm: regular rhythm Heart sounds: no rubs GI: Inspection: non-distended GI Palp: Yes Soft to palpation and No Guarding due to palpation present (GI) Auscultation: normal bowel sounds Skin: General skin exam: normal color Neuro: Cranial nerves: No Normal hearing present Speech: normal speech and No Abnormal speech present Extrem: General: normal to inspection Psych: Mental Status: mental status grossly normal Results Labs 02/25/24 03:20 02/25/24 03:20 Labs: Short CBC 02/24/24 02/25/24 Range/Units 19:43 03:20 WBC 7.8 6.2 (4.5-10.0) K/mm3 Hgb 13.2 12.1 (12.0-15.0) g/dL Hct 39.2 37.3 (37.0-47.0) % Plt Count 222 192 (150-375) k/mm3 BMP 02/25/24 03:20 Sodium 137 Potassium 4.0 Chloride 107 Carbon Dioxide 27 BUN 17 Creatinine 0.58 L Glucose 90 Calcium 8.9 Cardiac Enzymes 02/25/24 Range/Units 12:13 Troponin I < 0.012 (0.000-0.034) ng/mL Liver Function 02/25/24 Range/Units 03:20 Total Bilirubin 0.4 (0.2-1.3) mg/dL AST 18 (14-36) U/L ALT 12 (6-35) U/L Alkaline Phosphatase 59 (38-126) U/L Albumin 3.6 (3.5-5.1) g/dL
--- NOTE | 2024-02-25 16:06 | PC.NURSE ---
1550: Pt reports palpitations, SOB, and dizziness while resting in bed. Denies chest pain. BP 122/83, RR 24, HR 99. 1600: Pt reassessed. Continues to have SOB and palpitations. Reports symptoms are decreasing in severity but are still present. Dr. Valeria solorzano.
--- NOTE | 2024-02-25 16:30 | PC.NURSE ---
Spoke with Dr. Shaw. New orders noted for trop STAT and 0.5 of xanax. Pt reports symptoms continue to lesson. RR 18. Denies pain.
[2024-02-25] MEDS: MAGNESIUM HYDROXIDE SUSP 30 ML UDC PO (16:53)
[2024-02-25] MEDS: ALPRAZolam (*CRX) 0.5 MG TABLET PO (16:53)
[2024-02-25 17:10] LABS: Troponin I < 0.012 ng/mL (0.000-0.034)
[2024-02-25 17:13] LABS: Partial Thromboplastin Time 68.5 Seconds (22.3-36.8)
[2024-02-25] MEDS: HEPARIN SODIUM 5,000 UNITS/ML VIAL 2500 UNITS IV PUSH (18:06)
[2024-02-25] MEDS: QUEtiapine FUMARATE 25 MG TABLET PO (20:25)
[2024-02-25] MEDS: HEPARIN SOD/D5W 100 UNITS/ML 25,000 UNITS/250 ML BAG 11 UNITS IV CONT (21:50)
[2024-02-26] VITALS (18 sets, daily range): BP systolic 104–141; BP diastolic 55–87; PULSE 58–97; RESP 12–16; TEMP 36.4–36.6; O2SAT 94–99
[2024-02-26 01:02] LABS: Partial Thromboplastin Time 89.2 Seconds (22.3-36.8)
[2024-02-26 04:37] LABS: Basophils Percent Auto 0.5 % (0.2-1.2); Eosinophils Absolute Auto 0.4 K/mm3 (0-0.3); Eosinophils Percent Auto 6.1 % (0-4.4); Hematocrit 35.6 % (37.0-47.0); Hemoglobin 11.9 g/dL (12.0-15.0); Immature Granulocyte Absolute 0.01 K/mm3 (0.00-0.031); Immature Granulocyte Percent A 0.2 % (0-0.5); Lymphocytes Absolute Auto 2.48 K/mm3 (0.9-3.2); Lymphocytes Percent Auto 39.9 % (18.3-44.2); Mean Corpuscular HGB Conc 33.4 g/dl (32-36); Mean Corpuscular Hemoglobin 31.6 pg (26-34); Mean Corpuscular Volume 94.7 fl (80-100); Mean Platelet Volume 10.6 fl (7.4-10.4); Monocytes Absolute Auto 0.6 K/mm3 (0.1-0.6); Monocytes Percent Auto 9.8 % (2.6-8.5); Neutrophils Absolute Auto 2.7 K/mm3 (1.3-6.7); Neutrophils Percent Auto 43.5 % (45.5-73.1); Platelet Count Result 179 k/mm3 (150-375); Red Blood Count 3.76 M/mm3 (4.2-5.4); Red Cell Distribution Width 12.8 % (11.5-14.5); White Blood Count 6.2 K/mm3 (4.5-10.0)
[2024-02-26 04:51] LABS: Alanine Aminotransferase 12 U/L (6-35); Albumin Level 3.6 g/dL (3.5-5.1); Alkaline Phosphatase 64 U/L (38-126); Anion Gap 3 mmol/L (4-12); Aspartate Amino Transferase 16 U/L (14-36); Bilirubin,Total 0.3 mg/dL (0.2-1.3); Blood Urea Nitrogen 16 mg/dL (7-17); Calcium 8.9 mg/dL (8.4-10.2); Carbon Dioxide 27 mmol/L (22-30); Chloride 110 mmol/L (98-107); Estimated CRCL calculation 102 ml/min; Estimated Glomerular Filt Rate > 60; Glucose 88 mg/dL (65-110); Potassium 4.2 mmol/L (3.4-5.0); Sodium 140 mmol/L (137-145)
[2024-02-26] MEDS: ACETAMINOPHEN 325 MG TABLET 650 MG PO (05:13)
[2024-02-26] MEDS: NITROGLYCERIN OINTMENT 1 INCH DOSE TRANSDERM (05:14)
[2024-02-26 07:29] LABS: Partial Thromboplastin Time 98.4 Seconds (22.3-36.8)
[2024-02-26] MEDS: ACETAMINOPHEN/ASPIRIN/CAFFEINE 250-250-65 MG TABLET 1 TABLET PO (08:51)
[2024-02-26] MEDS: FLUoxetine HCL 20 MG CAPSULE 40 MG PO (08:52)
[2024-02-26] MEDS: PANTOPRAZOLE 40 MG TABLET PO ×2 (08:53→17:39)
[2024-02-26] MEDS: busPIRone HCL 5 MG TABLET PO ×2 (08:53→17:39)
[2024-02-26] MEDS: ATORVASTATIN 40 MG TABLET PO (08:53)
[2024-02-26] MEDS: ASPIRIN 81 MG ENTERIC TABLET PO (08:53)
--- NOTE | 2024-02-26 09:10 | P.PNIM_ITS ---
Progress Note: A&P Assessment and Plan (1) Angina at rest: Code(s): I20.89 - Other forms of angina pectoris Status: Acute Assessment and Plan: reporting chest associated shortness that is not relieved with rest * she states she felt better after she was given the morphine and the nitroglycerin in the ED. She states that the pain in her chest was relieved and she was able to breathe better however today she reporting shortness a breath and chest pain that is described as burning in nature and radiates to her mid back. * CTA of the chest and abdomen was negative for dissection or PE and only showed acute gastritis * EKG showing sinus rhythm with a rate of 84, QTC 433--no ST elevation * Troponin negative x2 * will continue morphine and nitroglycerin p.r.n. for chest pain * Cardiology consulted and ruled out unstable angina * D-dimer < 0.27 * repeat chest CTA today to rule out PE per Dr. Shaw request even though the first one did not show PE or dissection was also negative * venous dopplers negative for DVT * Will also obtain venous dopplers to rule out DVT * Stress testing ordered * Echo ordered STAT * Heart healthy diet ordered * Lipid panel showing total cholesterol 204, LDL 131, HDL 53 * Will add Protonix for any possible acid reflux she may have. She was noted to have a sliding hiatal hernia on CTA of the chest * Will obtain chest x-ray to rule out rib fracture 02/24 * Echo showing anterior wall, and apical lateral wall hypokinesis, LV systolic function was normal with an estimated EF of 65-70%, grade 1 diastolic dysfunction. * Continue Heparin infusion per ACS protocol * Cardiology following, ? plan for cardiac cath tomorrow * EKG today shown NSR with nonspecific T wave abnormality, prolonged QTc 464, rate of 69 02/25 * Left heart cath today was essentially normal. No stents needed. * Continue with aspirin and atorvastatin * Heparin infusion discontinued (2) Dyspnea: Code(s): R06.00 - Dyspnea, unspecified Status: Acute Assessment and Plan: Differential including anxiety/panic attack versus stable angina versus unstable angina * Was given Ativan, Morphine, and Nitroglycerin while in the ER (3) Migraines: Code(s): G43.909 - Migraine, unspecified, not intractable, without status migrainosus Status: Acute Assessment and Plan: * patient given 1 g of Tylenol, 325 mg of aspirin and is drinking a caffeinated soda * Excedrin migraine ordered (4) GERD (gastroesophageal reflux disease): Code(s): K21.9 - Gastro-esophageal reflux disease without esophagitis Status: Acute Assessment and Plan: * Will start protonix 02/24 * Continue protonix BID * Symptoms have improved since starting Protonix * Reports that her burning pain goes away after eating, concerns for duodenal ulcer * GI consult 02/25 * GI recommending outpatient EGD * Continue protonix BID and carafate with meals (5) Elevated BP without diagnosis of hypertension: Code(s): R03.0 - Elevated blood-pressure reading, without diagnosis of hypertension Status: Acute Assessment and Plan: * blood pressures ranging 116/76 to 130/75 * not on any current home meds for blood pressures (6) Anxiety: Code(s): F41.9 - Anxiety disorder, unspecified Status: Acute Assessment and Plan: * Continue Buspar * Xanax PRN (7) Major depression: Code(s): F32.9 - Major depressive disorder, single episode, unspecified Status: Acute Assessment and Plan: * Continue Prozac Time Spent With Patient Time with patient: 25 - 35 minutes Subjective Date/time seen: 02/26/24 09:10 Interval history: Interval history: This is a 48-year-old female significant past medical history of migraines, insomnia, vitamin-D deficiency, tobacco abuse, depression, anemia, anxiety, GERD, gastric sleeve surgery who presented to the hospital with increased shortness of breath and dyspnea. Patient originally presented to [facility] and was an inpatient transfer to [facility] for cardiac work up. Patient states that she has been under a lot of stress since and is dealing with some family issues. She noticed that she has become more short of breath just with talking and Started having right-sided chest pain that radiates to her back that does not go away with rest. She was treated for anxiety in the past however she stopped all of her medications about 8 months ago due to weight gain. She states she feels anxious all the time however even with her anxiety in the past she has never had chest pain and shortness of breath associated with it. She states she has a family history of coronary artery disease and has had a few family members with MIs and congestive heart failure. She admits to smoking 1 pack of cigarettes per day. She did receive nitroglycerin and morphine in the ED which did relieve her chest pain. She states after that dose she was able to take a deep breath for the 1st time in a while. She denies any fever, chills, nausea, vomiting, diarrhea, abdominal pain. She denies any recent sick contacts. Workup in the hospital included a chest / abdomen CTA which showed moderate gastritis, no dissection. Initial labs showed a normal white blood cell count of 9.8, potassium 3.4, magnesium 1.9 , troponin negative x2, proBNP was only 94. Respiratory panel was negative for influenza A and B, RSV, COVID. EKG showed sinus rhythm with a rate of 84, QTC 435, no ST elevation. Patient was given 4 mg IV push morphine, Ativan, Maalox, and nitroglycerin while in the ED at [place]. Cardiology consulted. Subjective: patient reported lightheadedness and dizziness with associated shortness of breath and chest pain late yesterday afternoon early evening. She was noted to have a heart rate over 100 and lasted for a few minutes before it went away. She has not had another episode like that since that time. Labs reviewed Review of Systems Review of Systems: All systems reviewed & are unremarkable except as noted in HPI and below Constitutional: Constitutional: Reports as per HPI and Reports no additional constitutional complaints Eyes: Eyes: Reports as per HPI and Reports no additional eye complaints ENT: Reports system reviewed and no additional complaints, except as documented and Reports as per HPI Cardiovascular: Cardiovascular: Reports as per HPI and Reports no additional cardiovascular complaints Respiratory: Respiratory: Reports as per HPI and Reports no additional respiratory complaints Gastrointestinal: Gastrointestinal: Reports as per HPI and Reports no additional gastrointestinal complaints Genitourinary: Genitourinary: Reports no additional female genitourinary complaints and Reports as per HPI Musculoskeletal: Musculoskeletal: Reports no additional musculoskeletal complaints and Reports as per HPI Integumentary/Breasts: Skin/Breast: Reports system reviewed and no additional complaints, except as docu and Reports as per HPI Neurologic: Reports system reviewed and no additional complaints, except as documented and Reports as per HPI Psychiatric: Psychiatric: Reports no additional psychiatric complaints and Reports as per HPI Exam Narrative: General: In no ac kirti distress, well nourished Cardiac : Normal S1 and S2 . RRR, No murmur, gallops or fricti on rubs, periphera l pulses intact. S till reporting tita st discomfort Resp iratory: Lungs laura ar to auscultation , no adventitious lung sounds, curre ntly on room air. SOB with rest and exertion. Gastroi ntestinal: soft, n on-distended, non- tender, normoactiv e bowel sounds. : voiding without difficulty. Neuro: Alert and oriente d x4 Objective Data Vital Signs Vital Signs: Vital Signs - 24 hr 02/25/24 10:00 02/25/24 12:00 02/25/24 12:00 Temperature 97.8 F Pulse Rate 67 66 78 Respiratory Rate 24 H Blood Pressure 122/83 Pulse Oximetry 98 Oxygen Delivery 02/25/24 12:00 02/25/24 14:00 02/25/24 16:00 Temperature 97.9 F Pulse Rate 87 82 Respiratory Rate 16 Blood Pressure 118/57 L Pulse Oximetry 98 Oxygen Delivery Room Air 02/25/24 16:00 02/25/24 16:00 02/25/24 18:00 Temperature Pulse Rate 83 83 Respiratory Rate Blood Pressure Pulse Oximetry Oxygen Delivery Room Air 02/25/24 20:00 02/25/24 20:00 02/25/24 20:00 Temperature 97.6 F Pulse Rate 80 86 Respiratory Rate 14 Blood Pressure 110/74 Pulse Oximetry 98 Oxygen Delivery Room Air 02/25/24 22:00 02/25/24 23:38 02/25/24 23:56 Temperature 97.7 F Pulse Rate 94 95 Respiratory Rate 16 Blood Pressure 101/59 L Pulse Oximetry 95 95 Oxygen Delivery Room Air 02/26/24 00:00 02/26/24 02:00 02/26/24 04:00 Temperature Pulse Rate 80 75 Respiratory Rate Blood Pressure Pulse Oximetry 97 Oxygen Delivery Room Air 02/26/24 04:00 02/26/24 04:00 02/26/24 06:00 Temperature 97.8 F Pulse Rate 72 72 67 Respiratory Rate 16 Blood Pressure 104/55 L Pulse Oximetry 97 Oxygen Delivery Intake/Output Intake/Output: Intake & Output 02/23/24 02/24/24 02/25/24 02/26/24 23:59 23:59 23:59 23:59 Intake Total 1280 1350.0 451.7 Output Total 1 800 Balance 1279 550.0 451.7 Meds/Results Medications: Active Medications Generic Name Dose Route Start Last Admin Trade Name Freq PRN Reason Stop Dose Admin Acetaminophen 650 mg 02/23/24 19:22 02/26/24 05:13 Acetaminophen 325 Mg Tablet PO 650 mg Q4H PRN Administration Mild Pain (1-3) or Fever Acetaminophen/Aspirin/Caffeine 1 tablet 02/23/24 19:21 02/26/24 08:51 Acetaminophen/Aspirin/Caffeine 250-250-65 Mg Tablet PO 1 tablet Q6H PRN Administration Pain Rated 1-3 Aspirin 81 mg 02/24/24 09:00 02/26/24 08:53 Aspirin 81 Mg Enteric Tablet PO 81 mg QAM STEPHON Administration Atorvastatin Calcium 40 mg 02/25/24 09:00 02/26/24 08:53 Atorvastatin 40 Mg Tablet PO 40 mg DAILY [facility] Administration Buspirone HCl 5 mg 02/24/24 09:00 02/26/24 08:53 Buspirone Hcl 5 Mg Tablet PO 5 mg BID [facility] Administration Cyclobenzaprine HCl 10 mg 02/23/24 19:21 Cyclobenzaprine Hcl 10 Mg Tablet PO TID PRN muscle spasm Fluoxetine HCl 40 mg 02/24/24 09:00 02/26/24 08:52 Fluoxetine Hcl 20 Mg Capsule PO 40 mg DAILY [facility] Administration Heparin Sodium (Porcine) 4,000 units 02/24/24 18:15 02/25/24 04:11 Heparin Sodium 5,000 Units/Ml Vial IV PUSH 4,000 units PRN PRN Administration aPTT less than 55 seconds Heparin Sodium (Porcine) 2,500 units 02/24/24 18:15 02/25/24 18:06 Heparin Sodium 5,000 Units/Ml Vial IV PUSH 2,500 units PRN PRN Administration aPTT 55 - 70 seconds Heparin Sodium/Dextrose 25,000 units in 250 mls @ 11 mls/hr 02/24/24 18:15 02/26/24 07:05 Heparin Sodium/D5w 100 Units/Ml IV CONT 1,100 units/hr .[id number] [facility] 11 mls/hr Titration Protocol 1,100 UNITS/HR Morphine Sulfate 2 mg 02/23/24 19:22 02/25/24 11:33 Morphine Sulfate (*Crx) 2 Mg/Ml Inj IV PUSH 2 mg Q4H PRN Administration Chest Pain Nitroglycerin 0.4 mg 02/23/24 19:21 Nitroglycerin Sl 0.4 Mg Tablet SUBLINGUAL Q5MIN PRN Chest Pain Nitroglycerin 1 inch 02/24/24 18:20 02/26/24 05:14 Nitroglycerin Ointment 1 Inch Dose TRANSDERM 1 inch Q6HR [facility] Administration Ondansetron HCl 4 mg 02/23/24 19:22 Ondansetron Inj 4 Mg/2 Ml Vial IV PUSH Q6H PRN Nausea And Vomiting Pantoprazole Sodium 40 mg 02/24/24 17:00 02/26/24 08:53 Pantoprazole 40 Mg Tablet PO 40 mg BID [facility] Administration Perflutren Lipid Microsphere 0 ml 02/23/24 19:28 Perflutren Lipid Microspheres 1.5 Ml Vial Diluted To 10 Ml Total Volume IV PUSH 02/26/24 19:28 ONCE PRN adequate visualization Protocol Perflutren Lipid Microsphere 0 ml 02/24/24 14:11 Perflutren Lipid Microspheres 1.5 Ml Vial Diluted To 10 Ml Total Volume IV PUSH 02/27/24 14:12 ONCE PRN adequate visualization Protocol Quetiapine Fumarate 25 mg 02/23/24 21:00 02/25/24 20:25 Quetiapine Fumarate 25 Mg Tablet PO 25 mg QHS [facility] Administration Sucralfate 1 gm 02/26/24 11:30 Sucralfate 1 Gm Tablet PO ACHS [facility] Radiology Results: ITS Impressions Chest CTA 02/24/24 11:18 IMPRESSION: No evidence of pulmonary embolism Venous Doppler Study 02/24/24 12:22 IMPRESSION: No evidence of deep venous thrombosis of the lower extremities Chest X-Ray 02/24/24 13:41 IMPRESSION: Mild discoid atelectasis at right lung base; otherwise no active cardiopulmonary disease Labs Labs: Laboratory Results - last 24 hr 02/25/24 02/25/24 02/25/24 10:10 12:13 16:43 WBC RBC Hgb Hct MCV MCH MCHC RDW Plt Count MPV Immature Gran % (Auto) Neut % (Auto) Lymph % (Auto) [place] % (Auto) Eos % (Auto) Baso % (Auto) Lymph # (Auto) [place] # (Auto) Eos # (Auto) Baso # (Auto) Abs Immat Gran (auto) Absolute Neuts (auto) Absolute Nucleated RBC Nucleated RBC % APTT 122.0 H 68.5 H Sodium Potassium Chloride Carbon Dioxide Anion Gap BUN Creatinine Estim Creat Clear Calc Estimated GFR Glucose Calcium Total Bilirubin AST ALT Alkaline Phosphatase Troponin I < 0.012 < 0.012 Total Protein Albumin 02/26/24 02/26/24 02/26/24 00:41 04:22 07:05 WBC 6.2 RBC 3.76 L Hgb 11.9 L Hct 35.6 L MCV 94.7 MCH 31.6 MCHC 33.4 RDW 12.8 Plt Count 179 MPV 10.6 H Immature Gran % (Auto) 0.2 Neut % (Auto) 43.5 L Lymph % (Auto) 39.9 [place] % (Auto) 9.8 H Eos % (Auto) 6.1 H Baso % (Auto) 0.5 Lymph # (Auto) 2.48 [place] # (Auto) 0.6 Eos # (Auto) 0.4 H Baso # (Auto) 0.0 Abs Immat Gran (auto) 0.01 Absolute Neuts (auto) 2.7 Absolute Nucleated RBC 0.000 Nucleated RBC % 0.0 APTT 89.2 H 98.4 H Sodium 140 Potassium 4.2 Chloride 110 H Carbon Dioxide 27 Anion Gap 3 L BUN 16 Creatinine 0.54 L Estim Creat Clear Calc 102 Estimated GFR > 60 Glucose 88 Calcium 8.9 Total Bilirubin 0.3 AST 16 ALT 12 Alkaline Phosphatase 64 Troponin I Total Protein 6.0 L Albumin 3.6 Quality VTE Prophylaxis VTE prophylaxis: pharmacologic ordered
--- NOTE | 2024-02-26 11:55 | P.SEDATION_ITS ---
Moderate Sedation Note-Pt Data Patient Data Diagnosis: Chest pain, abnormal echo Present Complaint: chest pain Procedure to be performed/Plan: coronary angiogram,, possible stenting Allergies Allergy/AdvReac Type Severity Reaction Status Date / Time metformin Allergy Unknown Other Verified 02/22/24 20:10 [email or web address] Allergy Unknown Other Verified 02/22/24 20:10 Home Medications ?Medication ?Instructions ?Recorded ?Confirmed ?Type ergocalciferol (vitamin D2) 1,250 1,250 mcg PO WEEKLY #13 caps 07/12/22 02/23/24 Rx mcg (50,000 unit) capsule fluoxetine 40 mg capsule 40 mg PO DAILY #30 caps 07/12/22 02/23/24 Rx quetiapine 25 mg tablet (Seroquel) 25 mg PO QHS #30 tabs 07/12/22 02/23/24 Rx buspirone 5 mg tablet See Rx Instructions PO BID #180 10/03/22 02/23/24 Rx tabs cyclobenzaprine 10 mg tablet 10 mg PO TID PRN muscle spasm #30 10/09/22 02/23/24 Rx tabs esomeprazole magnesium 40 mg 40 mg PO Q24H 11/11/22 02/23/24 History capsule,delayed release aspirin 81 mg tablet,delayed 81 mg PO QAM #1 tablet 02/23/24 02/23/24 Rx release nicotine 21 mg/24 hr daily 1 patch transdermal DAILY #1 ea 02/23/24 02/23/24 Rx transdermal patch (Nicoderm CQ) nitroglycerin 0.4 mg sublingual 0.4 mg sublingual Q5MIN PRN Chest 02/23/24 02/23/24 Rx tablet (Nitrostat) Pain #1 tablet Current Medications: Active Medications Acetaminophen (Acetaminophen 325 Mg Tablet) 650 mg PO Q4H PRN PRN Reason: Mild Pain (1-3) or Fever Last Admin: 02/26/24 05:13 Dose: 650 mg Acetaminophen/Aspirin/Caffeine (Acetaminophen/Aspirin/Caffeine 250-250-65 Mg Tablet) 1 tablet PO Q6H PRN PRN Reason: Pain Rated 1-3 Last Admin: 02/26/24 08:51 Dose: 1 tablet Aspirin (Aspirin 81 Mg Enteric Tablet) 81 mg PO QAM STEPHON Last Admin: 02/26/24 08:53 Dose: 81 mg Atorvastatin Calcium (Atorvastatin 40 Mg Tablet) 40 mg PO DAILY [facility] Last Admin: 02/26/24 08:53 Dose: 40 mg Buspirone HCl (Buspirone Hcl 5 Mg Tablet) 5 mg PO BID [facility] Last Admin: 02/26/24 08:53 Dose: 5 mg Cyclobenzaprine HCl (Cyclobenzaprine Hcl 10 Mg Tablet) 10 mg PO TID PRN PRN Reason: muscle spasm Fluoxetine HCl (Fluoxetine Hcl 20 Mg Capsule) 40 mg PO DAILY [facility] Last Admin: 02/26/24 08:52 Dose: 40 mg Heparin Sodium (Porcine) (Heparin Sodium 5,000 Units/Ml Vial) 4,000 units IV PUSH PRN PRN PRN Reason: aPTT less than 55 seconds Last Admin: 02/25/24 04:11 Dose: 4,000 units Heparin Sodium (Porcine) (Heparin Sodium 5,000 Units/Ml Vial) 2,500 units IV PUSH PRN PRN PRN Reason: aPTT 55 - 70 seconds Last Admin: 02/25/24 18:06 Dose: 2,500 units Heparin Sodium/Dextrose (Heparin Sodium/D5w 100 Units/Ml) 25,000 units in 250 mls @ 11 mls/hr IV CONT .[id number] [facility]; Protocol Last Titration: 02/26/24 07:05 Dose: 1,100 units/hr, 11 mls/hr Morphine Sulfate (Morphine Sulfate (*Crx) 2 Mg/Ml Inj) 2 mg IV PUSH Q4H PRN PRN Reason: Chest Pain Last Admin: 02/25/24 11:33 Dose: 2 mg Nitroglycerin (Nitroglycerin Sl 0.4 Mg Tablet) 0.4 mg SUBLINGUAL Q5MIN PRN PRN Reason: Chest Pain Nitroglycerin (Nitroglycerin Ointment 1 Inch Dose) 1 inch TRANSDERM Q6HR [facility] Last Admin: 02/26/24 11:51 Dose: Not Given Ondansetron HCl (Ondansetron Inj 4 Mg/2 Ml Vial) 4 mg IV PUSH Q6H PRN PRN Reason: Nausea And Vomiting Pantoprazole Sodium (Pantoprazole 40 Mg Tablet) 40 mg PO BID [facility] Last Admin: 02/26/24 08:53 Dose: 40 mg Perflutren Lipid Microsphere (Perflutren Lipid Microspheres 1.5 Ml Vial Diluted To 10 Ml Total Volume) 0 ml IV PUSH ONCE PRN; Protocol PRN Reason: adequate visualization Stop: 02/27/24 14:12 Quetiapine Fumarate (Quetiapine Fumarate 25 Mg Tablet) 25 mg PO QHS [facility] Last Admin: 02/25/24 20:25 Dose: 25 mg Sucralfate (Sucralfate 1 Gm Tablet) 1 gm PO ACHS [facility] Last Admin: 02/26/24 11:50 Dose: Not Given Sedation/Anesthesia: No previous sedation/anesthesia problems (including family history). [facility] Past Medical History Medical History Thoracic back pain Migraines Vitamin D deficiency Vitamin deficiency Insomnia Screening mammogram for breast cancer Tobacco abuse Elevated BP without diagnosis of hypertension Encounter to establish care History of abdominal hernia Upper abdominal pain Major depression Anemia Muscle spasm Anxiety Allergies Cholecystectomy planned Depression GERD (gastroesophageal reflux disease) Surgical History Surgical History History of hysterectomy History of bariatric surgery Family History Family History Father Family history of lung cancer Hypertension Heart disease Grandparent Cancer Hypertension Depression Diabetes mellitus Anxiety Acute myocardial infarction Heart disease Mother Hypertension Depression Anxiety Sibling Depression Anxiety Other Cerebrovascular accident Family history of allergic disorder Family history of cardiovascular disease Social History Social History Smoking packs per day: 1 Smoking cigarettes per day: 20.0 Years smoked: 33 Smoking pack-years: 33.00 Smoking status: Current every day smoker Tobacco type: cigarettes Alcohol intake: current Drinks per week: 1 Alcohol use details: Rarely Substance use: former Substance use type: marijuana Do You Feel Safe in your Home?: Yes Lack of Transportation: No Lack of Food: Never True Current Housing: I Have Housing Concerned About Future Housing: No Difficulty Paying Gas/Electric Bills: No Difficulty Paying for Meds: No Currently Unemployed: No Education: High School Diploma/GED Difficulty w/ Childcare or Family Care: No Spiritual care concerns: No Mod Sed Physical Exam Physical Exam Pre Procedural Exam: Normal: Appearance, Eyes, Ears, Nose, Neck, Throat, Airway, Lungs, Heart Size, Heart Rate, Heart Rhythm, Neuro Exam, Abdomen, Liver, Kidneys, Spleen, Breasts, Genitalia, Extremities and Skin Hours since solid foods: 8 Hours since liquid intake: 8 Mallampati Classification: class 1 Internal Medicine - PN: Obj Da Vital Signs Vital Signs: Vital Signs - 24 hr 02/25/24 12:00 02/25/24 12:00 02/25/24 12:00 Temperature 36.6 C Pulse Rate 66 78 Respiratory Rate 24 H Blood Pressure 122/83 Pulse Oximetry 98 Oxygen Delivery Room Air 02/25/24 14:00 02/25/24 16:00 02/25/24 16:00 Temperature 36.6 C Pulse Rate 87 82 83 Respiratory Rate 16 Blood Pressure 118/57 L Pulse Oximetry 98 Oxygen Delivery 02/25/24 16:00 02/25/24 18:00 02/25/24 20:00 Temperature 36.4 C Pulse Rate 83 80 Respiratory Rate 14 Blood Pressure 110/74 Pulse Oximetry 98 Oxygen Delivery Room Air 02/25/24 20:00 02/25/24 20:00 02/25/24 22:00 Temperature Pulse Rate 86 94 Respiratory Rate Blood Pressure Pulse Oximetry Oxygen Delivery Room Air 02/25/24 23:38 02/25/24 23:56 02/26/24 00:00 Temperature 36.5 C Pulse Rate 95 80 Respiratory Rate 16 Blood Pressure 101/59 L Pulse Oximetry 95 95 Oxygen Delivery Room Air 02/26/24 02:00 02/26/24 04:00 02/26/24 04:00 Temperature 36.6 C Pulse Rate 75 72 Respiratory Rate 16 Blood Pressure 104/55 L Pulse Oximetry 97 97 Oxygen Delivery Room Air 02/26/24 04:00 02/26/24 06:00 02/26/24 08:00 Temperature 36.4 C Pulse Rate 72 67 97 Respiratory Rate 16 Blood Pressure 110/69 Pulse Oximetry 97 Oxygen Delivery Intake/Output Intake/Output: Intake & Output 02/23/24 02/24/24 02/25/24 02/26/24 23:59 23:59 23:59 23:59 Intake Total 1280 1350.0 451.7 Output Total 1 800 Balance 1279 550.0 451.7 Meds/Results Medications: Active Medications Generic Name Dose Route Start Last Admin Trade Name Freq PRN Reason Stop Dose Admin Acetaminophen 650 mg 02/23/24 19:22 02/26/24 05:13 Acetaminophen 325 Mg Tablet PO 650 mg Q4H PRN Administration Mild Pain (1-3) or Fever Acetaminophen/Aspirin/Caffeine 1 tablet 02/23/24 19:21 02/26/24 08:51 Acetaminophen/Aspirin/Caffeine 250-250-65 Mg Tablet PO 1 tablet Q6H PRN Administration Pain Rated 1-3 Aspirin 81 mg 02/24/24 09:00 02/26/24 08:53 Aspirin 81 Mg Enteric Tablet PO 81 mg QAM STEPHON Administration Atorvastatin Calcium 40 mg 02/25/24 09:00 02/26/24 08:53 Atorvastatin 40 Mg Tablet PO 40 mg DAILY [facility] Administration Buspirone HCl 5 mg 02/24/24 09:00 02/26/24 08:53 Buspirone Hcl 5 Mg Tablet PO 5 mg BID [facility] Administration Cyclobenzaprine HCl 10 mg 02/23/24 19:21 Cyclobenzaprine Hcl 10 Mg Tablet PO TID PRN muscle spasm Fluoxetine HCl 40 mg 02/24/24 09:00 02/26/24 08:52 Fluoxetine Hcl 20 Mg Capsule PO 40 mg DAILY [facility] Administration Heparin Sodium (Porcine) 4,000 units 02/24/24 18:15 02/25/24 04:11 Heparin Sodium 5,000 Units/Ml Vial IV PUSH 4,000 units PRN PRN Administration aPTT less than 55 seconds Heparin Sodium (Porcine) 2,500 units 02/24/24 18:15 02/25/24 18:06 Heparin Sodium 5,000 Units/Ml Vial IV PUSH 2,500 units PRN PRN Administration aPTT 55 - 70 seconds Heparin Sodium/Dextrose 25,000 units in 250 mls @ 11 mls/hr 02/24/24 18:15 02/26/24 07:05 Heparin Sodium/D5w 100 Units/Ml IV CONT 1,100 units/hr .[id number] [facility] 11 mls/hr Titration Protocol 1,100 UNITS/HR Morphine Sulfate 2 mg 02/23/24 19:22 02/25/24 11:33 Morphine Sulfate (*Crx) 2 Mg/Ml Inj IV PUSH 2 mg Q4H PRN Administration Chest Pain Nitroglycerin 0.4 mg 02/23/24 19:21 Nitroglycerin Sl 0.4 Mg Tablet SUBLINGUAL Q5MIN PRN Chest Pain Nitroglycerin 1 inch 02/24/24 18:20 02/26/24 11:51 Nitroglycerin Ointment 1 Inch Dose TRANSDERM Not Given Q6HR [facility] Ondansetron HCl 4 mg 02/23/24 19:22 Ondansetron Inj 4 Mg/2 Ml Vial IV PUSH Q6H PRN Nausea And Vomiting Pantoprazole Sodium 40 mg 02/24/24 17:00 02/26/24 08:53 Pantoprazole 40 Mg Tablet PO 40 mg BID [facility] Administration Perflutren Lipid Microsphere 0 ml 02/24/24 14:11 Perflutren Lipid Microspheres 1.5 Ml Vial Diluted To 10 Ml Total Volume IV PUSH 02/27/24 14:12 ONCE PRN adequate visualization Protocol Quetiapine Fumarate 25 mg 02/23/24 21:00 02/25/24 20:25 Quetiapine Fumarate 25 Mg Tablet PO 25 mg QHS [facility] Administration Sucralfate 1 gm 02/26/24 11:30 02/26/24 11:50 Sucralfate 1 Gm Tablet PO Not Given ACHS [facility] Radiology Results: ITS Impressions Chest CTA 02/24/24 11:18 IMPRESSION: No evidence of pulmonary embolism Venous Doppler Study 02/24/24 12:22 IMPRESSION: No evidence of deep venous thrombosis of the lower extremities Chest X-Ray 02/24/24 13:41 IMPRESSION: Mild discoid atelectasis at right lung base; otherwise no active cardiopulmonary disease Labs 02/26/24 04:22 02/26/24 04:22 Labs: Laboratory Results - last 24 hr 02/25/24 02/25/24 02/26/24 12:13 16:43 00:41 WBC RBC Hgb Hct MCV MCH MCHC RDW Plt Count MPV Immature Gran % (Auto) Neut % (Auto) Lymph % (Auto) Warren % (Auto) Eos % (Auto) Baso % (Auto) Lymph # (Auto) Warren # (Auto) Eos # (Auto) Baso # (Auto) Abs Immat Gran (auto) Absolute Neuts (auto) Absolute Nucleated RBC Nucleated RBC % APTT 68.5 H 89.2 H Sodium Potassium Chloride Carbon Dioxide Anion Gap BUN Creatinine Estim Creat Clear Calc Estimated GFR Glucose Calcium Total Bilirubin AST ALT Alkaline Phosphatase Troponin I < 0.012 < 0.012 Total Protein Albumin 02/26/24 02/26/24 04:22 07:05 WBC 6.2 RBC 3.76 L Hgb 11.9 L Hct 35.6 L MCV 94.7 MCH 31.6 MCHC 33.4 RDW 12.8 Plt Count 179 MPV 10.6 H Immature Gran % (Auto) 0.2 Neut % (Auto) 43.5 L Lymph % (Auto) 39.9 Warren % (Auto) 9.8 H Eos % (Auto) 6.1 H Baso % (Auto) 0.5 Lymph # (Auto) 2.48 Warren # (Auto) 0.6 Eos # (Auto) 0.4 H Baso # (Auto) 0.0 Abs Immat Gran (auto) 0.01 Absolute Neuts (auto) 2.7 Absolute Nucleated RBC 0.000 Nucleated RBC % 0.0 APTT 98.4 H Sodium 140 Potassium 4.2 Chloride 110 H Carbon Dioxide 27 Anion Gap 3 L BUN 16 Creatinine 0.54 L Estim Creat Clear Calc 102 Estimated GFR > 60 Glucose 88 Calcium 8.9 Total Bilirubin 0.3 AST 16 ALT 12 Alkaline Phosphatase 64 Troponin I Total Protein 6.0 L Albumin 3.6 ASA Classification/Sedation ASA Classification/Sedation ASA Class: I Emergent: No Risks: Risks, benefits and alternatives explained and patient/family accepted plan for sedation. Patient re-evaluated immediately prior to sedation.
--- NOTE | 2024-02-26 11:56 | P.PCNCC_ITS ---
Cardiac Cath Procedure Note Date of procedure:: 02/26/24 Performing physician:: Kay Faria MD date of service 02/26/2024 Indication:: chest pain, abnormal echo Brief clinical history:: this is 48-year-old female with history of GERD, bariatric surgery presents with chest pain. Echocardiogram shows hypokinesis of the anterior wall. EKGs looked unremarkable and troponins negative. She is here to rule out CAD. Procedure Procedure performed:: 1-Moderate sedation that started at12:11 p.m. and ended at 12:33 p.m. with total duration 22 minutes using 4mg of Versed and 100mcg fentanyl. The registered nurse was sudarshan sunshine. 2-Selective left and right coronary angiogram. 3-Left heart catheterization with measurement of LVEDP and measurement of gradient across aortic valve. 3- LV angiogram. 4-Right common femoral arterial angiogram. 5-Deployment of 6 [place] Angio-Seal. Sedation/Medication given:: Moderate sedation. Access site:: Right common femoral artery. Estimated blood loss:: 10cc Procedure note:: After informed consent patient was brought in to laborer syrup machine with the was draped and prepped in usual manner. Moderate sedation was given and the right groin was infiltrated using 1% lidocaine. Five [place] sheath was obtained using micropuncture needle and the modified Seldinger technique. Selective left coronary angiogram was done using JL4 catheter with the tip of the catheter placed in the left main coronary artery. Selective right coronary angiogram was done using JR4 catheter with the tip of the catheter placed to the right coronary artery. After that 5 [place] pigtail catheter was advanced across the aortic valve into the left ventricle with measurement of LVEDP and measurement of gradient across aortic valve. Right common femoral arterial angiogram was done. Findings:: 1- left coronary artery is a large artery that divides into large LAD, large circumflex artery. Left main is Free of disease. 2- left anterior descending artery is a large artery that runs and wraps around the apex. Minimal irregularities. In the mid segment medium size to large size diagonal branch without significant disease. 3- leftcircumflex artery is a large artery Minimal irregularities. Proximally gives rise to medium OM1 that is free of disease. 4- right coronary artery is Large artery and dominant with minimal irregularities. 5- LVEDP was 15mmhg and no gradient across aortic valve. 6- opening arterial pressure was 124/67 and closing pressure was 116/83 7- LV angiogram shows no wall motion abnormalities and normal ejection fraction 65%. 7- right femoral artery angiogram shows no significant disease in the right common femoral artery. Conclusion:: - minimal irregularities. - normal LV systolic function. Assessment and Plan Assessment and plan (1) Unstable angina: Code(s): I20.0 - Unstable angina Status: Acute Assessment and Plan: - Continue risk factor modification for CAD. No significant CAD. Patient -should be stable to be discharged home later on today.
--- NOTE | 2024-02-26 12:46 | WPDHPUPDATE1 ---
History and Physical Update Update Date/Time: 02/26/24 12:46 History and Physical has been reviewed, including an updated exam of the patient. There are NO changes in the patient's condition. Risks, benefits, and alternatives have been discussed and questions answered. Patient agrees to proceed with procedure.
[2024-02-26] MEDS: SODIUM CHLORIDE 0.9% IV 500 ML 125 ML IV CONT (13:20)
--- NOTE | 2024-02-26 15:45 | PM.DS ---
DS: Admitting Diagnosis Discharge Date 02/26/24 Admitting Diagnosis Unstable angina dyspnea Migraines GERD Elevated blood pressure without diagnosis of hypertension Anxiety Major depression DS: Discharge Diagnosis Discharge Diagnosis (1) Angina at rest: Code(s): I20.89 - Other forms of angina pectoris Status: Acute (2) Dyspnea: Code(s): R06.00 - Dyspnea, unspecified Status: Acute (3) Migraines: Code(s): G43.909 - Migraine, unspecified, not intractable, without status migrainosus Status: Acute (4) GERD (gastroesophageal reflux disease): Code(s): K21.9 - Gastro-esophageal reflux disease without esophagitis Status: Acute (5) Elevated BP without diagnosis of hypertension: Code(s): R03.0 - Elevated blood-pressure reading, without diagnosis of hypertension Status: Acute (6) Anxiety: Code(s): F41.9 - Anxiety disorder, unspecified Status: Acute (7) Major depression: Code(s): F32.9 - Major depressive disorder, single episode, unspecified Status: Acute DS: Summary Hospital Course Reason for hospitalization: Unstable angina dyspnea Migraines GERD Elevated blood pressure without diagnosis of hypertension Anxiety Major depression Hospital Course: This is a 48-year-old female significant past medical history of migraines, insomnia, vitamin-D deficiency, tobacco abuse, depression, anemia, anxiety, GERD, gastric sleeve surgery who presented to the hospital with increased shortness of breath and dyspnea. Patient originally presented to [facility] and was an inpatient transfer to [facility] for cardiac work up. Patient states that she has been under a lot of stress since [place] and is dealing with some family issues. She noticed that she has become more short of breath just with talking and Started having right-sided chest pain that radiates to her back that does not go away with rest. She was treated for anxiety in the past however she stopped all of her medications about 8 months ago due to weight gain. She states she feels anxious all the time however even with her anxiety in the past she has never had chest pain and shortness of breath associated with it. She states she has a family history of coronary artery disease and has had a few family members with MIs and congestive heart failure. She admits to smoking 1 pack of cigarettes per day. She did receive nitroglycerin and morphine in the ED which did relieve her chest pain. She states after that dose she was able to take a deep breath for the 1st time in a while. She denies any fever, chills, nausea, vomiting, diarrhea, abdominal pain. She denies any recent sick contacts. Workup in the hospital included a chest / abdomen CTA which showed moderate gastritis, no dissection. Initial labs showed a normal white blood cell count of 9.8, potassium 3.4, magnesium 1.9, troponin negative x2, proBNP was only 94. Respiratory panel was negative for influenza A and B, RSV, COVID. EKG showed sinus rhythm with a rate of 84, QTC 435, no ST elevation. Patient was given 4 mg IV push morphine, Ativan, Maalox, and Nitroglycerin while in the ED at [place]. Cardiology consulted. Patient had echo which shown: 1. Complete two-dimensional, color flow and Doppler transthoracic echocardiogram is performed. 2. The anterior wall, and apical lateral wall are hypokinetic. 3. Left ventricular chamber dimension is normal. 4. Left ventricular systolic function is normal, estimated at 65-70%. 5. There is mildly increased left ventricular wall thickness. 6. The left ventricular diastolic function is grade I diastolic dysfunction. 7. There is mild aortic valve regurgitation. 8. There is mild mitral valve regurgitation. 9. There is mild tricuspid valve regurgitation. 10. There is mild pulmonic regurgitation. 11. The aortic root size at the sinus of Valsalva is mildly dilated. Patient was started on Heparin infusion and was transferred to the IMU for closer monitoring. She then had left heart catheterization on Monday02/25/23 which was essentially normal. She can follow up with Cardiology as needed. She was seen by GI as well due to her acid reflux. She was started on Carafate and Protonix BID. She will need outpatient EGD to assess for Duodenal ulcer. She is stable for discharge at this time. VSS, she is afebrile, currently on room air. Prescriptions were restarted for her Depression and Anxiety. she will need to follow up with her PCP in 1 week for further management of her situational stress. Unstable angina was ruled out by cardiology Final diagnosis: Chest pain, severe acid reflux, anxiety Status at Discharge Cognitive/behavioral status at discharge: Alert and oriented x3 Functional status at discharge: independent ambulation Overall status at discharge: patient is progressing back to baseline Time Spent with Patient Time attestation: Total time spent providing and/or coordinating discharge services: Time spent: Greater than 30 minutes Exam Narrative: General: In no ac [place] distress, well nourished Cardiac : Normal S1 and S2 . RRR, No murmur, gallops or fricti on rubs, periphera l pulses intact. S till reporting ttia st discomfort Resp iratory: Lungs laura ar to auscultation , no adventitious lung sounds, curre ntly on room air. SOB with rest and exertion. Gastroi ntestinal: soft, n on-distended, non- tender, normoactiv e bowel sounds. : voiding without difficulty. Neuro: Alert and oriente d x4 DS: Data Data Completed and Pending Completed studies during hospitalization: Chest x-ray Venous doppler study CHest CTA Pending studies at discharge: None Labs on day of discharge: Labs from last 24 hours 02/26/24 02/26/24 02/26/24 07:05 04:22 00:41 WBC 6.2 RBC 3.76 L Hgb 11.9 L Hct 35.6 L MCV 94.7 MCH 31.6 MCHC 33.4 RDW 12.8 Plt Count 179 MPV 10.6 H Immature Gran % (Auto) 0.2 Neut % (Auto) 43.5 L Lymph % (Auto) 39.9 [place] % (Auto) 9.8 H Eos % (Auto) 6.1 H Baso % (Auto) 0.5 Lymph # (Auto) 2.48 [place] # (Auto) 0.6 Eos # (Auto) 0.4 H Baso # (Auto) 0.0 Abs Immat Gran (auto) 0.01 Absolute Neuts (auto) 2.7 Absolute Nucleated RBC 0.000 Nucleated RBC % 0.0 APTT 98.4 H 89.2 H Sodium 140 Potassium 4.2 Chloride 110 H Carbon Dioxide 27 Anion Gap 3 L BUN 16 Creatinine 0.54 L Estim Creat Clear Calc 102 Estimated GFR > 60 Glucose 88 Calcium 8.9 Total Bilirubin 0.3 AST 16 ALT 12 Alkaline Phosphatase 64 Troponin I Total Protein 6.0 L Albumin 3.6 02/25/24 16:43 WBC RBC Hgb Hct MCV MCH MCHC RDW Plt Count MPV Immature Gran % (Auto) Neut % (Auto) Lymph % (Auto) [place] % (Auto) Eos % (Auto) Baso % (Auto) Lymph # (Auto) [place] # (Auto) Eos # (Auto) Baso # (Auto) Abs Immat Gran (auto) Absolute Neuts (auto) Absolute Nucleated RBC Nucleated RBC % APTT 68.5 H Sodium Potassium Chloride Carbon Dioxide Anion Gap BUN Creatinine Estim Creat Clear Calc Estimated GFR Glucose Calcium Total Bilirubin AST ALT Alkaline Phosphatase Troponin I < 0.012 Total Protein Albumin Procedures/Treatments: Left heart catheterization Discharge Plan Discharge Attending physician on discharge: Emily Allen Consulting providers: David Shaw; Tera Costello Discharging Clinician: Sita Thornton Anticipated Discharge Date/Time: 02/26/24 15:45 Patient Disposition: Home, Self-Care Activity: as tolerated Diet: as tolerated Discharge Instructions: continue to take aspirin and atorvastatin daily per Cardiology recommendation follow-up with cardiology in 1 month continue taking Carafate 30 minutes before meals and at bedtime as well as Protonix twice a day for your acid reflux per GI recommendation. Stop taking Nexium/esomeprazole follow-up with GI in the next 2 weeks to set up EGD on an outpatient basis prescriptions were called in for your BuSpar and Prozac, follow-up with your primary care doctor in 1 week to discuss adjusting these medications or going to different medications based on your symptoms stop smoking or at least decrease if you can not stop completely as this can contribute to coronary artery disease Patient Instructions: Antibiotic Form, Heart Catheterization (DC), Upper Endoscopy (DC), Angio-Seal (DC) Patient Language: Maori Stand Alone Forms: General Discharge Information Follow-up/Referrals: Kay Faria MD [Physician] - 4 Weeks ( call for an appointment in 4 weeks) Darcie Kwan NP [Primary Care Provider] - 1 Week ( may need adjustment in her anxiety medications due to her situational stress) Tera Costello MD [Physician] - 2 Weeks ( for outpatient EGD) Discharge Medications: New atorvastatin 40 mg Tablet 40 mg PO DAILY Qty: 30 0RF sucralfate 1 gram Tablet 1 g PO ACHS Qty: 120 0RF pantoprazole 40 mg Tablet,Delayed Release (Dr/Ec) 40 mg PO BID Qty: 60 0RF Continued cyclobenzaprine 10 mg tablet 10 mg PO TID PRN (Reason: muscle spasm) Qty: 30 0RF nicotine [Nicoderm CQ] 21 mg/24 hr Patch 24 Hour 1 patch transdermal DAILY Qty: 1 0RF quetiapine [Seroquel] 25 mg tablet 25 mg PO QHS Qty: 30 11RF ergocalciferol (vitamin D2) 1,250 mcg (50,000 unit) capsule 1,250 mcg PO WEEKLY Qty: 13 3RF fluoxetine 40 mg capsule 40 mg PO DAILY Qty: 30 11RF buspirone 5 mg tablet See Rx Instructions PO BID Qty: 180 0RF Rx Instructions: orally twice a day; start 5mg 2x/day and titrate to 15mg 2x/day as directed aspirin 81 mg Tablet,Delayed Release (Dr/Ec) 81 mg PO QAM Qty: 30 0RF Discontinued nitroglycerin [Nitrostat] 0.4 mg Tablet, Sublingual 0.4 mg sublingual Q5MIN PRN (Reason: Chest Pain) Qty: 1 0RF esomeprazole magnesium 40 mg capsule,delayed release(DR/EC) 40 mg PO Q24H Date of admission: 02/23/24 17:20 Primary Care Provider: Darcie Kwan Admitting Provider: Alphonse Celestin Attending physician on admission: Sita Thornton Condition: Improved Quality VTE Prophylaxis VTE prophylaxis: pharmacologic ordered Hospitalist MIPS Heart Failure (Exclusion) Patient has history of Heart Transplant or Left Ventricular Assistive Device?: No IF YES, STOP HERE Heart Failure (Qualifier) Patient has current or prior documentation of LVEF less than or equal to 40%, or mod/servere depressed LVSF?: No IF NO, STOP HERE
--- NOTE | 2024-02-26 15:58 | P.PNGI_ITS ---
Progress Note: A&P Assessment and Plan (1) GERD (gastroesophageal reflux disease): Code(s): K21.9 - Gastro-esophageal reflux disease without esophagitis Status: Acute Assessment and Plan: medical management plan is to repeat EGD in few more weeks since she has been using more tums, on ppi- will set up no gib (2) Upper abdominal pain: Code(s): R10.10 - Upper abdominal pain, unspecified Status: Acute (3) Unstable angina: Code(s): I20.0 - Unstable angina Status: Acute Assessment and Plan: cardiac cath no major findings Subjective Date/time seen: 02/26/24 15:58 Interval history: cardiac cath no major findings still with sob tolerating diet Review of Systems Review of Systems: All systems reviewed & are unremarkable except as noted in HPI and below Exam Narrative: alert oriented appears stated age Const: General: comfortable and no acute distress HENMT: Face/Nose/Sinus: Normal nares present Mouth: Yes moist mucous membranes Eyes: General: appearance normal, both eyes and all related structures Sclera: sclerae normal Neck: Neck: supple Resp: Effort & Inspection: normal respiratory effort Auscultation: clear to auscultation bilaterally Cardio: Rate: regular rate Rhythm: regular rhythm Heart sounds: no rubs GI: Inspection: non-distended GI Palp: Yes Soft to palpation and No Guarding due to palpation present (GI) Auscultation: normal bowel sounds Skin: General skin exam: normal color Neuro: Cranial nerves: No Normal hearing present Speech: normal speech and No Abnormal speech present Extrem: General: normal to inspection Psych: Mental Status: mental status grossly normal Objective Data Vital Signs Vital Signs: Vital Signs - 24 hr 02/25/24 16:00 02/25/24 16:00 02/25/24 16:00 Temperature 97.9 F Pulse Rate 82 83 Pulse Rate [Right Pedal (Dorsalis Pedis)] Respiratory Rate 16 Blood Pressure 118/57 L Pulse Oximetry 98 Oxygen Delivery Room Air 02/25/24 18:00 02/25/24 20:00 02/25/24 20:00 Temperature 97.6 F Pulse Rate 83 80 86 Pulse Rate [Right Pedal (Dorsalis Pedis)] Respiratory Rate 14 Blood Pressure 110/74 Pulse Oximetry 98 Oxygen Delivery 02/25/24 20:00 02/25/24 22:00 02/25/24 23:38 Temperature Pulse Rate 94 Pulse Rate [Right Pedal (Dorsalis Pedis)] Respiratory Rate Blood Pressure Pulse Oximetry 95 Oxygen Delivery Room Air Room Air 02/25/24 23:56 02/26/24 00:00 02/26/24 02:00 Temperature 97.7 F Pulse Rate 95 80 75 Pulse Rate [Right Pedal (Dorsalis Pedis)] Respiratory Rate 16 Blood Pressure 101/59 L Pulse Oximetry 95 Oxygen Delivery 02/26/24 04:00 02/26/24 04:00 02/26/24 04:00 Temperature 97.8 F Pulse Rate 72 72 Pulse Rate [Right Pedal (Dorsalis Pedis)] Respiratory Rate 16 Blood Pressure 104/55 L Pulse Oximetry 97 97 Oxygen Delivery Room Air 02/26/24 06:00 02/26/24 08:00 02/26/24 12:00 Temperature 97.6 F 98 F Pulse Rate 67 97 63 Pulse Rate [Right Pedal (Dorsalis Pedis)] Respiratory Rate 16 16 Blood Pressure 110/69 128/73 Pulse Oximetry 97 98 Oxygen Delivery 02/26/24 12:50 02/26/24 12:50 02/26/24 13:05 Temperature Pulse Rate 67 58 L Pulse Rate [Right Pedal (Dorsalis Pedis)] 67 Respiratory Rate 12 12 Blood Pressure 141/87 H 128/71 Pulse Oximetry 94 95 Oxygen Delivery Room Air Room Air 02/26/24 13:05 02/26/24 13:20 02/26/24 13:20 Temperature Pulse Rate 59 L Pulse Rate [Right Pedal (Dorsalis Pedis)] 58 L 59 L Respiratory Rate 12 Blood Pressure 124/73 Pulse Oximetry 95 Oxygen Delivery Room Air 02/26/24 13:35 02/26/24 13:35 02/26/24 13:50 Temperature Pulse Rate 58 L 64 Pulse Rate [Right Pedal (Dorsalis Pedis)] 58 L Respiratory Rate 14 12 Blood Pressure 131/81 130/75 Pulse Oximetry 96 97 Oxygen Delivery Room Air Room Air 02/26/24 13:50 02/26/24 14:05 02/26/24 14:05 Temperature Pulse Rate 59 L Pulse Rate [Right Pedal (Dorsalis Pedis)] 64 59 L Respiratory Rate 14 Blood Pressure 127/80 Pulse Oximetry 97 Oxygen Delivery Room Air 02/26/24 14:20 02/26/24 14:20 Temperature Pulse Rate 64 Pulse Rate [Right Pedal (Dorsalis Pedis)] 64 Respiratory Rate 16 Blood Pressure 116/76 Pulse Oximetry 97 Oxygen Delivery Room Air Intake/Output Intake/Output: Intake & Output 02/23/24 02/24/24 02/25/24 02/26/24 23:59 23:59 23:59 23:59 Intake Total 1280 1350.0 451.7 Output Total 1 800 Balance 1279 550.0 451.7 Meds/Results Medications: Active Medications Generic Name Dose Route Start Last Admin Trade Name Freq PRN Reason Stop Dose Admin Acetaminophen 650 mg 02/23/24 19:22 02/26/24 05:13 Acetaminophen 325 Mg Tablet PO 650 mg Q4H PRN Administration Mild Pain (1-3) or Fever Acetaminophen/Aspirin/Caffeine 1 tablet 02/23/24 19:21 02/26/24 08:51 Acetaminophen/Aspirin/Caffeine 250-250-65 Mg Tablet PO 1 tablet Q6H PRN Administration Pain Rated 1-3 Aspirin 81 mg 02/24/24 09:00 02/26/24 08:53 Aspirin 81 Mg Enteric Tablet PO 81 mg QAM STEPHON Administration Atorvastatin Calcium 40 mg 02/25/24 09:00 02/26/24 08:53 Atorvastatin 40 Mg Tablet PO 40 mg DAILY STEPHON Administration Buspirone HCl 5 mg 02/24/24 09:00 02/26/24 08:53 Buspirone Hcl 5 Mg Tablet PO 5 mg BID STEPHON Administration Cyclobenzaprine HCl 10 mg 02/23/24 19:21 Cyclobenzaprine Hcl 10 Mg Tablet PO TID PRN muscle spasm Fluoxetine HCl 40 mg 02/24/24 09:00 02/26/24 08:52 Fluoxetine Hcl 20 Mg Capsule PO 40 mg DAILY STEPHON Administration Sodium Chloride 500 mls @ 125 mls/hr 02/26/24 13:05 02/26/24 13:20 Normal Saline Iv IV CONT 02/26/24 17:04 125 mls/hr .Q4H ONE Administration Morphine Sulfate 2 mg 02/23/24 19:22 02/25/24 11:33 Morphine Sulfate (*Crx) 2 Mg/Ml Inj IV PUSH 2 mg Q4H PRN Administration Chest Pain Nitroglycerin 0.4 mg 02/23/24 19:21 Nitroglycerin Sl 0.4 Mg Tablet SUBLINGUAL Q5MIN PRN Chest Pain Nitroglycerin 1 inch 02/24/24 18:20 02/26/24 11:51 Nitroglycerin Ointment 1 Inch Dose TRANSDERM Not Given Q6HR [facility] Ondansetron HCl 4 mg 02/23/24 19:22 Ondansetron Inj 4 Mg/2 Ml Vial IV PUSH Q6H PRN Nausea And Vomiting Pantoprazole Sodium 40 mg 02/24/24 17:00 02/26/24 08:53 Pantoprazole 40 Mg Tablet PO 40 mg BID STEPHON Administration Perflutren Lipid Microsphere 0 ml 02/24/24 14:11 Perflutren Lipid Microspheres 1.5 Ml Vial Diluted To 10 Ml Total Volume IV PUSH 02/27/24 14:12 ONCE PRN adequate visualization Protocol Quetiapine Fumarate 25 mg 02/23/24 21:00 02/25/24 20:25 Quetiapine Fumarate 25 Mg Tablet PO 25 mg QHS STEPHON Administration Sucralfate 1 gm 02/26/24 11:30 02/26/24 11:50 Sucralfate 1 Gm Tablet PO Not Given ACHS [facility] Radiology Results: ITS Impressions Chest CTA 02/24/24 11:18 IMPRESSION: No evidence of pulmonary embolism Venous Doppler Study 02/24/24 12:22 IMPRESSION: No evidence of deep venous thrombosis of the lower extremities Chest X-Ray 02/24/24 13:41 IMPRESSION: Mild discoid atelectasis at right lung base; otherwise no active cardiopulmonary disease Labs Labs: Laboratory Results - last 24 hr 02/25/24 02/26/24 02/26/24 16:43 00:41 04:22 WBC 6.2 RBC 3.76 L Hgb 11.9 L Hct 35.6 L MCV 94.7 MCH 31.6 MCHC 33.4 RDW 12.8 Plt Count 179 MPV 10.6 H Immature Gran % (Auto) 0.2 Neut % (Auto) 43.5 L Lymph % (Auto) 39.9 [place] % (Auto) 9.8 H Eos % (Auto) 6.1 H Baso % (Auto) 0.5 Lymph # (Auto) 2.48 [place] # (Auto) 0.6 Eos # (Auto) 0.4 H Baso # (Auto) 0.0 Abs Immat Gran (auto) 0.01 Absolute Neuts (auto) 2.7 Absolute Nucleated RBC 0.000 Nucleated RBC % 0.0 APTT 68.5 H 89.2 H Sodium 140 Potassium 4.2 Chloride 110 H Carbon Dioxide 27 Anion Gap 3 L BUN 16 Creatinine 0.54 L Estim Creat Clear Calc 102 Estimated GFR > 60 Glucose 88 Calcium 8.9 Total Bilirubin 0.3 AST 16 ALT 12 Alkaline Phosphatase 64 Troponin I < 0.012 Total Protein 6.0 L Albumin 3.6 02/26/24 07:05 WBC RBC Hgb Hct MCV MCH MCHC RDW Plt Count MPV Immature Gran % (Auto) Neut % (Auto) Lymph % (Auto) [place] % (Auto) Eos % (Auto) Baso % (Auto) Lymph # (Auto) [place] # (Auto) Eos # (Auto) Baso # (Auto) Abs Immat Gran (auto) Absolute Neuts (auto) Absolute Nucleated RBC Nucleated RBC % APTT 98.4 H Sodium Potassium Chloride Carbon Dioxide Anion Gap BUN Creatinine Estim Creat Clear Calc Estimated GFR Glucose Calcium Total Bilirubin AST ALT Alkaline Phosphatase Troponin I Total Protein Albumin
[2024-02-26] MEDS: SUCRALFATE 1 GM TABLET PO (17:39)
== END 2024-02-26 17:15 | disposition home or self-care (01) | DRG 287 ==
LOC: ANH3MED 19:48 → ANHIMU 02-26 07:37 → ANH3MED 02-29 13:50 → ANH2MED 03-01 06:19
PROVIDERS: Internal Medicine Cardiovascular Disease; Nurse Practitioner Gerontology; Admitting Provider Internal Medicine; PCP Nurse Practitioner Family; Visit Provider Nurse Practitioner Acute Care
PROC: 4A023N7 Measurement of Cardiac Sampling and Pressure, Left Heart, Percutaneous Approach (ICD-10-PCS; CPT 93452; principal; 2024-02-26 13:30)
PROC: 4A023N7 Measurement of Cardiac Sampling and Pressure, Left Heart, Percutaneous Approach (ICD-10-PCS; 2024-02-26 13:30)
DX: I20.0 Unstable angina (principal); D64.9 Anemia, unspecified; E55.9 Vitamin D deficiency, unspecified; F32.A Depression, unspecified; F41.9 Anxiety disorder, unspecified; F17.210 Nicotine dependence, cigarettes, uncomplicated; G47.00 Insomnia, unspecified; G43.909 Migraine, unspecified, not intractable, without status migrainosus; K21.9 Gastro-esophageal reflux disease without esophagitis; R03.0 Elevated blood-pressure reading, without diagnosis of hypertension; Z20.822 Contact with and (suspected) exposure to COVID-19; Z79.82 Long term (current) use of aspirin; Z28.21 Immunization not carried out because of patient refusal; Z98.84 Bariatric surgery status
CPT/HCPCS: 36415; 71045; 71275; 80053; 80061; 83735; 84484; 85025; 85380; 85610; 85730; 93005; 93306; 93458; 93970; 96365; 96366; 96375; 96376; A9270; C1760; C1887; C1894; G0269; G0378; J1644; J2003; J2250; J2270; J3010; J7040; Q9967

== ENCOUNTER 2024-04-24 00:28 | Day surgery (SDC) | payer OTHER, SELFPAY ==
[2024-04-18 10:30] VITALS: BMI 27.1
--- OUTSIDE RECORDS SUMMARY | 2024-04-24 00:31 | XMS_ITS | Continuity of Care Document ---
Author Organization [facility] Address [address] [place] [address] [address] [place] [address] Phone Care Team Providers Care Cage Fighter Name Role Phone Zheng OD, Ciro Unavailable Unavailable Procedures Procedure Date Eye Exam & Treatment Advance Directives Directive Yes / No Effective Date File Name No Information Encounters Encounter Description Practice Location Reason(s) For Visit Diagnoses Date Provider Providers Copied on Encounter [facility], [address] [place] [address] [address], [place], [place], [id number], [place] tel:[phone] [facility] No Information 8-200 9 Zheng OD Ciro. [address] [facility] [address] , [address], [place], [address], [place]. tel:[phone] Family History Family Member Type Diagnosis Age At Onset No Information Payers Payer name Insurance type Covered green party ID Authoriza tion(s) Medicaid [facility] [id number] Social History Type Description Quantity Date Captured [...]
[2024-04-24] MEDS: LACTATED RINGERS 1,000 ML 150 ML IV CONT (12:51)
[2024-04-24 12:55] VITALS: BP 151/91; PULSE 96; RESP 20; TEMP 36.7; O2SAT 100
--- NOTE | 2024-04-24 12:56 | WPDANESEPPF ---
Anes - Initial Pre Proc Eval Procedure: Operation Date: 04/24/24 13:30 Proposed Procedures p Esophagogastroduodenoscopy & Colonoscopy - Tera Costello MD Date/Time: 04/24/24 12:56 Surgeon: Tera Costello MD Pre Op Diagnosis: GERD,upper abdominal pain, Bariatric surgery statu Patient Data Age: 48 Gender: F Height: 1.68 m Weight: 76.3 kg Allergies Allergy/AdvReac Type Severity Reaction Status Date / Time metformin Allergy Unknown Other Verified 04/24/24 12:39 [email or web address] Allergy Unknown Other Verified 04/24/24 12:39 Home Medications ?Medication ?Instructions ?Recorded ?Confirmed ?Type nicotine 21 mg/24 hr daily 1 patch transdermal DAILY #1 ea 02/23/24 03/13/24 Rx transdermal patch (Nicoderm CQ) aspirin 81 mg tablet,delayed 81 mg PO QAM #30 tabs 02/26/24 04/24/24 Rx release atorvastatin 40 mg tablet 40 mg PO DAILY #30 tabs 02/26/24 04/24/24 Rx fluoxetine 40 mg capsule 40 mg PO DAILY #30 caps 02/26/24 04/24/24 Rx pantoprazole 40 mg tablet,delayed 40 mg PO BID #60 tabs 02/26/24 03/13/24 Rx release sucralfate 1 gram tablet 1 g PO ACHS #120 tabs 02/26/24 03/13/24 Rx buspirone 5 mg tablet 15 mg PO BID 03/13/24 03/13/24 History metoprolol succinate 25 mg 12.5 mg (1/2 x 25 mg) PO DAILY #15 04/23/24 04/24/24 Rx tablet,extended release 24 hr tabs quetiapine 25 mg tablet (Seroquel) 25 mg PO QHS #30 tabs 04/23/24 04/24/24 Rx rimegepant 75 mg disintegrating 75 mg PO ONCE PRN migraine 04/23/24 04/24/24 Rx tablet (Nurtec ODT) headache #9 tabs acetaminophen 325 mg tablet 650 mg PO ONCE PRN headache 04/24/24 04/24/24 History (Tylenol) Patient hx anesthesia problems: none Family hx anesthesia problems: none Results Review: All pre-operative results and documents have been reviewed as part of the pre-operative evaluation. [facility] Past Medical History Medical History Colon polyp Hyperlipidemia Thoracic back pain Migraines Vitamin D deficiency Vitamin deficiency Insomnia Screening mammogram for breast cancer Tobacco abuse Elevated BP without diagnosis of hypertension Encounter to establish care History of abdominal hernia Upper abdominal pain Major depression Anemia Muscle spasm Anxiety Allergies Cholecystectomy planned Depression GERD (gastroesophageal reflux disease) Surgical History Surgical History History of hysterectomy History of bariatric surgery Family History Family History Father Family history of lung cancer Hypertension Heart disease Grandparent Cancer Hypertension Depression Diabetes mellitus Anxiety Acute myocardial infarction Heart disease Mother Hypertension Depression Anxiety Sibling Depression Anxiety Other Cerebrovascular accident Family history of allergic disorder Family history of cardiovascular disease Social History Social History Smoking packs per day: 1 Smoking cigarettes per day: 20.0 Years smoked: 33 Smoking pack-years: 33.00 Smoking status: Former smoker Tobacco type: cigarettes Alcohol intake: current Drinks per week: 1 Alcohol use details: Rarely Substance use: never Substance use type: does not use Do You Feel Safe in your Home?: Yes Lack of Transportation: No Lack of Food: Never True Current Housing: I Have Housing Concerned About Future Housing: No Difficulty Paying Gas/Electric Bills: No Difficulty Paying for Meds: No Currently Unemployed: No Education: High School Diploma/GED Difficulty w/ Childcare or Family Care: No Spiritual care concerns: No Anes - Eval Final PreProcedure Day of Procedure 04/24/24 12:56 Patient weight: overweight Heart: regular rate and rhythm Lungs: clear to auscultation Airway: Mallampati scale class II Neurological: alert and oriented Last oral intake: >/= 8 hours ASA classification: III Emergent: no Anesthetic plan: proceed Anesthesia type and monitoring: general GIVS and standard monitoring Results Review: All pre-operative results and documents have been reviewed as part of the pre-operative evaluation. Informed Consent: The patient's anesthetic plan and its attendant risks and benefits were discussed with the patient/family/POA. Questions were solicited and answers provided to the satisfaction of the patient/family/POA.
--- NOTE | 2024-04-24 14:14 | PM.HPGS ---
History of Present Illness History of Present Illness Consent: Risks, benefits, and alternatives have been discussed and questions answered. Patient agrees to proceed with procedure. Chief complaint: GERD,upper abdominal pain, Bariatric surgery statu Narrative: Sara Handley is a 48 year old female with gastric sleeve about 8 years ago. Recent admission for non cardiac chest pain (had negative cardiac cath). She has been struggling with chest pain since gastric surgery, if does not matter what she eats, also reflux with overall discomfort that is not going away despite medical treatment. Also due to have another colonoscopy because h/o polyp. Review of Systems Review of Systems: All systems reviewed & are unremarkable except as noted in HPI and below PMFSH Past Medical History Medical History Colon polyp Hyperlipidemia Thoracic back pain Migraines Vitamin D deficiency Vitamin deficiency Insomnia Screening mammogram for breast cancer Tobacco abuse Elevated BP without diagnosis of hypertension Encounter to establish care History of abdominal hernia Upper abdominal pain Major depression Anemia Muscle spasm Anxiety Allergies Cholecystectomy planned Depression GERD (gastroesophageal reflux disease) Surgical History Surgical History History of hysterectomy History of bariatric surgery Family History Family History Father Family history of lung cancer Hypertension Heart disease Grandparent Cancer Hypertension Depression Diabetes mellitus Anxiety Acute myocardial infarction Heart disease Mother Hypertension Depression Anxiety Sibling Depression Anxiety Other Cerebrovascular accident Family history of allergic disorder Family history of cardiovascular disease Social History Social History Smoking packs per day: 1 Smoking cigarettes per day: 20.0 Years smoked: 33 Smoking pack-years: 33.00 Smoking status: Former smoker Tobacco type: cigarettes Alcohol intake: current Drinks per week: 1 Alcohol use details: Rarely Substance use: never Substance use type: does not use Do You Feel Safe in your Home?: Yes Lack of Transportation: No Lack of Food: Never True Current Housing: I Have Housing Concerned About Future Housing: No Difficulty Paying Gas/Electric Bills: No Difficulty Paying for Meds: No Currently Unemployed: No Education: High School Diploma/GED Difficulty w/ Childcare or Family Care: No Spiritual care concerns: No Meds Home Medications and Allergies Home Medications ?Medication ?Instructions ?Recorded ?Confirmed ?Type nicotine 21 mg/24 hr daily 1 patch transdermal DAILY #1 ea 02/23/24 03/13/24 Rx transdermal patch (Nicoderm CQ) aspirin 81 mg tablet,delayed 81 mg PO QAM #30 tabs 02/26/24 04/24/24 Rx release atorvastatin 40 mg tablet 40 mg PO DAILY #30 tabs 02/26/24 04/24/24 Rx fluoxetine 40 mg capsule 40 mg PO DAILY #30 caps 02/26/24 04/24/24 Rx pantoprazole 40 mg tablet,delayed 40 mg PO BID #60 tabs 02/26/24 03/13/24 Rx release sucralfate 1 gram tablet 1 g PO ACHS #120 tabs 02/26/24 03/13/24 Rx buspirone 5 mg tablet 15 mg PO BID 03/13/24 03/13/24 History metoprolol succinate 25 mg 12.5 mg (1/2 x 25 mg) PO DAILY #15 04/23/24 04/24/24 Rx tablet,extended release 24 hr tabs quetiapine 25 mg tablet (Seroquel) 25 mg PO QHS #30 tabs 04/23/24 04/24/24 Rx rimegepant 75 mg disintegrating 75 mg PO ONCE PRN migraine 04/23/24 04/24/24 Rx tablet (Nurtec ODT) headache #9 tabs acetaminophen 325 mg tablet 650 mg PO ONCE PRN headache 04/24/24 04/24/24 History (Tylenol) Allergies Allergy/AdvReac Type Severity Reaction Status Date / Time metformin Allergy Unknown Other Verified 04/24/24 12:39 varenicline Allergy Unknown Other Verified 04/24/24 12:39 Vital Signs Vital Signs - 24 hr 04/24/24 12:55 Temperature 98.1 F Pulse Rate 96 Respiratory Rate 20 Blood Pressure 151/91 H Pulse Oximetry 100 Oxygen Delivery Room Air Exam Const: General: comfortable and no acute distress HENMT: Face/Nose/Sinus: Normal nares present Eyes: General: appearance normal, both eyes and all related structures Neck: Neck: no JVD Resp: Auscultation: clear to auscultation bilaterally Cardio: Rate: regular rate Rhythm: regular rhythm GI: Inspection: non-distended GI Palp: Yes Soft to palpation Skin: General skin exam: normal color Neuro: General: gait normal Speech: normal speech Extrem: General: normal to inspection Psych: Mental Status: mental status grossly normal Assessment and Plan Assessment and plan (1) GERD (gastroesophageal reflux disease): Code(s): K21.9 - Gastro-esophageal reflux disease without esophagitis Status: Acute Assessment and Plan: egd, if no findings then will need to see again her bariatric surgeon. (2) History of bariatric surgery: Code(s): Z98.84 - Bariatric surgery status Status: Acute (3) Colon polyp: Code(s): K63.5 - Polyp of colon Status: Acute Assessment and Plan: colonoscopy
--- NOTE | 2024-04-24 14:30 | SUR.OPER ---
EGD: end 1425, COLON: start 1430
[2024-04-24 14:44] VITALS: BP 104/76; PULSE 75; RESP 27; O2SAT 100
[2024-04-24 14:54] VITALS: BP 129/89; PULSE 69; RESP 14; O2SAT 100
[2024-04-24 15:04] VITALS: BP 149/97; PULSE 71; RESP 18; O2SAT 100
== END 2024-04-24 15:11 | disposition home or self-care (01) ==
PROVIDERS: PCP Nurse Practitioner Family; Visit Provider Internal Medicine Gastroenterology
PROC: 0DJ08ZZ Inspection of Upper Intestinal Tract, Via Natural or Artificial Opening Endoscopic (ICD-10-PCS; CPT 45378; principal; 2024-04-24 13:30)
DX: Z12.11 Encounter for screening for malignant neoplasm of colon (principal); K64.8 Other hemorrhoids; K29.50 Unspecified chronic gastritis without bleeding; K44.9 Diaphragmatic hernia without obstruction or gangrene; K21.9 Gastro-esophageal reflux disease without esophagitis; E78.5 Hyperlipidemia, unspecified; D64.9 Anemia, unspecified; E55.9 Vitamin D deficiency, unspecified; G47.00 Insomnia, unspecified; R03.0 Elevated blood-pressure reading, without diagnosis of hypertension; F32.A Depression, unspecified; M62.838 Other muscle spasm; F41.9 Anxiety disorder, unspecified; Z79.82 Long term (current) use of aspirin; Z98.890 Other specified postprocedural states; Z98.84 Bariatric surgery status; Z87.891 Personal history of nicotine dependence; Z86.0100 Personal history of colon polyps, unspecified; Z80.1 Family history of malignant neoplasm of trachea, bronchus and lung; Z82.49 Family history of ischemic heart disease and other diseases of the circulatory system
CPT/HCPCS: 43239; 45378; 88305; J2003; J2704; J7120

== ENCOUNTER 2024-11-14 08:41 | Observation (INO) | payer OTHER, SELFPAY ==
--- OUTSIDE RECORDS SUMMARY | 2008-09-09 09:30 | XMS_ITS | Continuity of Care Document ---
Author Organization [facility] Address [address] [place] [address] [address] [place] [address] Phone Care Team Providers Care Pencil Inspector Name Role Phone Zheng OD, Ciro Unavailable Unavailable Procedures Procedure Date Eye Exam & Treatment Advance Directives Directive Yes / No Effective Date File Name No Information Encounters Encounter Description Practice Location Reason(s) For Visit Diagnoses Date Provider Providers Copied on Encounter [facility], [address] [place] [address] [address], [place], [place], [id number], [place] tel:[phone] [facility] No Information 8-200 9 Zheng OD Ciro. [address] [address] [place] , [address], [place], [address], [place]. tel:[phone] Family History Family Member Type Diagnosis Age At Onset No Information Payers Payer name Insurance type Covered green party ID Authoriza tion(s) Medicaid [facility] [id number] Social History Type Description Quantity Date Captured Comments Sex Female Smoking Status No Information Chief Complaint And Reason For Visit No Information Reason For Referral Reason For Referral No Information History Of Present Illness Encounter Date Complaint History Of Prese nt Illness No Information Functional Status Date Functional Assessmen t No Information Instructions Date Instruction Additional Infor mation No Information Assessments Type Assessment Date No Information Patient Care Teams Name Effective Dates (start - stop) Status Members No Information
--- OUTSIDE RECORDS SUMMARY | 2008-09-09 09:30 | XMS_ITS | Continuity of Care Document ---
Author Organization [facility] Address [address] [place] [address] [address] [place] [address] Phone Care Team Providers Care Zookeeper Name Role Phone Zheng OD, Ciro Unavailable Unavailable Procedures Procedure Date Eye Exam & Treatment Advance Directives Directive Yes / No Effective Date File Name No Information Encounters Encounter Description Practice Location Reason(s) For Visit Diagnoses Date Provider Providers Copied on Encounter [facility], [address] [place] [address] [address], [place], [place], [id number], [place] tel:[phone] [facility] No Information 8-200 9 Zheng OD Ciro. [address] [facility] [place] , [address], [place], [address], [place]. tel:[phone] Family History Family Member Type Diagnosis Age At Onset No Information Payers Payer name Insurance type Covered constitution party ID Authoriza tion(s) Medicaid PENDING SALE [facility] [id number] Social History Type Description Quantity Date Captured [...]
[2024-11-14] VITALS (12 sets, daily range): BP systolic 127–187; BP diastolic 72–107; PULSE 61–85; RESP 12–20; TEMP 36.4–36.5; O2SAT 97–100; BMI 30.2
--- NOTE | ~2024-11-14 | US_ITS ---
US abdomen limited Indication: transamnitis. liver ultrasound Comparison: None Technique: Baker-scale and color Doppler images were obtained. Findings: LIVER: Unremarkable, liver contours intact, no lesions. Normal echogenicity. . GALLBLADDER/BILIARY: Post cholecystectomy. CBD 5.3 mm. [place] sign negative. PANCREAS: Pancreas limited by bowel gas. Right Kidney: Right kidney was not imaged. Impression: Unremarkable exam Reviewed, dictated and finalized at location P. Impression: Unremarkable exam
--- NOTE | ~2024-11-14 | XR_ITS ---
EXAMINATION: XR chest 2V DATE: 11/14/2024 09:32 INDICATION: Chest pain and shortness of breath TECHNIQUE: PA and lateral views of the chest were obtained. COMPARISON: Chest radiograph dated 02/24/2024 FINDINGS: The lungs remain clear with no focal airspace opacities, pulmonary edema, pleural effusion or pneumothorax. The cardiomediastinal silhouette is normal. Cholecystectomy clips in right upper quadrant. Additional postoperative changes with ringlike implant in the left epigastric region near the thoracic outlet. IMPRESSION: 1. No acute cardiopulmonary disease. Reviewed, dictated and finalized at location A.
--- NOTE | 2024-11-14 08:55 | ECG_ITS ---
Test Date: 2024-11-14 09:07:01 Measurements Intervals [place] Rate: 74 P: -7 ME: 160 QRS: -11 QRSD: 102 T: -6 QT: 422 QTc: 469 Interpretive Statements SINUS RHYTHM VOLTAGE CRITERIA FOR LEFT VENTRICULAR HYPERTROPH MINIMAL Q WAVES- HIGH LATERAL LEADS BORDERLINE T WAVE ABNORMALITY- INFERIOR LEADS BORDERLINE ECG Compared to ECG 02/25/2024 12:09:23 NO SIGNIFICANT CHANGE Electronically Signed On 11-14-2024 09:27:34 CDT by Kashif Alaniz D.O.
--- OUTSIDE RECORDS SUMMARY | 2024-11-14 08:55 | XMS_ITS | Encounter Summary ---
Author Organization [facility] Healthcare Address [address] [place] [address] Care Team Providers Care Wheelchair Rental Clerk Name Role Phone Darcie Kwan AUDIO PRODUCTION ENGINEER Primary Care Provider [phone] Darcie Kwan NP Primary Care Provider [phone] Darcie Kwan AUDIO PRODUCTION ENGINEER Unavailable [phone] Encounter Details Date Type Department Care Team (Late st Contact Info) Description 02/23/2024 Orders Only [facility] Health Information Management [address] [place] [id number] Scanning, Provider Social History Tobacco Use Types Packs/Day Years Used Date Smoking Tobacco: Never Assessed Comments Unknown Sex and Gender Information Value Date Recorded Sex Assigned at Not on file 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 Gender Identity Not on file Sexual Orientation Not on file documented as of this encounter Plan of Treatment Not on file documented as of this encounter Procedures Procedure Name Priority Date/Time Associated Diagnosis Comments CARDIOLOGY DOCUMENT SCAN 02/23/2024 documented in this encounter Results * Cardiology Document Scan (02/23/2024) Anatomical Region Laterality Modality Other us Provider Scanning CV CARDIAC SERVICES PROCEDURES Edited Result - Final documented in this encounter Visit Diagnoses Not on filedocumented in this encounter Care Teams Wheelchair Rental Clerk Relationship Specialty Start Date End Date Darcie Kwan NP [address] [address] PCP - General Family Medicine 02/23/24 02/26/24 Darcie Kwan NP [address] [address] PCP - General Family Medicine 02/27/24 Darcie Kwan NP [address] [id number] Family Medicine 02/27/24 documented as of this encounter
--- OUTSIDE RECORDS SUMMARY | 2024-11-14 08:55 | XMS_ITS | Clinical Summary ---
Author Organization [facility] [address] Address [address] [place] [address] Care Team Providers Care Armored Car Guard And Driver Name Role Phone Darcie Kwan NP Primary Care Provider [phone] Darcie Kwan NP Unavailable [phone] Allergies Active Allergy Reactions Criticality Noted Date Comments Adhesive Rash Medium 08/22/2024 Tape sensitivity when on skin for extended time causes skin to peel Metformin Other (See comments) Low 03/25/2024 Liver swelling Medications calcium carb/magnesium hydrox (ROLAIDS ORAL)Indications:h eartburn Take 2 tablet/chew tab by mouth as needed Active magnesium hydroxide (CONCENTRATED MILK OF MAGNESIA) suspension 2,400 mg/10 mLIndications:cons tipation Take 10 mL by mouth as needed Active calcium carbonate (TUMS) 500 mg (200 mg elemental calcium) chewable tabletIndications: Heartburn Take 2-4 tablet/chew tab (1,000-2,000 mg total) by mouth 2 (two) times a day as needed for indigestion or heartburn Crush medications for 2 weeks after surgery, after the 2 weeks may take whole pills 09/03/19 25 Active simethicone 250 mg capsuleIndications :Flatulence,gas pains Take 1 tablet/capsule by mouth 3 (three) times a day as needed (gas pains) Crush medications 09/03/19 25 Active QUEtiapine (SEROquel) 25 mg tabletIndications: Generalized Anxiety Disorder Take 1 tablet (25 mg total) by mouth nightly at bedtime. Crush medications for 2 weeks after surgery, after the 2 weeks may take whole pills 09/03/19 25 Active polyethylene glycol (MIRALAX) 17 gram/dose bulk powderIndications: constipation Take 17 g by mouth daily 116 g 09/03/19 25 Active ondansetron ODT (ZOFRAN-ODT) 4 mg disintegrating tabletIndications: Prevention of Post-Operative Nausea and Vomiting Take 1 tablet (4 mg total) by mouth every 8 (eight) hours as needed for vomiting or nausea Place under the tongue and let dissolve 20 tablet 2 09/03/19 25 Active oxyCODONE (ROXICODONE) solution 5 mg/5 mLIndications:Pain Take 5 mL (5 mg total) by mouth every 4 (four) hours as needed for pain 70 mL 09/04/19 25 Active oxyCODONE (ROXICODONE) solution 5 mg/5 mLIndications:Pain Take 5 mL (5 mg total) by mouth every 4 (four) hours as needed for pain 50 mL 09/04/19 25 Active FLUoxetine (PROzac) solution 20 mg/5 mLIndications:depr ession Take 10 mL (40 mg total) by mouth daily for 14 days 140 mL 09/05/19 25 Active FLUoxetine (PROzac) 40 mg capsuleIndications :depression Take 1 capsule (40 mg total) by mouth every morning Restart on 09/19/2024 after you have completed the liquid PRozac 09/20/19 25 Active metoprolol tartrate (LOPRESSOR) 25 mg immediate release tablet Take 0.5 tablets (12.5 mg total) by mouth 2 (two) times a day for 14 days Crush medications for 2 weeks after surgery, after the 2 week may take whole pills, restart home Metoprolol on 09/18/2024 14 tablet 09/04/19 25 Active metoprolol XL (TOPROL-XL) 25 mg extended release tabletIndications: hypertension Take 1 tablet (25 mg total) by mouth nightly Medication not crushable, restart on 09/18/2024 after you have completed the crushable Metoprolol 09/19/19 25 Active cyclobenzaprine (FLEXERIL) 10 mg tabletIndications: Muscle Spasm Take 1 tablet (10 mg total) by mouth 3 (three) times a day as needed for muscle spasms Crush medications for 2 weeks after surgery, after the 2 weeks may take whole pills 15 tablet 09/04/19 25 Active senna-docusate (PERICOLACE) 8.6-50 mg Take 1 tablet by mouth 2 (two) times a day Crush medications for 2 weeks after surgery, after the 2 weeks may take whole pills 30 tablet 09/04/19 25 Active acetaminophen (TYLENOL) solution 160 mg/5 mLIndications:Pain Take 31 mL (1,000 mg total) by mouth every 6 (six) hours as needed for pain 473 mL 09/04/19 25 Active Active Problems Problem Noted Date Diagnosed Date Hiatal hernia with GERD 07/31/2024 SERNA (dyspnea on exertion) 03/25/2024 Other chest pain 03/25/2024 Mixed hyperlipidemia 03/25/2024 Family history of early CAD 03/25/2024 Tobacco abuse 03/25/2024 Memory impairment 09/03/2013 Encounters Date Type Department Care Team Description 10/02/2024 9:30 AM CDT [facility] Minimally Invasive Surgery [address] [place] [address] 12th Floor, [place] [address] Esau Saravia MD PhD Hiatal hernia with GERD (Primary Dx) 09/02/2024 7:30 AM CDT - 09/02/2024 10:10 AM CDT Surgery [facility] Operating Room [address] [place] [address] Esau Saravia MD PhD XI HIATAL HERNIA WITH LINX LAPAROSCOPIC ROBOTIC ASSISTED 09/02/2024 7:29 AM CDT Anesthesia Event [facility] Operating Room [address] [place] [address] Ping Loza DO Mallette, Allison Anne, NP 09/02/2024 5:10 AM CDT - 09/03/2024 2:00 PM CDT Hospital Encounter [facility] [address] [place] [address] Esau Saravia MD PhD Hiatal hernia with GERD (Primary Dx) Discharge Disposition: Discharge to home or self care 08/28/2024 Telephone [facility] ([facility]) - [facility]imally Invasive Surgery [address] [facility] 12th Floor, [place] [address] Kavita Nelson RN 08/22/2024 3:30 PM CDT Pre-Admission Testing [facility] Center for Preoperative Assessment and Planning [facility] ([facility]) [address] [place] [id number] Preoperative testing (Primary Dx) from Last 3 Months Surgical History Surgery Date Site/Laterality Comments CARDIAC CATHETERIZATION Dr. Faria at [facility] Multiple times 2/2 to PCOS TOTAL ABDOMINAL HYSTERECTOMY LAPAROSCOPY multiple infertility surgeries CHOLECYSTECTOMY laparoscopic SLEEVE GASTROPLASTY 02/14/2016 - 02/12/2017 and three abdominal hernia repairs UMBILICAL HERNIA REPAIR with mesh UPPER GASTROINTESTINAL ENDOSCOPY COLONOSCOPY Medical History Medical History Date Comments Angina at rest Dyspnea Migraine GERD (gastroesophageal reflux disease) Major depression Anxiety Hiatal hernia Chronic constipation Chronic diarrhea Hypertension Family History Medical History Relation Name Comments Lung cancer Father Rheum arthritis Mother Relation Name Status Comments Father Mother Alive Social History Tobacco Use Types Packs/Day Years Used Date Smoking Tobacco: Former Cigarettes 0.5 30 1 995 - 02/14/2024 Smokeless Tobacco: Never Tobacco Cessation:Counseling Given: Not Answered AUDIT-C Answer Date Recorded Q1: How often do you have a drink containing alc ohol? 2-4 times a month 09/02/2024 Q2: How many drinks containi ng alcohol do you have on a typical day when you are drinking? 7 to 9 09/02/2024 Q3: How often do you have si x or more drinks on one occasion? Weekly 09/02/2024 Personal Safety Answer Date Recorded Have you ever been in or are you currently in a harmful physical or emotional relationship or is someone making you feel afraid or unsafe? Denies 09/02/2024 Comments No Sex and Gender Information Value Date Recorded Sex Assigned at Not on file Legal Sex Female 11:55 AM DIRECTOR PROFESSIONAL SERVICES Gender Identity Not on file Sexual Orientation Not on file Obstetrics History Last Filed Vital Signs Vital Sign Reading Time Taken Comments Blood Pressure 129/80 09/03/2024 12:20 PM CDT Pulse 64 09/03/2024 12:20 PM CDT Temperature 37 C (98.6 F) 09/03/2024 12:20 PM CDT Respiratory Rate 18 09/03/2024 12:20 PM CDT Oxygen Saturation 100% 09/03/2024 12:20 PM CDT Inhaled Oxygen Concentration - - Weight 75.3 kg (166 lb) 09/02/2024 1:30 PM CDT Height 165.1 cm (5' 5) 09/02/2024 1:30 PM CDT Body Mass Index 27.62 09/02/2024 1:30 PM CDT Plan of Treatment Health Maintenance Due Date Last Done Comments Breast Cancer Screening-Mammogram 1977 Colon Cancer Screening-Colonoscopy 1977 Depression Screening 1977 Hepatitis C Screening 1977 DTaP/Tdap/Td Vaccine (1 - Tdap) 1988 Hepatitis B Screening 12/08/1995 Regular Well Visit/Exam 18-64 12/08/1995 Influenza Vaccine (#1) 2024 11/14/2012 HPV Vaccines Aged Out No longer eligi ble based on patient's age to complete this topic Pneumococcal vaccine <65 Aged Out No longer eligible based on patient's age to complete this topic Medical Devices Implanted Type Area Mangle Roller Device Identifier Shelf Expiration Date Model / Serial / Lot [employer] Linx Gastrointestinal 17 Bead 1.5 Ruby System Implant Gerd [id number] - Sn/A - [id number] Implanted:Qty: 1 on 09/02/2024 by Esau Saravia MD PhD at [facility] Other - see comments N/A: Esophagus [employer] [id number] 09/03/2024 [id number] / N/A / [id number] Description:Linx Reflux veena gement system Procedures Procedure Name Priority Date/Time Associated Diagnosis Comments XR ABDOMEN AP 1 VIEW IP Routine 09/02/2024 10:55 AM CDT FL AN PROCEDURE PLACEHOLDER Routine 08/14 7:56 AM CDT FL AN ELECTIVE ENDOTRACHEAL AIRWAY Routine 09/02/2024 7:56 AM CDT ESOPHAGOGASTRODUODENOSCOPY 09/02 7:31 AM CDT Hiatal hernia with GERD Special Needs EGD XI HIATAL HERNIA WITH LINX LAPAROSCOPIC ROBOTIC ASSISTED 09/02/2024 7:31 AM CDT Hiatal hernia with GERD Special Needs EGD EGFR Routine 08/22/2024 4:23 PM CDT Preoperative testing CBC WITHOUT DIFFERENTIAL Routine 025 4:23 PM CDT Preoperative testing BASIC METABOLIC PANEL Routine 08/22/2024 4:23 PM CDT Preoperative testing from Last 3 Months Results * XR Abdomen Ap 1 Vw (09/02/2024 10:55 AM CDT) Anatomical Region Laterality Modality Body, Abdomen N/A Computed Radiogr aphy 09/02/2024 11:1 9 AM CDT Impressions 09/02/2024 11:27 AM CDT LINX device projected over the gastroesophageal junction. Postoperative changes in the left upper quadrant. Gas within the left abdominal wall, likely secondary to postoperative changes. Cholecystectomy clips projected over right upper quadrant. Normal bowel gas pattern. Left basilar atelectasis. Dictated by: Leeanna Turner M.D. The radiology attending physician has personally reviewed this study, and had reviewed and/or edited this written report and agrees with it. Electronically signed by: Gregg Luevano M.D. Narrative 09/02/2024 11:27 AM CDT EXAMINATION: Abdomen, one view. HISTORY: Status post hiatal hernia repair with LINX COMPARISON: Outside CT 02/24/2024 Procedure Note Gregg Luevano MD - 09/02/2024 EXAMINATION: Abdomen, one view. HISTORY: Status post hiatal hernia repair with LINX COMPARISON: Outside CT 02/24/2024 IMPRESSION: LINX device projected over the gastroesophageal junction. Postoperative changes in the left upper quadrant. Gas within the left abdominal wall, likely secondary to postoperative changes. Cholecystectomy clips projected over right upper quadrant. Normal bowel gas pattern. Left basilar atelectasis. Dictated by: Leeanna Turner M.D. The radiology attending physician has personally reviewed this study, and had reviewed and/or edited this written report and agrees with it. Electronically signed by: Gregg Luevano M.D. us Mayito Rodriguez MD IMG XR PROCEDURES Final Result * FL AN ELECTIVE ENDOTRACHEAL AIRWAY, FL AN PROCEDURE PLACEHOLDER (09/02/2024 7:56 AM CDT) Narrative Pola Stone CRNA - 09/02/2024 7:56 AM CDT Pola Stone CRNA 09/02/2024 7:56 AM Airway Patient location: OR Urgency: elective Indications for airway management: anesthesia and airway protection Difficult airway: no Emergent airway documentation: Risks and benefits discussed: yes Consent obtained: yes Consent given by: patient Airway prep: Preoxygenated: yes Patient position: sniffing Mask difficulty assessment: 0 - not attempted Spontaneous ventilation during airway: absent Sedation level during airway: GA Final airway details: Final airway type: endotracheal airway Tube type: ETT ETT size: 7.0 mm Cuffed: yes Technique used for successful ETT placement: video laryngoscopy Devices/Methods used in placement: intubating stylet Insertion site: oral Blade type: Shaun Video blade type: Jaramillo Blade size: 3 Cormack-Lehane (video): grade I - full view of glottis Cuff inflated with: air ETT to teeth: 21 cm Placement verified by: auscultation and CO2 detection Airway secured with: silk tape Number of attempts: 1no us Ping Loza DO ANESTHESIA ORDERABLES Final Result * eGFR (08/22/2024 4:23 PM CDT) eGFR >90 >=60 mL/min/1. 73 m2 Comment: Interpretive Data Reference Interval Normal >/= 90 mL/min/1.73m2 Mildly decreased* 60 - 89 mL/min/1.73m2 Mildly to moderately decreased 45 - 59 mL/min/1.73m2 Moderately to severely decreased 30 - 44 mL/min/1.73m2 Severely decreased 15 - 29 mL/min/1.73m2 Kidney Failure < 15 mL/min/1.73m2 *Relative to young adult level Estimated glomerular filtration rate is determined by the 2020 CKD-EPI equation recommended by the National Kidney Foundation (A Unifying Approach to GFR Estimation: Recommendations of the NKF-ASK Task Force on Reassessing the Inclusion of Race in Diagnosing Kidney Disease, JASN 2020). The CKD-EPI equation should not be used for patients with unstable renal function and has not been validated in children and those over 70. Current interpretive data was last reviewed 2020. Blood 08/22/2024 4:23 PM CDT 08/22/2024 5:04 PM CDT Surekha Torres MD LAB BLOOD ORDERABLES Final Res ult [facility] Department [place] [address] * (ABNORMAL) CBC without differential (08/22/2024 4:23 PM CDT) WBC 8.63 3.80 - 9.90 K/cumm Hgb 12.2 11.9 - 15.5 g/dL [facility] Hct 35.1(L) 35.6 - 45.5 % [facility] Plt 256 150 - 400 K/cumm [facility] MPV 9.8 9.1 - 12.3 fL [facility] RBC 3.87(L) 3.90 - 5.20 M/cumm [facility] MCV 90.7 81.3 - 96.4 fL [facility] MCH 31.5 27.1 - 33.3 pg [facility] MCHC 34.8 32.3 - 35.7 g/dL [facility] RDW CV 12.5 11.1 - 14.9 % [facility] RDW SD 41.3 35.7 - 48.1 fL [facility] NRBC abs 0.00 0.00 - 0.01 K/cumm [facility] Blood 08/22/2024 4:23 PM CDT 08/22/2024 5:04 PM CDT Surkeha Torres MD LAB BLOOD ORDERABLES Final Res ult [facility] Department [place] [address] * (ABNORMAL) Basic metabolic panel (08/22/2024 4:23 PM CDT) Sodium 142 135 - 145 mmol/L Potassium, pl 4.0 3.3 - 4.9 mmol/L [facility] Chloride 108 97 - 110 mmol/L [facility] CO2 23 22 - 32 mmol/L [facility] Anion gap 11 2 - 15 mmol/L [facility] BUN 9 6 - 25 mg/dL [facility] Creatinine 0.54(L) 0.60 - 1.10 mg/dL [facility] Glucose 91 70 - 199 mg/dL [facility] Comment: Interpretive Data Fasting glucose >/= 126 mg/dl is diagnostic for diabetes. Fasting is defined as no caloric intake for at least 8 hours. Fasting glucose between 100 mg/dl to 125 mg/dl is diagnostic of prediabetes. In a patient with classic symptoms of hyperglycemia or hyperglycemic crisis, a random glucose >/= 200 mg/dl is diagnostic for diabetes. In the absence of unequivocal hyperglycemia, results should be confirmed by repeat testing. The classification and Diagnosis of Diabetes Diabetes Care 2021; 46: S19-S40. Current interpretive data was last revised 2022. Calcium 9.5 8.5 - 10.3 mg/dL [facility] Blood 08/22/2024 4:23 PM CDT 08/22/2024 5:04 PM CDT Surekha Torres MD LAB BLOOD ORDERABLES Final Res ult [facility] Department [place] [address] from Last 3 [place] [id number] [employer] OPEN ACCESS [employer] OPEN ACCESS [employer] OPEN ACCESS Advance Directives For more information, please contact: [phone] * Full Code (Latest Code Status on File) Date Activated Date Inactivated Comments 09/02/2024 1:18 PM 09/03/2024 6:27 PM Care Teams Armored Car Guard And Driver Relationship Specialty Start Date End Date Darcie Kwan NP [address] [employer] [address] PCP - General Family Medicine 02/27/24 Darcie Kwan NP [address] [address] Family Medicine 02/27/24
[2024-11-14 09:08] LABS: Hematocrit 36.0 % (37.0-47.0); Hemoglobin 12.0 g/dL (12.0-15.0); Immature Granulocyte Percent A 0.2 % (0-0.5); Lymphocytes Absolute Auto 1.85 K/mm3 (0.9-3.2); Mean Corpuscular HGB Conc 33.3 g/dl (32-36); Mean Corpuscular Hemoglobin 31.3 pg (26-34); Mean Corpuscular Volume 93.8 fl (80-100); Nucleated Red Blood Cells Absolute Auto 0.000 K/mm3 (0.0-0.012); Nucleated Red Blood Cells Perc 0.0 % (0.0-0.2); Platelet Count Result 265 k/mm3 (150-375); Red Blood Count 3.84 M/mm3 (4.2-5.4); White Blood Count 4.7 K/mm3 (4.5-10.0)
[2024-11-14 09:22] LABS: Alanine Aminotransferase 269 U/L (6-35); Albumin Level 4.3 g/dL (3.5-5.1); Alkaline Phosphatase 92 U/L (38-126); Anion Gap 9 mmol/L (4-12); Aspartate Amino Transferase 60 U/L (14-36); Bilirubin,Total 0.5 mg/dL (0.2-1.3); Blood Urea Nitrogen 13 mg/dL (7-17); Calcium 9.2 mg/dL (8.4-10.2); Carbon Dioxide 23 mmol/L (22-30); Chloride 105 mmol/L (98-107); Estimated CRCL calculation 132 ml/min; Estimated Glomerular Filt Rate > 60; Glucose 90 mg/dL (65-110); Lipase 162 U/L (23-300); Potassium 3.9 mmol/L (3.4-5.0); Sodium 137 mmol/L (137-145); Total Protein 7.0 g/dL (6.3-8.2)
[2024-11-14 09:24] LABS: INR 0.9; Partial Thromboplastin Time 28.7 Seconds (22.3-36.8); Prothrombin Time 12.3 Seconds (11.1-14.7)
[2024-11-14 09:32] LABS: Troponin I < 0.012 ng/mL (0.000-0.034)
--- NOTE | 2024-11-14 09:35 | ED.GENADULT ---
HPI - General Adult General Chief complaint: Recheck/Abnormal Lab/Rx Stated complaint: High blood pressure Time Seen by Provider: 11/14/24 08:57 History of Present Illness HPI narrative: Sara Handely is a 48-year-old female with past medical history of hypertension, 8 weeks postop hiatal hernia surgery, anxiety, previous smoker who reports was had a dentist appointment today and blood pressure was 200 systolic and was sent here for further evaluation. She states that she did take her medications today she is currently on metoprolol for her blood pressure and she was stressed and feeling anxious at the dentist office and they checked it multiple times and continued to be high so they sent her here. Here her blood pressure is slightly improved 160 systolic however she does state that she has been having intermittent in midsternal to left-sided chest pain stabbing in nature currently rating 8/10 she states that she has been feeling shortness of breath with this and over the past few days has felt like her heart is beating really hard out of her chest. She denies knowing of anything that makes her pain better or worse. She states that she was admitted here about 10 months ago and had an abnormal echo done. Related Data Home Medications ?Medication ?Instructions ?Recorded ?Confirmed ?Last Taken ?Type buspirone 5 mg tablet 15 mg PO BID 03/13/24 05/28/24 Unknown History acetaminophen 325 mg tablet 650 mg PO ONCE PRN headache 04/24/24 05/28/24 04/24/24 08:00 History (Tylenol) Allergies Allergy/AdvReac Type Severity Reaction Status Date / Time metformin Allergy Unknown Other Verified 11/14/24 08:54 varenicline Allergy Unknown Other Verified 11/14/24 08:54 goucophage Allergy Unknown unknown Uncoded 05/24/24 08:26 Review of Systems Review of Systems: All systems reviewed & are unremarkable except as noted in HPI and below PMFSH Past Medical History Medical History Endometriosis Eczema Gastric ulcer Asthma Hypertension Hiatal hernia Colon polyp Hyperlipidemia Migraines Vitamin D deficiency Insomnia Screening mammogram for breast cancer Tobacco abuse Anemia Anxiety Allergies Depression GERD (gastroesophageal reflux disease) Surgical History Surgical History History of sleeve gastrectomy 2017 S/P cholecystectomy H/O hernia repair History of hysterectomy Family History Family History Father Family history of lung cancer Hypertension Heart disease Cancer Grandparent Cancer Hypertension Depression Diabetes mellitus Anxiety Acute myocardial infarction Heart disease Mother Hypertension Depression Anxiety Sibling Depression Anxiety Grandparent Cancer Maternal grandmother Cerebrovascular accident Other Family history of allergic disorder Family history of cardiovascular disease Social History Social History Smoking packs per day: 1 Smoking cigarettes per day: 20.0 Years smoked: 33 Smoking pack-years: 33.00 Smoking status: Former smoker Tobacco type: cigarettes Alcohol intake: former Drinks per week: 1 Alcohol use details: Rarely Substance use: never Substance use type: does not use Do You Feel Safe in your Home?: Yes Lack of Transportation: No Lack of Food: Never True Current Housing: I Have Housing Concerned About Future Housing: No Difficulty Paying Gas/Electric Bills: No Difficulty Paying for Meds: No Currently Unemployed: No Education: High School Diploma/GED Difficulty w/ Childcare or Family Care: No Living arrangements: with family Spiritual care concerns: No Agree to blood products: Yes Exam Narrative: GENERAL: Well-appearing, well-nourished, and in no acute distress. HEAD: Normocephalic, atraumatic. EYES: PERRLA and EOMI. ENT: Nares clear, no rhinorrhea or epistaxis. Mucous membranes moist. Oropharynx without tonsillar hypertrophy exudate or other lesions. NECK: Supple. No adenopathy or masses. No carotid bruits or JVD CHEST: Clear to auscultation. No respiratory distress. No wheezes rales or rhonchi HEART: Regular rate and rhythm. No murmur heard. Normal peripheral pulses. ABDOMEN: Soft, nontender, nondistended, normal active bowel sounds. EXTREMITIES: Normal range of motion. No edema. SKIN: Warm, dry, no rash. NEURO: No focal deficits. Alert and oriented x3. PSYCH: Normal mood and affect. Course Vital Signs Vital signs: Vital Signs Temperature 36.5 C 11/14/24 08:48 Pulse Rate 72 11/14/24 08:48 Respiratory Rate 16 11/14/24 08:48 Blood Pressure 187/100 H 11/14/24 08:48 Pulse Oximetry 100 11/14/24 08:48 Oxygen Delivery Room Air 11/14/24 08:48 Temperature 36.5 C 11/14/24 08:48 Pulse Rate 65 11/14/24 16:44 Respiratory Rate 15 11/14/24 16:44 Blood Pressure 159/98 H 11/14/24 16:44 Pulse Oximetry 97 11/14/24 16:44 Oxygen Delivery Room Air 11/14/24 08:48 Medical Decision Making MDM Narrative Medical decision making narrative: 48-year-old who presents with complaints of having chest pain off and on for the past 3 days along with feeling shortness of breath and some palpitations her blood pressure was elevated at the dentist office today and was sent for further evaluation. Concern for : Cardiac Ischemia, Pulmonary embolism, htn emergency, anxiety, anemia, plan for cardiac work up including DDimer EKG - Sinus rhythm rate 74 CBC no leukocytosis, hemodynamically stable PT PTT unremarkable CMP creatinine 0.47, AST 60, ALT 269, lipase 162, 1st troponin negative D-dimer 0.31 Chest x-ray 1. No acute cardiopulmonary disease. 2nd troponin-negative Patient continue to have chest pain while here with her heart score out of 4 history abnormal echo reach out to hospitalist regarding admission for serial cardiac rule out the, Bert wanted her to do GI cocktail 1st to see if that helps his pain, patient was given this and then states that did not help her chest pain at all she had been given a couple doses of morphine and states that did seem to help some but continues to have chest pain. Patient's blood pressure has grossly improved since being here from when she was at the dentist office earlier today. She is comfortable with being admitted for cardiac rule out, Adalgisa accepts admission. Medical Records Medical records reviewed: Yes I reviewed the external patient's medical records. Vital Signs Vital Signs: Vital Signs Temperature 36.5 C 11/14/24 08:48 Pulse Rate 72 11/14/24 08:48 Respiratory Rate 16 11/14/24 08:48 Blood Pressure 187/100 H 11/14/24 08:48 Pulse Oximetry 100 11/14/24 08:48 Oxygen Delivery Room Air 11/14/24 08:48 Temperature 36.5 C 11/14/24 08:48 Pulse Rate 65 11/14/24 16:44 Respiratory Rate 15 11/14/24 16:44 Blood Pressure 159/98 H 11/14/24 16:44 Pulse Oximetry 97 11/14/24 16:44 Oxygen Delivery Room Air 11/14/24 08:48 Vitals reviewed Lab Data Lab results reviewed: Yes I reviewed the patient's lab results. 11/14/24 09:03 11/14/24 09:03 Labs: Lab Results 11/14/24 11/14/24 Range/Units 09:03 11:51 WBC 4.7 (4.5-10.0) K/mm3 RBC 3.84 L (4.2-5.4) M/mm3 Hgb 12.0 (12.0-15.0) g/dL Hct 36.0 L (37.0-47.0) % MCV 93.8 (80-100) fl MCH 31.3 (26-34) pg MCHC 33.3 (32-36) g/dl RDW 12.5 (11.5-14.5) % Plt Count 265 (150-375) k/mm3 MPV 9.5 (7.4-10.4) fl Immature Gran % (Auto) 0.2 (0-0.5) % Neut % (Auto) 46.5 (45.5-73.1) % Lymph % (Auto) 39.6 (18.3-44.2) % [place] % (Auto) 10.3 H (2.6-8.5) % Eos % (Auto) 3.0 (0-4.4) % Baso % (Auto) 0.4 (0.2-1.2) % Lymph # (Auto) 1.85 (0.9-3.2) K/mm3 [place] # (Auto) 0.5 (0.1-0.6) K/mm3 Eos # (Auto) 0.1 (0-0.3) K/mm3 Baso # (Auto) 0.0 (0.0-0.1) K/mm3 Abs Immat Gran (auto) 0.01 (0.00-0.031) K/mm3 Absolute Neuts (auto) 2.2 (1.3-6.7) K/mm3 Absolute Nucleated RBC 0.000 (0.0-0.012) K/mm3 Nucleated RBC % 0.0 (0.0-0.2) % PT 12.3 (11.1-14.7) Seconds INR 0.9 APTT 28.7 (22.3-36.8) Seconds D-Dimer 0.31 (<0.48) ug/mL Sodium 137 (137-145) mmol/L Potassium 3.9 (3.4-5.0) mmol/L Chloride 105 (98-107) mmol/L Carbon Dioxide 23 (22-30) mmol/L Anion Gap 9 (4-12) mmol/L BUN 13 (7-17) mg/dL Creatinine 0.47 L (0.7-1.0) mg/dL Estim Creat Clear Calc 132 ml/min Estimated GFR > 60 (59 - ) Glucose 90 (65-110) mg/dL Calcium 9.2 (8.4-10.2) mg/dL Total Bilirubin 0.5 (0.2-1.3) mg/dL AST 60 H (14-36) U/L ALT 269 H (6-35) U/L Alkaline Phosphatase 92 (38-126) U/L Troponin I < 0.012 < 0.012 (0.000-0.034) ng/mL Total Protein 7.0 (6.3-8.2) g/dL Albumin 4.3 (3.5-5.1) g/dL Lipase 162 (23-300) U/L Imaging Data Radiologist's impression: Impressions Chest X-Ray 11/14/24 09:37 IMPRESSION: 1. No acute cardiopulmonary disease. ECG Data EKG #1: ECG completion date: 11/14/24 ECG completion time: 09:07 Prior ECG tracings: available for review Interpretation: Rate 74 MO 160 QRSd 102 QT 422 QTc 469 --[place]-- P -7 QRS -11 T -6 SINUS RHYTHM VOLTAGE CRITERIA FOR LEFT VENTRICULAR HYPERTROPH MINIMAL Q WAVES- HIGH LATERAL LEADS BORDERLINE T WAVE ABNORMALITY- INFERIOR LEADS BORDERLINE ECG Compared to ECG 02/25/2024 12:09:23 NO SIGNIFICANT CHANGE Discharge Plan Discharge Clinical Impression: Chest pain Qualifiers: Chest pain type: unspecified Qualified Code(s): R07.9 - Chest pain, unspecified Hypertension Qualifiers: Hypertension type: primary hypertension Qualified Code(s): I10 - Essential (primary) hypertension Patient Disposition: Still a Patient Condition: Stable Quality HEART score for chest pain patients History: moderately suspicious ECG: non specific repolarization disturbance/LBTB/PM Age: > 45 and < 65 years Risk factors: 1 or 2 risk factors Troponin: < or = to 1x normal limit Heart score: 4
--- OUTSIDE RECORDS SUMMARY | 2024-11-14 09:50 | XMS_ITS | Encounter Summary ---
Author Organization [facility] Healthcare Address [address] [place] [address] Care Team Providers Care Concrete Grinder Operator Name Role Phone Darcie Kwan CURB WORKER Primary Care Provider [phone] Darcie Kwan NP Primary Care Provider [phone] Darcie Kwan CURB WORKER Unavailable [phone] Encounter Details Date Type Department Care Team (Late st Contact Info) Description 02/23/2024 [place] [facility] [place] [address] [place] [address] Scanning, Provider Social History Tobacco Use Types Packs/Day Years Used Date Smoking Tobacco: Never Assessed Comments Unknown Sex and Gender Information Value Date Recorded Sex Assigned at Not on file 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
--- OUTSIDE RECORDS SUMMARY | 2024-11-14 09:50 | XMS_ITS | Clinical Summary ---
Author Organization [facility] [address] Address [address] [place] [id number] Care Team Providers Care Pick Up Truck Driver Name Role Phone Darcie Kwan NP Primary Care Provider [phone] Darcie Kwan NP Unavailable [phone] Allergies Active Allergy Reactions Criticality Noted Date [...] Care Team Description 10/02/2024 9:30 AM CDT [facility] Minimally Invasive Surgery [address] [place] [address] 12th Floor, [place] [address] Esau Saravia MD PhD Hiatal hernia with GERD (Primary Dx) 09/02/2024 7:30 AM CDT - 09/02/2024 10:10 AM CDT Surgery [facility] Operating Room [address] [place] [address] Esau Saravai MD PhD XI HIATAL HERNIA WITH LINX LAPAROSCOPIC ROBOTIC ASSISTED 09/02/2024 7:29 AM CDT Anesthesia Event [facility] Operating Room [address] [place] [address] Ping Loza DO Mallette, Allison Anne, NP 09/02/2024 5:10 AM CDT - 09/03/2024 2:00 PM CDT Hospital Encounter [facility] [address] [place] [address] Esau Saravia MD PhD Hiatal hernia with GERD (Primary Dx) Discharge Disposition: Discharge to home or self care 08/28/[address] [facility] Advanced [facility] ([facility]) - [facility] Minimally Invasive Surgery [address] [facility] 12th Floor, [place] [address] Kavita Nelson RN 08/22/2024 3:30 PM CDT Pre-Admission Testing [facility] Center for Preoperative Assessment and Planning 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 Gender Identity Not on file Sexual Orientation [...] this topic Medical Devices Implanted Type Area Hand Stitcher Device Identifier Shelf Expiration Date Model / Serial / Lot [employer] Linx Gastrointestinal 17 Bead 1.5 Ruby System Implant Gerd [id number] - Sn/A - [id number] Implanted:Qty: 1 on 09/02/2024 by Esau Saravia MD PhD at [facility] Other - see comments N/A: Esophagus [employer] [id number] 09/03/2024 [facility] [place] / N/A / [id number] Description:Linx Reflux veena gement system Procedures Procedure Name Priority Date/Time Associated Diagnosis Comments XR ABDOMEN AP 1 VIEW IP Routine 09/02/2024 10:55 AM CDT AK AN PROCEDURE PLACEHOLDER Routine 08/14 7:56 AM CDT AK AN ELECTIVE ENDOTRACHEAL AIRWAY Routine 09/02/2024 7:56 [...] MD IMG XR PROCEDURES Final Result * AK AN ELECTIVE ENDOTRACHEAL AIRWAY, AK AN PROCEDURE PLACEHOLDER (09/02/2024 7:56 AM CDT) [...] MD LAB BLOOD ORDERABLES Final Res ult [facility] Department [place] [address] * (ABNORMAL) CBC without differential (08/22/2024 4:23 PM CDT) WBC 8.63 3.80 - 9.90 K/cumm Hgb 12.2 11.9 - 15.5 g/dL [facility] Hct 35.1(L) 35.6 - 45.5 % [facility] Plt 256 150 - 400 K/cumm [facility] MPV 9.8 9.1 - 12.3 fL [facility] RBC 3.87(L) 3.90 - 5.20 M/cumm [facility] MCV 90.7 81.3 - 96.4 fL [facility] MCH 31.5 27.1 - 33.3 pg [facility] MCHC 34.8 32.3 - 35.7 g/dL [facility] RDW CV 12.5 11.1 - 14.9 % [facility] RDW SD 41.3 35.7 - 48.1 fL [facility] NRBC abs 0.00 0.00 - 0.01 K/cumm [facility] Blood 08/22/2024 4:23 PM CDT 08/22/2024 5:04 PM CDT Surekha Torres MD LAB BLOOD ORDERABLES Final Res ult [facility] Department [place] [address] * (ABNORMAL) Basic metabolic panel (08/22/2024 4:23 PM CDT) Sodium 142 135 - 145 mmol/L Potassium, pl 4.0 3.3 - 4.9 mmol/L [facility] Chloride 108 97 - 110 mmol/L [facility] CO2 23 22 - 32 mmol/L [facility] Anion gap 11 2 - 15 mmol/L [facility] BUN 9 6 - 25 mg/dL [facility] Creatinine 0.54(L) 0.60 - 1.10 mg/dL [facility] Glucose 91 70 - 199 mg/dL [facility] Comment: Interpretive Data Fasting glucose >/= [...] 2022. Calcium 9.5 8.5 - 10.3 mg/dL [facility] Blood 08/22/2024 4:23 PM CDT 08/22/2024 5:04 PM CDT Surekha Torres MD LAB BLOOD ORDERABLES Final Res ult [facility] Department [place] [address] from Last 3 [place] [phone] [employer] OPEN ACCESS [employer] OPEN ACCESS [employer] OPEN ACCESS Advance Directives For more information, please contact: [phone] * Full Code (Latest Code Status on File) Date Activated Date Inactivated Comments 09/02/2024 1:18 PM 09/03/2024 6:27 PM Care Teams Pick Up Truck Driver Relationship Specialty Start Date End Date Darcie Kwan NP [address] [address] PCP - General Family Medicine 02/27/24 Darcie Kwan NP [address] [address] Family Medicine 02/27/24
[2024-11-14] MEDS: ASPIRIN 81 MG CHEWABLE TABLET 324 MG PO (09:56)
[2024-11-14] MEDS: MORPHINE SULFATE (*CRX) 4 MG/ML INJ 2 MG IV PUSH (09:56)
[2024-11-14 12:20] LABS: Troponin I < 0.012 ng/mL (0.000-0.034)
--- NOTE | 2024-11-14 12:30 | ECG_ITS ---
Test Date: 2024-11-14 12:36:12 Measurements Intervals [place] Rate: 62 P: -16 KS: 147 QRS: -12 QRSD: 86 T: -17 QT: 452 QTc: 461 Interpretive Statements SINUS RHYTHM VOLTAGE CRITERIA FOR LVH T WAVE ABNORMALITY IN INFERIOR LEADS- CONSIDER ISCHEMIA BASELINE ARTIFACT- I, III, AVR, AVL, AVF ABNORMAL ECG Compared to ECG 11/14/2024 09:07:01 POSSIBLE ISCHEMIA NOW PRESENT Electronically Signed On 11-14-2024 12:54:02 CDT by Kashif Alaniz D.O.
[2024-11-14] MEDS: MORPHINE SULFATE (*CRX) 4 MG/ML INJ IV PUSH (12:32)
[2024-11-14] MEDS: BELLADONNA ALK/PHENOB ELIX 10 ML, MAG HYDROX/ALUMINUM HYD/SIMETH 30 ML, LIDOCAINE 2% VI... PO (13:12)
[2024-11-14 15:41] LABS: Troponin I < 0.012 ng/mL (0.000-0.034)
--- NOTE | 2024-11-14 16:23 | PM.IMHP ---
H&P: HPI History of Present Illness Date/Time: 11/14/24 16:23 Chief Complaint: Hypertension, Chest Pain Narrative: 48 y/o F with PMH of hypertension, 8 weeks postop hiatal hernia surgery, anxiety, and previous smoker presents here with hypertension and chest pain. The patient presents here from a local dentist office for further evaluation of hypertension and chest pain. She was at the dentist office today when it was noted that the patient was significantly hypertensive. She reports her systolic was in the 200s despite multiple checks. She reports at that time she was anxious, but she did not feel like it was significant. Upon arrival to the emergency department her blood pressure was 187/100. She reports compliance with her antihypertensive medications - has been told outpatient that it has been elevated lately and they have been considering increasing her dosage. She is additionally reporting that she has been experiencing intermittent midsternal to left-sided chest pain for the past 3-4 days. She further describes the chest pain as a pounding, left sided, radiation described as a numbness in her shoulders and face, intermittent, lasts around 1-2 hours, no aggravating factors, and alleviated minimally with Tylenol and ibuprofen. She reports accompanying palpitations - pounding quality, like she just exerted herself, occurs at rest, and can be felt in her whole body. Intermittently accompanied by shortness of breath, nausea with intermittent/minimal vomiting, diaphoresis, or dizziness. Denies abdominal pain, fever, chills, body aches, or diarrhea that is different from her baseline. Review of chart reveals a previous admission in February of 2024. At that time she presented with shortness of breath and dyspnea. She underwent a left heart catheterization which was essentially normal on 02/25/2023 and had an echo completed which showed normal systolic function, grade 1 diastolic dysfunction, and mild valvular disease. She was discharged home on Carafate and Protonix for acid reflux and referred for an outpatient EGD. Had a hiatal hernia repair and has since had drastic improvement in her GERD-symptoms, does not feel her symptoms are similar to that at all. Patient also has anxiety and panic attacks, however this does not feel similar to those events either. Initial VS at presentation: 97.7? F, HR 72, R 16, 187/100, and 100% on RA. ED workup showed: No leukocytosis, no anemia, normal coags, negative D-dimer, creatinine 0.47 and GFR >60, AST 60, ALT 69, initial troponin negative, lipase within normal limits. CXR showed no acute cardiopulmonary disease. Initial EKG showed sinus rhythm, rate 74, voltage criteria for LVH, minimal Q-waves high lateral leads, borderline T-wave abnormality. Review of Systems Review of Systems: All systems reviewed & are unremarkable except as noted in HPI and below PMFSH Past Medical History Medical History Endometriosis Eczema Gastric ulcer Asthma Hypertension Hiatal hernia Colon polyp Hyperlipidemia Migraines Vitamin D deficiency Insomnia Screening mammogram for breast cancer Tobacco abuse Anemia Anxiety Allergies Depression GERD (gastroesophageal reflux disease) Surgical History Surgical History History of sleeve gastrectomy 2017 S/P cholecystectomy H/O hernia repair History of hysterectomy Family History Family History Father Family history of lung cancer Hypertension Heart disease Cancer Grandparent Cancer Hypertension Depression Diabetes mellitus Anxiety Acute myocardial infarction Heart disease Mother Hypertension Depression Anxiety Sibling Depression Anxiety Grandparent Cancer Maternal grandmother Cerebrovascular accident Other Family history of allergic disorder Family history of cardiovascular disease Social History Social History Smoking packs per day: 1 Smoking cigarettes per day: 20.0 Years smoked: 33 Smoking pack-years: 33.00 Smoking status: Former smoker Tobacco type: cigarettes Alcohol intake: current Drinks per week: 1 Alcohol use details: Rarely Substance use: never Substance use type: does not use Do You Feel Safe in your Home?: Yes Lack of Transportation: No Lack of Food: Never True Current Housing: I Have Housing Concerned About Future Housing: No Difficulty Paying Gas/Electric Bills: No Difficulty Paying for Meds: No Currently Unemployed: No Education: High School Diploma/GED Difficulty w/ Childcare or Family Care: No Living arrangements: with family Spiritual care concerns: No Agree to blood products: Yes Meds Home Medications and Allergies Home Medications ?Medication ?Instructions ?Recorded ?Confirmed ?Type aspirin 81 mg tablet,delayed 81 mg PO QAM #30 tabs 02/26/24 11/14/24 Rx release fluoxetine 40 mg capsule 40 mg PO DAILY #30 caps 02/26/24 11/14/24 Rx quetiapine 25 mg tablet (Seroquel) 25 mg PO QHS #30 tabs 04/23/24 11/14/24 Rx metoprolol succinate 25 mg 12.5 mg (1/2 x 25 mg) PO DAILY #15 10/09/24 11/14/24 Rx tablet,extended release 24 hr tabs Allergies Allergy/AdvReac Type Severity Reaction Status Date / Time metformin Allergy Unknown Other Verified 11/14/24 08:54 [email or web address] Allergy Unknown Other Verified 11/14/24 08:54 goucophage Allergy Unknown unknown Uncoded 05/24/24 08:26 Vital Signs Vital Signs - 24 hr 11/14/24 08:48 11/14/24 09:01 11/14/24 09:02 Temperature 97.7 F Pulse Rate 72 73 Respiratory Rate 16 17 12 Blood Pressure 187/100 H 169/107 H Pulse Oximetry 100 100 100 Oxygen Delivery Room Air 11/14/24 10:02 11/14/24 11:40 11/14/24 12:37 Temperature Pulse Rate 64 61 85 Respiratory Rate 20 16 17 Blood Pressure 155/105 H 141/101 H 140/72 Pulse Oximetry 97 99 99 Oxygen Delivery 11/14/24 13:15 11/14/24 14:19 Temperature Pulse Rate 63 68 Respiratory Rate 16 15 Blood Pressure 162/105 H 157/93 H Pulse Oximetry 98 98 Oxygen Delivery Exam Const: General: comfortable and no acute distress Other: , female, nontoxic appearance HENMT: Face/Nose/Sinus: Normal nares present Mouth: Yes moist mucous membranes Eyes: General: appearance normal, both eyes and all related structures Sclera: sclerae normal Pupils: Equal, round and reactive pupils present EOM: EOMs intact bilaterally Resp: Effort & Inspection: normal respiratory effort Auscultation: clear to auscultation bilaterally Cardio: Rate: regular rate Rhythm: regular rhythm Other: S1-S2 present without murmur, rub, ectopy GI: Other: Abdomen soft, nondistended, nontender. Normoactive bowel sounds in all quadrants. Skin: General skin exam: normal color and no rashes or lesions noted Wounds: no wounds Neuro: Speech: normal speech Motor exam (neuro): 5/5 motor strength present throughout Sensory Exam: normal sensation Other: A&O x4 Extrem: General: normal to inspection Psych: Mental Status: mental status grossly normal Affect: normal affect Other: Good insight and judgment, pleasant H&P: Results Labs Labs: Short CBC 11/14/24 Range/Units 09:03 WBC 4.7 (4.5-10.0) K/mm3 Hgb 12.0 (12.0-15.0) g/dL Hct 36.0 L (37.0-47.0) % Plt Count 265 (150-375) k/mm3 BMP 11/14/24 09:03 Sodium 137 Potassium 3.9 Chloride 105 Carbon Dioxide 23 BUN 13 Creatinine 0.47 L Glucose 90 Calcium 9.2 Cardiac Enzymes 11/14/24 11/14/24 11/14/24 Range/Units 09:03 11:51 15:04 Troponin I < 0.012 < 0.012 < 0.012 (0.000-0.034) ng/mL Liver Function 11/14/24 Range/Units 09:03 Total Bilirubin 0.5 (0.2-1.3) mg/dL AST 60 H (14-36) U/L ALT 269 H (6-35) U/L Alkaline Phosphatase 92 (38-126) U/L Albumin 4.3 (3.5-5.1) g/dL Assessment and Plan Assessment and plan (1) Chest pain: Qualifiers: Chest pain type: unspecified Qualified Code(s): R07.9 - Chest pain, unspecified Code(s): R07.9 - Chest pain, unspecified Status: Acute Assessment and Plan: Patient reporting intermittent chest pain for the past 3-4 days that is accompanied by palpitations that she describes as pounding and as if she exerted herself. Intermittently accompanied by shortness of breath, nausea with intermittent/minimal vomiting, diaphoresis, or dizziness. Has history of GERD and anxiety, episodes are not consistent with her previous experiences with either. Troponin negative x3. Initial EKG showed no significant changes compared to prior per associate financial representative's interpretation. However repeat EKG done same day did show possible ischemia now present. Nitro SL p.r.n.. Started on aspirin. Ticket Chopper As[employer]er consulted. Admitted to IMU for close monitoring and telemetry. Did have negative LHC in February 2024. Also noted to be hypertensive at arrival at 187/100, reports her PCP has noticed this trend and has been discussing increasing her antihypertensive is, suspect this is a large component of her chest pain and possible EKG changes. (2) Hypertension: Qualifiers: Hypertension type: primary hypertension Qualified Code(s): I10 - Essential (primary) hypertension Code(s): I10 - Essential (primary) hypertension Status: Acute Assessment and Plan: - chronic, currently uncontrolled. Arrived 187/100. Did have brief reduction to a systolic of 150s to 160s with morphine. Per patient her PCP has been considering increasing her antihypertensives. - continue metoprolol ER 12.5 mg daily - add amlodipine 5 mg daily, monitor response (3) Hyperlipidemia: Qualifiers: Hyperlipidemia type: pure hypertriglyceridemia Qualified Code(s): E78.1 - Pure hyperglyceridemia Code(s): E78.5 - Hyperlipidemia, unspecified Status: Chronic Assessment and Plan: Reviewed chart, last lipid panel done in February 2024. Triglycerides 217, cholesterol/LDL/HDL within normal limits. Not currently on a statin. (4) GERD (gastroesophageal reflux disease): Qualifiers: Esophagitis presence: esophagitis presence not specified Qualified Code(s): K21.9 - Gastro-esophageal reflux disease without esophagitis Code(s): K21.9 - Gastro-esophageal reflux disease without esophagitis Status: Chronic Assessment and Plan: History of acid reflux s/p hiatal hernia repair. A significant reduction in symptoms since surgery. Tums p.r.n.. Plan Diet: Heart healthy GI Prophylaxis: N/a DVT Prophylaxis: SCDs IV fluids: None Lines/Tubes: Peripheral IV Code Status: Full code Quality VTE Prophylaxis VTE prophylaxis: mechanical ordered Hospitalist [facility] Advance Care Plan I have confirmed that the patient's Advanced Care Plan is present, code status is documented, or surrogate decision maker is listed in patient medical record.: Yes Medication Reconciliation I have utilized all available resources to obtain, update and review the patients current medications (includes all prescriptions, OTC, herbals, cannabis, and nutritional supplements).: Yes
--- NOTE | 2024-11-14 20:04 | ADMGEN ---
This patient, Sara Handley, was admitted to IMU Room 212-01 at 1905. Patient/family oriented to hospital policies and general routines including ID bracelet, bed and alarms, visiting hours, pain management, procedures, bathroom and other care routines, personal items, smoking policy, room service/diet, and visiting hours. Information on how to activate the Rapid Response Team has been discussed. Patient/Family are encouraged to report perceived risks to care and to ask questions if they do not understand what they are told or what they should do.
[2024-11-15] VITALS (7 sets, daily range): BP systolic 120–131; BP diastolic 69–80; PULSE 61–96; RESP 12–15; TEMP 36.5–36.8; O2SAT 97–99
[2024-11-15 04:31] LABS: Hematocrit 35.0 % (37.0-47.0); Hemoglobin 11.4 g/dL (12.0-15.0); Immature Granulocyte Percent A 0.0 % (0-0.5); Lymphocytes Absolute Auto 1.38 K/mm3 (0.9-3.2); Mean Corpuscular HGB Conc 32.6 g/dl (32-36); Mean Corpuscular Hemoglobin 31.1 pg (26-34); Mean Corpuscular Volume 95.6 fl (80-100); Nucleated Red Blood Cells Absolute Auto 0.000 K/mm3 (0.0-0.012); Nucleated Red Blood Cells Perc 0.0 % (0.0-0.2); Platelet Count Result 236 k/mm3 (150-375); Red Blood Count 3.66 M/mm3 (4.2-5.4); White Blood Count 3.7 K/mm3 (4.5-10.0)
[2024-11-15 04:44] LABS: Anion Gap 5 mmol/L (4-12); Blood Urea Nitrogen 13 mg/dL (7-17); Calcium 9.2 mg/dL (8.4-10.2); Carbon Dioxide 29 mmol/L (22-30); Chloride 102 mmol/L (98-107); Estimated CRCL calculation 109 ml/min; Estimated Glomerular Filt Rate > 60; Glucose 82 mg/dL (65-110); Potassium 4.0 mmol/L (3.4-5.0); Sodium 136 mmol/L (137-145)
[2024-11-15] MEDS: ACETAMINOPHEN 325 MG TABLET 650 MG PO (08:33)
[2024-11-15] MEDS: METOPROLOL SUCCINATE EXT REL 12.5 MG TABCR PO (08:34)
[2024-11-15] MEDS: ASPIRIN 81 MG ENTERIC TABLET PO (08:34)
[2024-11-15 09:15] LABS: Alanine Aminotransferase 335 U/L (6-35); Albumin Level 3.9 g/dL (3.5-5.1); Alkaline Phosphatase 102 U/L (38-126); Aspartate Amino Transferase 165 U/L (14-36); Bilirubin,Total 0.4 mg/dL (0.2-1.3); Total Protein 6.3 g/dL (6.3-8.2)
[2024-11-15 09:19] LABS: SPREG INTERNAL CONTROL Positive; Serum Qual hCG Negative
--- NOTE | 2024-11-15 09:38 | P.CONCA_ITS ---
Assessment and Plan Assessment and plan (1) Elevated BP without diagnosis of hypertension: Code(s): R03.0 - Elevated blood-pressure reading, without diagnosis of hypertension Status: Acute (2) Palpitations: Code(s): R00.2 - Palpitations Status: Acute (3) History of sleeve gastrectomy: Code(s): Z90.3 - Acquired absence of stomach [part of] Status: Acute (4) History of abdominal hernia: Code(s): Z87.19 - Personal history of other diseases of the digestive system Status: Acute (5) Anemia: Code(s): D64.9 - Anemia, unspecified Status: Acute (6) Migraines: Code(s): G43.909 - Migraine, unspecified, not intractable, without status migrainosus Status: Acute Plan Palpitations. Patient reports daily palpitations lasting 15-20 minutes at a time. Occur at rest. No associated chest pain, dizziness or syncope. Currently patient in NSR with no arrhythmia noted. Last echo showed EF of 65%. She is anemic and iron studies are pending as may contribute to symptoms. Her electrolytes are stable. Will check TSH. Continue low dose BB at this time. Can plan for OP classroom monitor and office follow up. Abnormal EKG: Noted to have NSR with T wave inversion V1, V3, avr and avf. This was noted on previous EKGs, no acute ST/T wave cahnges. She denies chest pain or pressure. Troponin are negative x 2. She had LHC earlier this year with minimal coronary irregularities. At this time no invasive w/u is planned. Elevated blood pressure. Noted on admission. Unclear if secondary to anxiety as she was planned for dental extraction. Will continue her low dose Metoprolol 12.5 mg daily. Will have her monitor BP at home. If above goal of 130/80, will add additional anti-hypertensive therapy. could consider Cardizem CD 120mg daily as does not tolerate higher doses of BB due to fatigue. Elevated LFTs. Etiology unclear at this time. further work up underway by primary team at this time. History of Gastric sleeve Anemia. May be iron deficiency in setting of gastric surgery. iron studies are pending Patient had LHC earlier this year with minimal coronary disease. This admission troponin are negative and EKG with no acute ST/T wave changes. Would be stable from CV standpoint for dc home later today when ok with others. Would recommend 2 week tele monitor and home BP monitoring. History of Present Illness History of Present Illness Consult date/time: 11/15/24 09:38 Requesting physician: Mara Rob MD Consult reason: hypertension and Other (palpitations ) Reason For Visit: Cardiac Rule Out Narrative: Sara Handley is a 48 y.o. female who presented to the ER with c/o uncontrolled HTN. She reports she went to the dentist yesterday for an extraction and was found to have elevated BP. She was referred to ER for further evaluation and management. In the ER her BP was noted to be elevated at 151/91. She states her PCP was concerned about her blood pressure as well. She states she has been taking her Metoprolol 12.5mg daily as had fatigue at the 25 mg daily dose. She denies any chest pain or pressure. No reports of shortness of breath. Her main concern is a pounding heart beat that comes daily. She states episodes occur at rest and last 10-15 minutes at a time. No dizziness or feeling lilght headed. She does admit to drink to sodas a day becasue they help with her migraines. She states her apple watch records her HR as high as 180 at times. Of note patient had cardiac cath earlier this year with minimal disease. Review of Systems 2 Review of Systems: All systems reviewed & are unremarkable except as noted in HPI and below PMFSH Past Medical History Medical History Endometriosis Eczema Gastric ulcer Asthma Hypertension Hiatal hernia Colon polyp Hyperlipidemia Migraines Vitamin D deficiency Insomnia Screening mammogram for breast cancer Tobacco abuse Anemia Anxiety Allergies Depression GERD (gastroesophageal reflux disease) Surgical History Surgical History History of sleeve gastrectomy 2017 S/P cholecystectomy H/O hernia repair History of hysterectomy Family History Family History Father Family history of lung cancer Hypertension Heart disease Cancer Grandparent Cancer Hypertension Depression Diabetes mellitus Anxiety Acute myocardial infarction Heart disease Mother Hypertension Depression Anxiety Sibling Depression Anxiety Grandparent Cancer Maternal grandmother Cerebrovascular accident Other Family history of allergic disorder Family history of cardiovascular disease Social History Social History Smoking packs per day: 1 Smoking cigarettes per day: 20.0 Years smoked: 33 Smoking pack-years: 33.00 Smoking status: Former smoker Tobacco type: cigarettes Alcohol intake: current Drinks per week: 1 Alcohol use details: Rarely Substance use: never Substance use type: does not use Do You Feel Safe in your Home?: Yes Lack of Transportation: No Lack of Food: Never True Current Housing: I Have Housing Concerned About Future Housing: No Difficulty Paying Gas/Electric Bills: No Difficulty Paying for Meds: No Currently Unemployed: No Education: High School Diploma/GED Difficulty w/ Childcare or Family Care: No Living arrangements: with family Spiritual care concerns: No Agree to blood products: Yes Meds Home Medications and Allergies Home Medications ?Medication ?Instructions ?Recorded ?Confirmed ?Type aspirin 81 mg tablet,delayed 81 mg PO QAM #30 tabs 11/14/24 Rx release fluoxetine 40 mg capsule 40 mg PO DAILY #30 caps 02/1311/14/24 Rx quetiapine 25 mg tablet (Seroquel) 25 mg PO QHS #30 ta bs 04/23/24 11/14/24 Rx metoprolol succinate 25 mg 12.5 mg (1/2 x 25 mg) PO DA JUAN [place]ANCISCO #15 10/09/24 11/14/24 Rx tablet,extended release 24 hr tabs Allergies Allergy/AdvReac Type Severity Reaction Status Date / Time metformin Allergy Unknown Other Verified 11/14/24 08:54 [email or web address] Allergy Unknown Other Verified 11/14/24 08:54 goucophage Allergy Unknown unknown Uncoded 05/24/24 08:26 Vital Signs Vital Signs - 24 hr 11/14/24 10:02 11/14/24 11:40 11/14/24 12:37 Temperature Pulse Rate 64 61 85 Respiratory Rate 20 16 17 Blood Pressure 155/105 H 141/101 H 140/72 Pulse Oximetry 97 99 99 Oxygen Delivery 11/14/24 13:15 11/14/24 14:19 11/14/24 16:44 Temperature Pulse Rate 63 68 65 Respiratory Rate 16 15 15 Blood Pressure 162/105 H 157/93 H 159/98 H Pulse Oximetry 98 98 97 Oxygen Delivery 11/14/24 19:09 10/02/25 19:15 11/14/24 20:00 Temperature 36.4 C Pulse Rate 85 62 Respiratory Rate 14 16 Blood Pressure 127/93 H 178/97 H Pulse Oximetry 97 100 Oxygen Delivery Room Air 11/14/24 20:00 11/14/24 20:00 11/14/24 23:57 Temperature Pulse Rate 62 76 Respiratory Rate Blood Pressure Pulse Oximetry Oxygen Delivery Room Air 11/15/24 00:00 11/15/24 00:00 11/15/24 03:47 Temperature 36.6 C Pulse Rate 74 64 Respiratory Rate 12 Blood Pressure 131/77 Pulse Oximetry 98 Oxygen Delivery Room Air 11/15/24 04:00 11/15/24 04:00 11/15/24 07:58 Temperature 36.5 C 36.8 C Pulse Rate 61 61 70 Respiratory Rate 12 15 Blood Pressure 128/74 120/69 Pulse Oximetry 99 97 Oxygen Delivery 11/15/24 08:34 Temperature Pulse Rate 96 Respiratory Rate Blood Pressure Pulse Oximetry Oxygen Delivery Exam 2 Const: General: comfortable and no acute distress Neck: Neck: supple and no JVD Thyroid: thyroid normal Carotids: no bruits Resp: Effort & Inspection: normal respiratory effort Auscultation: clear to auscultation bilaterally Cardio: Rate: regular rate Rhythm: regular rhythm Skin: General skin exam: normal color Lesions: no lesions noted Neuro: General: gait normal Speech: normal speech Extrem: General: normal to inspection Psych: Mental Status: mental status grossly normal Results Labs and Meds 11/15/24 04:05 11/15/24 04:05 Lab results: Cardiac Enzymes 11/14/24 11/14/24 11/15/24 Range/Units 11:51 15:04 04:05 AST 165 H (14-36) U/L Troponin I < 0.012 < 0.012 (0.000-0.034) ng/mL CBC 11/15/24 Range/Units 04:05 WBC 3.7 L (4.5-10.0) K/mm3 RBC 3.66 L (4.2-5.4) M/mm3 Hgb 11.4 L (12.0-15.0) g/dL Hct 35.0 L (37.0-47.0) % Plt Count 236 (150-375) k/mm3 Lymph # (Auto) 1.38 (0.9-3.2) K/mm3 [place] # (Auto) 0.3 (0.1-0.6) K/mm3 Eos # (Auto) 0.1 (0-0.3) K/mm3 Baso # (Auto) 0.0 (0.0-0.1) K/mm3 Comprehensive Metabolic Panel 11/15/24 Range/Units 04:05 Sodium 136 L (137-145) mmol/L Potassium 4.0 (3.4-5.0) mmol/L Chloride 102 (98-107) mmol/L Carbon Dioxide 29 (22-30) mmol/L BUN 13 (7-17) mg/dL Creatinine 0.58 L (0.7-1.0) mg/dL Glucose 82 (65-110) mg/dL Calcium 9.2 (8.4-10.2) mg/dL Direct Bilirubin 0.0 (0-0.3) mg/dL AST 165 H (14-36) U/L ALT 335 H (6-35) U/L Alkaline Phosphatase 102 (38-126) U/L Total Protein 6.3 (6.3-8.2) g/dL Albumin 3.9 (3.5-5.1) g/dL Intake and Output 11/14/24 11/15/24 11/15/24 23:59 07:59 15:59 Intake Total 400 Output Total 700 Balance -300 Intake: Oral 400 Output: Urine 700 Patient Weight 11/15/24 23:59 Weight 82.5 kg Imaging and Cardiology Echo: report reviewed (02/2024 with EF of 65-70% diastolic dysfunction and anterior, apical and lateral wall hypokinesis ) Cardiac cath: report reviewed (02/2024 with minimal CAD ) EKG results: report reviewed EKG Interpretation EKG: sinus rhythm and no acute changes
[2024-11-15 09:49] LABS: Iron 80 ug/dL (37-170)
[2024-11-15 10:27] LABS: Acetaminophen < 10 ug/mL (10-30)
[2024-11-15 10:55] LABS: Thyroid Stimulating Hormone Reflex 0.473 uIU/mL (0.465-4.68)
--- NOTE | 2024-11-15 13:20 | PM.DS ---
DS: Admitting Diagnosis Discharge Date 11/15/2024 Admitting Diagnosis Elevated blood pressure DS: Discharge Diagnosis Discharge Diagnosis (1) Hypertension: Qualifiers: Hypertension type: primary hypertension Qualified Code(s): I10 - Essential (primary) hypertension Code(s): I10 - Essential (primary) hypertension Status: Acute (2) Transaminitis: Code(s): R74.01 - Elevation of levels of liver transaminase levels Status: Acute DS: Summary Hospital Course Hospital Course: 48-year-old female with history of hypertension, asthma, anxiety depression, GERD, hyperlipidemia, status post gastric sleeve. She has had uncontrolled hypertension prior to admission she is on metoprolol 12.5 mg p.o. daily as a 25 mg dose cause fatigue. She has been under some stress recently, family member has recently. She was at the dentist on 11/14/2024 getting ready for a tooth extraction which she was found to have elevated blood pressure and sent to [facility]. On arrival blood pressure is 187/100. She was restarted on her metoprolol 12.5 mg. She was started on amlodipine 5 mg p.o. q.day. her blood pressure has improved significantly, on discharge it is 126/80. She complained of some palpitations and has been set up with a Holter monitor and follow-up with Cardiology. She will continue aspirin, he had a left heart catheterization in 2024 with minimal coronary disease. Elevated LFTs. Patient reports drinking 3 beers about 4 days prior to admission. She drinks sometimes on the weekends 3 or 4 beers. She has some medications which can cause transaminitis. She denies drinking energy drinks, she stop smoking this when she had her left heart catheterization. She does not use IV drugs, no risky sexual activity. We performed a liver ultrasound which is unremarkable. She takes a probiotic at home but otherwise no vitamins or herbs. We have also obtained multiple other labs to investigate other causes of transaminitis. It could be caused by severe hypertension. None the less, the patient's abdominal exam is completely benign and she feels at her baseline. She does not want to stay for further monitoring or workup and wants to follow-up on these lab test with her PCP. She does not want change any medications other than starting the amlodipine for her blood pressure. Will write for the patient have a repeat CMP in 2 days and follow up with her PCP. Relatively stable for discharge home on 11/15/2024, patient requesting discharge. Time Spent with Patient Time attestation: Total time spent providing and/or coordinating discharge services: Time spent: Greater than 30 minutes Exam Const: General: comfortable and no acute distress HENMT: Mouth: Yes moist mucous membranes Eyes: Pupils: Equal, round and reactive pupils present Neck: Neck: supple Resp: Effort & Inspection: normal respiratory effort Auscultation: clear to auscultation bilaterally Cardio: Rate: regular rate Rhythm: regular rhythm GI: Inspection: non-distended GI Palp: Yes Soft to palpation, No Tenderness to palpation present (GI) and No Guarding due to palpation present (GI) Other: No organomegaly appreciated Neuro: Motor exam (neuro): 5/5 motor strength present throughout Extrem: General: no edema DS: Data Data Completed and Pending Labs on day of discharge: Labs from last 24 hours 11/15/24 11/15/24 11/15/24 09:34 09:01 04:05 WBC 3.7 L RBC 3.66 L Hgb 11.4 L Hct 35.0 L MCV 95.6 MCH 31.1 MCHC 32.6 RDW 12.4 Plt Count 236 MPV 9.6 Immature Gran % (Auto) 0.0 Neut % (Auto) 49.3 Lymph % (Auto) 37.6 [place] % (Auto) 9.3 H Eos % (Auto) 3.5 Baso % (Auto) 0.3 Lymph # (Auto) 1.38 [place] # (Auto) 0.3 Eos # (Auto) 0.1 Baso # (Auto) 0.0 Abs Immat Gran (auto) 0.00 Absolute Neuts (auto) 1.8 Absolute Nucleated RBC 0.000 Nucleated RBC % 0.0 Sodium 136 L Potassium 4.0 Chloride 102 Carbon Dioxide 29 Anion Gap 5 BUN 13 Creatinine 0.58 L Estim Creat Clear Calc 109 Estimated GFR > 60 Glucose 82 Calcium 9.2 Iron Total Bilirubin 0.4 Direct Bilirubin 0.0 AST 165 H ALT 335 H Alkaline Phosphatase 102 Troponin I Total Protein 6.3 Albumin 3.9 Ceruloplasmin Pending TSH (Reflex) 0.473 Serum HCG, Qual Negative Acetaminophen < 10 L Actin IgG Antibody Pending Livr/Kid Microsome 1 Ab Pending Hepatitis A IgM Ab Hep Bs Antigen Hep B Core IgM Ab Hepatitis C Ab Screen 11/15/24 11/14/24 04:04 15:04 WBC RBC Hgb Hct MCV MCH MCHC RDW Plt Count MPV Immature Gran % (Auto) Neut % (Auto) Lymph % (Auto) [place] % (Auto) Eos % (Auto) Baso % (Auto) Lymph # (Auto) [place] # (Auto) Eos # (Auto) Baso # (Auto) Abs Immat Gran (auto) Absolute Neuts (auto) Absolute Nucleated RBC Nucleated RBC % Sodium Potassium Chloride Carbon Dioxide Anion Gap BUN Creatinine Estim Creat Clear Calc Estimated GFR Glucose Calcium Iron 80 Total Bilirubin Direct Bilirubin AST ALT Alkaline Phosphatase Troponin I < 0.012 Total Protein Albumin Ceruloplasmin TSH (Reflex) Serum HCG, Qual Acetaminophen Actin IgG Antibody Livr/Kid Microsome 1 Ab Hepatitis A IgM Ab Pending Hep Bs Antigen Pending Hep B Core IgM Ab Pending Hepatitis C Ab Screen Pending Discharge Plan Discharge Attending physician on discharge: Mara Rob Consulting providers: Demetrio Mei Discharging Clinician: Mara Rob Patient Disposition: Home Activity: june shower Diet: as tolerated Patient Instructions: Antibiotic Form, Heart Healthy Diet (GEN) Patient Language: Thai Stand Alone Forms: General Discharge Information Follow-up/Referrals: Darcie Kwan NP [Primary Care Provider, [facility]] Discharge Medications: New amlodipine [Norvasc] 5 mg Tablet 5 mg PO DAILY Qty: 30 0RF Continued fluoxetine 40 mg capsule 40 mg PO DAILY Qty: 30 11RF aspirin 81 mg Tablet,Delayed Release (Dr/Ec) 81 mg PO QAM Qty: 30 0RF quetiapine [Seroquel] 25 mg tablet 25 mg PO QHS Qty: 30 11RF metoprolol succinate 25 mg tablet extended release 24 hr 12.5 mg PO DAILY Qty: 15 5RF Other Ambulatory Orders: Comprehensive Metabolic Panel (Routine) Timeframe: 2 Days Location: Determined by Patient Ordered By: Mara SINGLETARY cardiac event monitor (Routine) Timeframe: 2 Weeks Location: Determined by Patient Ordered By: Anayeli Turner Date of admission: 11/14/24 14:50 Primary Care Provider: Darcie Kwan Admitting Provider: Anai Cunningham Attending physician on admission: Anai Cunningham Condition: Stable Hospitalist MIPS Heart Failure (Exclusion) Patient has history of Heart Transplant or Left Ventricular Assistive Device?: No IF YES, STOP HERE Heart Failure (Qualifier) Patient has current or prior documentation of LVEF less than or equal to 40%, or mod/servere depressed LVSF?: No IF NO, STOP HERE
[2024-11-15 14:25] LABS: Hepatitis B Surface Antigen Negative (Negative)
[2024-11-15 14:31] LABS: HAV RESULT Negative (Negative); Hepatitis B Core IgM Result Negative (Negative)
== END 2024-11-15 13:40 | disposition home or self-care (01) ==
LOC: ANHED 09:23 → ANHIMU 18:26
PROVIDERS: Emergency Medicine; Nurse Practitioner Family; Student in an Organized Health Care Education/Training Program; Admitting Provider Internal Medicine; Emergency Provider Nurse Practitioner Family; PCP Nurse Practitioner Family; Visit Provider General Practice
DX: I10 Essential (primary) hypertension (principal); R74.01 Elevation of levels of liver transaminase levels; R00.2 Palpitations; R94.31 Abnormal electrocardiogram [ECG] [EKG]; R11.2 Nausea with vomiting, unspecified; R61 Generalized hyperhidrosis; R42 Dizziness and giddiness; E78.1 Pure hyperglyceridemia; K21.9 Gastro-esophageal reflux disease without esophagitis; E78.5 Hyperlipidemia, unspecified; F41.8 Other specified anxiety disorders; D64.9 Anemia, unspecified; J45.909 Unspecified asthma, uncomplicated; N80.9 Endometriosis, unspecified; G43.909 Migraine, unspecified, not intractable, without status migrainosus; E55.9 Vitamin D deficiency, unspecified; Z98.890 Other specified postprocedural states; Z87.19 Personal history of other diseases of the digestive system; Z90.49 Acquired absence of other specified parts of digestive tract; Z79.82 Long term (current) use of aspirin; Z90.710 Acquired absence of both cervix and uterus; Z98.84 Bariatric surgery status; Z79.899 Other long term (current) drug therapy; Z87.891 Personal history of nicotine dependence; Z80.1 Family history of malignant neoplasm of trachea, bronchus and lung; Z80.9 Family history of malignant neoplasm, unspecified; Z83.3 Family history of diabetes mellitus; Z82.3 Family history of stroke; Z82.49 Family history of ischemic heart disease and other diseases of the circulatory system
CPT/HCPCS: 36415; 71046; 76705; 80048; 80053; 80074; 80076; 80143; 82390; 83540; 83690; 84443; 84484; 84703; 85025; 85380; 85610; 85730; 86015; 86376; 93005; 96374; 96376; 99285; A9270; G0378; J2270